=== PATIENT | female | born 1945 | race Caucasian/White ===

== ENCOUNTER 2019-12-26 11:50 | Outpatient (CLI) | payer MEDICARE, SELFPAY ==
[2019-12-26 12:04] LABS: Basophils Absolute Auto 0.02 K/mm3 (0.00-0.10); Basophils Percent Auto 0.3 % (0.0-1.0); Eosinophils Absolute Auto 0.33 K/mm3 (0.02-0.50); Eosinophils Percent Auto 4.8 % (1.0-6.0); Hematocrit 36.6 % (35.0-42.0); Hemoglobin 11.7 g/dL (11.7-13.8); Immature Granulocyte Absolute 0.02 K/mm3 (0.00-0.00); Immature Granulocyte Percent A 0.3 % (0.0-0.0); Lymphocytes Absolute Auto 1.74 K/mm3 (1.10-4.50); Lymphocytes Percent Auto 25.1 % (18.0-42.0); Mean Corpuscular Hemoglobin 29.4 pg (27.0-31.0); Mean Platelet Volume 10.2 fl (9.2-11.8); Monocytes Absolute Auto 0.65 K/mm3 (0.10-0.90); Monocytes Percent Auto 9.4 % (2.0-11.0); Neutrophils Absolute Auto 4.2 K/mm3 (1.7-7.2); Neutrophils Percent Auto 60.1 % (50.0-70.0); Platelet Count Result 249 K/mm3 (150-420); Red Blood Count 3.98 M/mm3 (4.20-5.40); Red Cell Distribution Width 13.6 % (11.6-14.4); White Blood Count 6.9 K/mm3 (4.8-10.8)
[2019-12-26 13:23] LABS: Alanine Aminotransferase 18 U/L (14-59); Albumin Level 3.4 g/dL (3.4-5.0); Alkaline Phosphatase 76 U/L (46-116); Anion Gap 11.9 mmol/L (7-16); Aspartate Amino Transferase 17 U/L (15-37); Bilirubin,Total 0.3 mg/dL (0.00-1.00); Blood Urea Nitrogen 20 mg/dL (7-18); Calcium 9.4 mg/dL (8.5-10.1); Carbon Dioxide 31 mmol/L (21-32); Chloride 98 mmol/L (98-108); Cholesterol 166 mg/dL (0-200); Estimated Glomerular Filt Rate 42; Free T4 Free Thyroxine 1.42 ng/dL (0.76-1.46); Glucose 280 mg/dL (70-99); HDL Direct 52 mg/dL (40-60); LDL Cholesterol Calculated 85 mg/dL (<130); Osmolality Calculated 294 mOsm/kg (285-295); Potassium 4.9 mmol/L (3.5-5.1); Sodium 136 mmol/L (136-145); Thyroid Stimulating Hormone 6.93 uIU/mL (0.36-3.74); Total Protein 7.1 g/dL (6.4-8.2); Triglycerides 146 mg/dL (0-150); Vitamin B12 1394 pg/mL (193-986)
[2019-12-26 14:54] LABS: Add Urine Microscopic? YES; Appearance Urine Cloudy (Clear); Bilirubin Urine Negative (Negative); Blood Urine Negative (Negative); Color Urine Yellow (Yellow); Glucose Urine UA Trace (Negative); Ketones Urine Negative (Negative); Leukocyte Esterase Ur 3+ LEU/UL (Negative); Nitrate Urine Negative (Negative); Protein Urine Negative (Negative); Urobilinogen Urine 0.2 mg/dL (0.2-1.0); pH Urine 6.5 (5.0-8.0)
[2019-12-26 15:02] LABS: Bacteria Urine 3+ /hpf; RBC Urine 0-2 /hpf (0-2); Squamous Epithelial Cell Urine Rare /hpf (Few); WBC Urine 51-75 /hpf (0-3)
[2019-12-29 10:33] LABS: Vitamin D 25 Hydroxy 30 ng/mL (30-100)
[2019-12-31 09:33] LABS: Hemoglobin A1C 13.5 % (<5.7)
== END 2019-12-26 11:51 | disposition home or self-care (01) ==
LOC: CHSLAB 11:53
PROVIDERS: PCP Internal Medicine; Visit Provider Internal Medicine
DX: E03.9 Hypothyroidism, unspecified (principal); E11.65 Type 2 diabetes mellitus with hyperglycemia; D51.9 Vitamin B12 deficiency anemia, unspecified; I10 Essential (primary) hypertension; M81.0 Age-related osteoporosis without current pathological fracture; R31.9 Hematuria, unspecified
CPT/HCPCS: 36415; 80053; 80061; 81001; 82306; 82607; 83036; 84439; 84443; 85025; 87077; 87086; 87088; 87186

== ENCOUNTER 2021-01-08 14:58 | Outpatient (CLI) | payer MEDICARE, SELFPAY ==
[2021-01-08 15:17] LABS: Basophils Absolute Auto 0.03 K/mm3 (0.00-0.10); Basophils Percent Auto 0.5 % (0.0-1.0); Eosinophils Absolute Auto 0.27 K/mm3 (0.02-0.50); Eosinophils Percent Auto 4.8 % (1.0-6.0); Hematocrit 35.2 % (35.0-42.0); Hemoglobin 11.5 g/dL (11.7-13.8); Immature Granulocyte Absolute 0.02 K/mm3 (0.00-0.00); Immature Granulocyte Percent A 0.4 % (0.0-0.0); Lymphocytes Absolute Auto 1.28 K/mm3 (1.10-4.50); Lymphocytes Percent Auto 22.6 % (18.0-42.0); Mean Corpuscular HGB Conc 32.7 g/dL (32.0-36.0); Mean Corpuscular Hemoglobin 31.1 pg (27.0-31.0); Mean Corpuscular Volume 95.1 fL (78.0-102.0); Mean Platelet Volume 9.8 fl (9.2-11.8); Monocytes Absolute Auto 0.49 K/mm3 (0.10-0.90); Monocytes Percent Auto 8.6 % (2.0-11.0); Neutrophils Absolute Auto 3.6 K/mm3 (1.7-7.2); Neutrophils Percent Auto 63.1 % (50.0-70.0); Platelet Count Result 257 K/mm3 (150-420); Red Cell Distribution Width 13.5 % (11.6-14.4); White Blood Count 5.7 K/mm3 (4.8-10.8)
[2021-01-08 15:33] LABS: Add Urine Microscopic? YES; Appearance Urine Cloudy (Clear); Bilirubin Urine Negative (Negative); Blood Urine 3+ (Negative); Color Urine Light Yellow (Yellow); Glucose Urine UA 3+ (Negative); Ketones Urine Trace (Negative); Leukocyte Esterase Ur Trace LEU/UL (Negative); Nitrate Urine Positive (Negative); Protein Urine Negative (Negative); Urobilinogen Urine 0.2 mg/dL (0.2-1.0); pH Urine 5.5 (5.0-8.0)
[2021-01-08 15:34] LABS: RBC Urine 21-50 /hpf (0-2); Squamous Epithelial Cell Urine Few /hpf (Few); WBC Urine >75 /hpf (0-3)
[2021-01-08 15:36] LABS: Bacteria Urine 4+ /hpf
[2021-01-08 15:45] LABS: Creatinine Urine 54.09 mg/dL (40-278); MALB Creatinine Ratio 25.3 mg/g (0-30); Microalbumin Urine Random 13.7 mg/L
[2021-01-08 15:47] LABS: Hemoglobin A1C 13.7 % (<5.7)
[2021-01-08 16:21] LABS: Alanine Aminotransferase 15 U/L (14-59); Alkaline Phosphatase 145 U/L (46-116); Anion Gap 12 mmol/L (8-16); Aspartate Amino Transferase 11 U/L (15-37); Bilirubin,Total 0.3 mg/dL (0.00-1.00); Blood Urea Nitrogen 21 mg/dL (7-18); Calcium 9.1 mg/dL (8.5-10.1); Carbon Dioxide 25 mmol/L (21-32); Chloride 100 mmol/L (98-108); Cholesterol 142 mg/dL (0-200); Estimated Glomerular Filt Rate 51; Glucose 356 mg/dL (70-99); HDL Direct 47 mg/dL (40-60); LDL Cholesterol Calculated 63 mg/dL (<130); Osmolality Calculated 301 mOsm/kg (285-295); Potassium 5.1 mmol/L (3.5-5.1); Sodium 137 mmol/L (136-145); Thyroid Stimulating Hormone 7.31 uIU/mL (0.36-3.74); Total Protein 6.5 g/dL (6.4-8.2); Triglycerides 159 mg/dL (0-150); Vitamin B12 1498 pg/mL (193-986)
[2021-01-12 09:13] LABS: T4 Thyroxine 8.1 mcg/dL (5.1-11.9)
== END 2021-01-08 14:59 | disposition home or self-care (01) ==
PROVIDERS: PCP Internal Medicine; Visit Provider Internal Medicine
DX: E03.9 Hypothyroidism, unspecified (principal); E11.65 Type 2 diabetes mellitus with hyperglycemia; D51.9 Vitamin B12 deficiency anemia, unspecified; E78.5 Hyperlipidemia, unspecified; R82.90 Unspecified abnormal findings in urine
CPT/HCPCS: 36415; 80053; 80061; 81001; 82043; 82607; 83036; 84436; 84443; 85025; 87086; 87186

== ENCOUNTER 2021-04-03 12:59 | Outpatient (CLI) | payer MEDICARE, SELFPAY ==
[2021-04-03 13:48] LABS: Anion Gap 8 mmol/L (8-16); Blood Urea Nitrogen 17 mg/dL (7-18); Carbon Dioxide 28 mmol/L (21-32); Chloride 103 mmol/L (98-108); Estimated Glomerular Filt Rate 49; Glucose 251 mg/dL (70-99); Osmolality Calculated 297 mOsm/kg (285-295); Potassium 4.6 mmol/L (3.5-5.1); Sodium 139 mmol/L (136-145)
== END 2021-04-03 13:00 | disposition home or self-care (01) ==
LOC: CHSLAB 13:03
PROVIDERS: PCP Internal Medicine; Visit Provider Anesthesiology
DX: E11.9 Type 2 diabetes mellitus without complications (principal)
CPT/HCPCS: 36415; 80048

== ENCOUNTER 2021-04-15 02:28 | Day surgery (SDC) | payer MEDICARE, SELFPAY ==
[2021-04-02 15:12] VITALS: BMI 41.2
--- NOTE | 2021-04-15 07:35 | WPDHPUPDATE1 ---
History and Physical Update Update Date/Time: 04/15/21 07:35 History and Physical has been reviewed, including an updated exam of the patient. There are NO changes in the patient's condition. Risks, benefits, and alternatives have been discussed and questions answered. Patient agrees to proceed with procedure.
--- NOTE | 2021-04-15 07:36 | WPDHPUPDATE1 ---
History and Physical Update Update Date/Time: 04/15/21 07:36 History and Physical has been reviewed, including an updated exam of the patient. There are NO changes in the patient's condition. Risks, benefits, and alternatives have been discussed and questions answered. Patient agrees to proceed with procedure.
--- NOTE | 2021-04-15 08:08 | WPDHPUPDATE1 ---
History and Physical Update Update Date/Time: 04/15/21 08:08 History and Physical has been reviewed, including an updated exam of the patient. There are NO changes in the patient's condition. Risks, benefits, and alternatives have been discussed and questions answered. Patient agrees to proceed with procedure.
--- NOTE | 2021-04-15 08:09 | WPDHPUPDATE1 ---
History and Physical Update Update Date/Time: 04/15/21 08:09 History and Physical has been reviewed, including an updated exam of the patient. There are NO changes in the patient's condition. Risks, benefits, and alternatives have been discussed and questions answered. Patient agrees to proceed with procedure.
[2021-04-15 08:47] VITALS: BP 149/77; PULSE 99; RESP 18; TEMP 36.4; O2SAT 96
[2021-04-15] MEDS: LACTATED RINGERS 1,000 ML 30 ML IV CONT (09:05)
[2021-04-15 09:08] LABS: Glucose Point of Care 242 mg/dl (65-105)
--- NOTE | 2021-04-15 09:34 | WPDANESEPPF ---
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 with Frozen Section and Complex Repair or Local Tissue Transfer or Full Thickness Skin Graft - Ariel Chase MD Date/Time: 04/15/21 09:34 Surgeon: Ariel Chase MD Pre Op Diagnosis: bcca right upper bridge of nose Patient Data Age: 75 Gender: F Height: 1.57 m Weight: 102.27 kg Last Vital Signs Temp 36.4 C L 04/15/21 08:47 Pulse 99 04/15/21 08:47 Resp 18 04/15/21 08:47 BP 149/77 H 04/15/21 08:47 Pulse Ox 96 04/15/21 08:47 Allergies Allergy/AdvReac Type Severity Reaction Status Date / Time Penicillins AdvReac Itching Verified 04/15/21 09:17 Home Medications Medication Instructions Recorded Confirmed Type acetaminophen [Tylenol Arthritis 650 mg PO Q12H 06/01/19 04/15/21 History Pain] aspirin 81 mg PO DAILY 06/01/19 04/15/21 History gabapentin See Rx Instructions .ROUTE .COMPLEX 06/01/19 04/15/21 History glimepiride 2 mg PO BID 06/01/19 04/15/21 History glucosamine-chondroitin [Osteo 2 tablet PO DAILY 06/01/19 04/15/21 History Bi-Flex] levothyroxine 125 mcg PO DAILY 06/01/19 04/15/21 History lisinopril 20 mg PO DAILY 06/01/19 04/15/21 History loratadine [Claritin] 10 mg PO DAILY 06/01/19 04/15/21 History metformin 1,000 mg PO BID 06/01/19 04/15/21 History sg-ld-vauj-FA-Ca carb-vit K 1 tablet PO DAILY 06/01/19 04/15/21 History [Women's Multivitamin] omega 6-mus-ept-fish oil [Fish Oil] 1 cap PO DAILY 06/01/19 04/15/21 History omeprazole 40 mg PO DAILY 06/01/19 04/15/21 History pioglitazone [Actos] 45 mg PO DAILY 06/01/19 04/15/21 History pravastatin 20 mg PO DAILY 06/01/19 04/15/21 History sitagliptin [Januvia] 100 mg PO DAILY 06/01/19 04/15/21 History venlafaxine [Effexor XR] 37.5 mg PO DAILY 06/01/19 04/15/21 History vitamin H70-solav acid 2 tablet PO DAILY 06/01/19 04/15/21 History solifenacin 10 mg PO DAILY 04/02/21 04/15/21 History tramadol 50 mg BID PRN 04/02/21 04/15/21 History Laboratory Tests 04/15/21 09:03 POC Capillary Glucose 242 mg/dl H mg/dl (65-105) Patient hx anesthesia problems: none Family hx anesthesia problems: none Results Review: All pre-operative results and documents have been reviewed as part of the pre-operative evaluation. [facility] Past Medical History Medical History Anxiety Arthritis B12 deficiency Chronic knee pain Diabetes mellitus Dyslipidemia GERD (gastroesophageal reflux disease) Hx of malignant neoplasm of breast Hypertension Hypothyroidism Surgical History Surgical History History of lumpectomy of left breast Social History Social History Smoking packs per day: 0.5 Smoking cigarettes per day: 10.0 Years smoked: 10 Smoking pack-years: 5.00 Smoking status: Former smoker Tobacco type: cigarettes Second hand tobacco smoke exposure: No Additional smoking assessment comments: STATES QUIT AGE 29 Alcohol intake: current Alcohol use details: seldom Substance use: never Substance use type: does not use Living arrangements: with family Spiritual care concerns: No Anes - Eval Final PreProcedure Day of Procedure 04/15/21 09:34 Patient weight: morbidly obese Heart: regular rate and rhythm Lungs: decreased breath sounds Airway: Mallampati scale class II Neurological: other (alert) Last oral intake: >/= 8 hours ASA classification: III Emergent: no Anesthetic plan: proceed Anesthesia type and monitoring: general LMA and standard monitoring Results Review: All pre-operative results and documents have been reviewed as part of the pre-operative evaluation. Informed Consent: The patient's anesthetic plan and its attendant risks and benefits were discussed with the patien
[2021-04-15] MEDS: BALANCED SALT SOLN OPHTH IRRIG 30 ML BTL EACH EYE (10:15)
[2021-04-15] MEDS: LIDO 1%/EPINEPHRINE 1:100,000 50 ML VIAL INFILTRATE (11:20)
--- NOTE | 2021-04-15 11:29 | P.OPB_ITS ---
Procedure Note - Brief Procedure Note - Brief Date of procedure: 04/15/21 Pre-op diagnosis: bcca right upper bridge of nose Post-op diagnosis: same Procedure performed: 1.2 cm excision of BCC right upper nasal bridge with FS x2 and complex repair 3 cm. Anesthesia: MAC Surgeon: Ariel Chase MD Customer Care Associate: Siri North Estimated blood loss (mL): 1 Drains: No Packing: No Pathology: yes Complications: No immediate complications Condition: stable Disposition: same day
[2021-04-15 11:40] VITALS: BP 101/55; PULSE 102; RESP 20; O2SAT 93
[2021-04-15 11:48] LABS: Glucose Point of Care 192 mg/dl (65-105)
--- NOTE | 2021-04-15 12:05 | W.PM.PROC2 ---
Procedure Note - Detailed Date of Procedure 04/15/21 Pre-op Diagnosis bcca right upper bridge of nose Post-op Diagnosis same Procedure Performed 1.2 cm excision of basal cell carcinoma right upper bridge of nose with frozen section x2 and complex repair for the 3 cm Surgeon Ariel Chase MD Assistant In Nursing [facility] Anesthesia MAC Indications Prior biopsy Description of Procedure The the site on the patient's upper nose was marked in the holding area. She was taken to the operating room placed supine on the operating table. A time-out was held and confirmed. She was given IV sedation the face was prepped and draped in usual fashion the site was carefully marked for excision estimating the periphery needed. This area was widely infiltrated with 1% lidocaine with epinephrine. The excision was carried out through the skin and into subcutaneous tissue. The specimen was sent to pathology with a suture marking the most superior aspect as 12 o'clock. A the pathologist reported that the 7-8 o'clock margin was positive. A 2nd specimen comprising the 6-9 o'clock margin about 4 mm in width was sent with a new 7:00 a.m. margin marked with a suture. Pathologist report indicates all margins were free. Wound closure was accomplished by widely undermining of the margins on both sides this somewhat longitudinal excision of the undermining was 1-1/2 cm to 2 cm. This allowed approximation of the wound margins and closure with intradermal 4-0 Vicryl and a running 5 0 nylon standing cones were removed at both ends to improve contour. The patient is discharged home with instructions in wound care and follow-up. She has tramadol at home and may also use Tylenol and ice packs for comfort. Estimated Blood Loss 1 Drains No Packing No Pathology yes Complications No immediate complications Condition stable Disposition same day
[2021-04-15 12:10] VITALS: BP 140/79; PULSE 76; RESP 20
== END 2021-04-15 12:57 | disposition home or self-care (01) ==
PROVIDERS: PCP Internal Medicine; Visit Provider Plastic Surgery
PROC: (CPT 11642; principal; 2021-04-15 10:15)
DX: C44.311 Basal cell carcinoma of skin of nose (principal); E11.9 Type 2 diabetes mellitus without complications; I10 Essential (primary) hypertension; E78.5 Hyperlipidemia, unspecified; E03.9 Hypothyroidism, unspecified; K21.9 Gastro-esophageal reflux disease without esophagitis; F41.9 Anxiety disorder, unspecified; E53.8 Deficiency of other specified B group vitamins; Z85.3 Personal history of malignant neoplasm of breast; Z87.891 Personal history of nicotine dependence; E66.01 Morbid (severe) obesity due to excess calories; Z68.41 Body mass index [BMI] 40.0-44.9, adult; Z79.82 Long term (current) use of aspirin; Z79.84 Long term (current) use of oral hypoglycemic drugs
CPT/HCPCS: 11642; 13152; 82948; 88305; 88331; J2250; J2405; J2704; J3010; J7120

== ENCOUNTER 2021-05-08 15:59 | Inpatient (IN) | payer MEDICARE, SELFPAY ==
[2021-05-08] VITALS (14 sets, daily range): BP systolic 116–173; BP diastolic 53–119; PULSE 105–137; RESP 25–32; TEMP 36.6–37.4; O2SAT 92–99
--- NOTE | ~2021-05-08 | CT_ITS ---
EXAMINATION: CTA brain DATE: 05/08/2021 17:06 INDICATION: Altered mental status. TECHNIQUE: Computed tomographic angiography (CTA) of the head was performed with 100 mL Omnipaque-350 intravenous contrast. Automated exposure control and iterative reconstruction technique were employe d. The dose-length product was 707.79 mGy-cm. Maximum intensity projection 3D reconstructions were c reated. Volume-rendered 3D reconstructions of the intracranial arteries were created by the technolog ist on a separate workstation. COMPARISON: Head CT 05/08/2021 FINDINGS: There is mild motion artifact. There is diffuse brain volume loss. There are scattered area s of low attenuation in the cerebral white matter, which is within normal limits for the patient's ag e. There is no intracranial hemorrhage, acute infarction, or abnormal intracranial mass lesion. The v entricles are normal in size. The orbits are normal. The paranasal sinuses are clear. The mastoid air cells are normal. Right vertebral artery is dominant. There is no significant stenosis of basilar ar rosalinda or the posterior cerebral arteries. There is mild stenosis of the intracranial internal carotid arteries. The posterior communicating arteries are normal. There is no significant stenosis of the an terior or middle cerebral arteries. Anterior communicating artery is normal. There is no aneurysm. IMPRESSION: 1. Normal aging brain. No aneurysm or significant intracranial arterial stenosis. Reviewed, dictated and finalized at location A. IMPRESSION: 1. Normal aging brain. No aneurysm or significant intracranial arterial stenosi s.
--- NOTE | ~2021-05-08 | CT_ITS ---
EXAMINATION: CT brain wo con DATE: 05/08/2021 16:09 INDICATION: Unresponsive. Confusion. TECHNIQUE: Computed tomography (CT) of the head was performed without intravenous contrast. The mA wa s adjusted according to patient size. Iterative reconstruction technique was employed. The dose-lengt h product was 681.00 mGy-cm. COMPARISON: None FINDINGS: There is mild motion artifact. There is diffuse brain volume loss. There are scattered area s of low attenuation in the cerebral white matter, which is within normal limits for the patient's ag e. There is no intracranial hemorrhage, acute infarction, or abnormal intracranial mass lesion. The v entricles are normal in size. The paranasal sinuses are clear. The orbits are normal. The mastoid air cells are normal. IMPRESSION: 1. Normal aging brain. I called this result to Dr. Gilman. Reviewed, dictated and finalized at location A.
--- NOTE | ~2021-05-08 | MR_ITS ---
EXAMINATION: MR brain/brain stem wo con EXAM DATE: 05/09/2021 12:34 INDICATION: Stroke Like Symptoms. TECHNIQUE: Magnetic resonance imaging (MRI) of the brain/brain stem obtained without contrast. Love brian T1, axial diffusion, gradient echo (T2*), T1, T2, FLAIR sequences obtained. Correlation is made t o CT from yesterday. FINDINGS: Study is significantly limited due to patient motion. No acute infarction suspected. No hyd rocephalus, evidence of extra-axial collection or acute intracranial findings. IMPRESSION: Limited exam without findings identified. Reviewed, dictated and finalized at location A.
--- NOTE | ~2021-05-08 | CT_ITS ---
EXAMINATION: CTA chest EXAM DATE: 05/09/2021 10:28 INDICATION: r/o PE, Possible new onset A fib R/O PE TECHNIQUE: Spiral CT of the chest following intravenous injection of 100 mL Omnipaque 350. Axial, co nick and sagittal images of the chest were reviewed. Coronal maximum intensity pixel images of ches t reviewed. The dose-length product (DLP) for this examination was 899.94 mGy-cm. The exposure was tailored according to patient size (auto mA exposure control), and iterative reconstruction (ASIR) wa s used as additional dose reduction technique. There is no prior study for comparison. FINDINGS: There is no thoracic aortic dissection. Probable right lower lobe posterior and lateral seg mental pulmonary emboli. There are small to moderate bilateral pleural effusions. There is multi segm ental bilateral lower lobe, segmental right middle lobe atelectasis. There is also right upper lobe p redominant airspace disease without volume loss, pneumonia. Small pericardial effusion. Mild to moder ate coronary artery calcification. No mediastinal lymphadenopathy. There is 2.4 x 1.4 cm pancreatic body cystic mass. The differential diagnosis includes pseudocyst, in traductal papillary mucinous neoplasm (IPMN), mucinous cystic neoplasm (MCN), and the less common ser ous cystadenoma and neuroendocrine tumor. Correlate for history of pancreatitis. There is 1.5 cm lef t adrenal lesion, indeterminate on this postcontrast study but statistically most likely adenoma. Mod erate thoracic spondylosis. Subacute chronic appearing left rib fractures. IMPRESSION: 1. Probable right lower lobe segmental pulmonary emboli, low clot burden. 2. Right upper lobe posterior segmental pneumonia. 3. Small to moderate pleural effusions, multi segmental basilar atelectasis. 4. Cystic pancreatic mass; recommend 4-6 month follow-up abdomen CT or MRI. 5. Indeterminate left adrenal lesion statistically likely adenoma. Reviewed, dictated and finalized at location A.
--- NOTE | ~2021-05-08 | XR_ITS ---
EXAMINATION: XR chest 1V portable EXAM DATE: 05/10/2021 11:40 INDICATION: CHF, comparison. TECHNIQUE: Portable AP frontal chest x-ray was obtained. Comparison is made to prior examination from 05/08. FINDINGS: Some progression of diffuse lower lung zone airspace disease likely layering moderate right , small to moderate left pleural effusions. There is adjacent atelectasis. Superimposed right upper l obe pneumonia was suspected on recent CT chest. No pneumothorax. The cardiac silhouette is enlarged. There is pulmonary vascular congestion. IMPRESSION: 1. Progressing pleural effusions, adjacent atelectasis. 2. Progressing right upper lobe opacity probably pneumonia or edema. Reviewed, dictated and finalized at location A.
--- NOTE | ~2021-05-08 | XR_ITS ---
XR chest 1V portable 05/08/2021 17:33 Indication: Shortness of breath. Procedure: AP portable chest Comparison: 08/30/2013 Findings: Cardiomegaly with mild interstitial edema. Small right pleural effusion. There is right bas ilar airspace consolidation, likely atelectasis. No pneumothorax identified. Impression: 1: Cardiomegaly with interstitial edema and small right pleural effusion. Reviewed, dictated and finalized at location A. Impression: 1: Cardiomegaly with interstitial edema and small right pleural effusion.
[2021-05-08 16:11] LABS: Basophils Absolute Auto 0.03 K/mm3 (0.00-0.10); Basophils Percent Auto 0.4 % (0.0-1.0); Eosinophils Absolute Auto 0.48 K/mm3 (0.02-0.50); Eosinophils Percent Auto 5.8 % (1.0-6.0); Hematocrit 35.7 % (35.0-42.0); Hemoglobin 11.3 g/dL (11.7-13.8); Immature Granulocyte Absolute 0.03 K/mm3 (0.00-0.00); Immature Granulocyte Percent A 0.4 % (0.0-0.0); Lymphocytes Absolute Auto 1.28 K/mm3 (1.10-4.50); Lymphocytes Percent Auto 15.4 % (18.0-42.0); Mean Corpuscular HGB Conc 31.7 g/dL (32.0-36.0); Mean Corpuscular Hemoglobin 29.2 pg (27.0-31.0); Mean Corpuscular Volume 92.2 fL (78.0-102.0); Mean Platelet Volume 10.3 fl (9.2-11.8); Monocytes Absolute Auto 0.82 K/mm3 (0.10-0.90); Monocytes Percent Auto 9.9 % (2.0-11.0); Neutrophils Absolute Auto 5.7 K/mm3 (1.7-7.2); Neutrophils Percent Auto 68.1 % (50.0-70.0); Platelet Count Result 223 K/mm3 (150-420); Red Blood Count 3.87 M/mm3 (4.20-5.40); Red Cell Distribution Width 14.3 % (11.6-14.4); White Blood Count 8.3 K/mm3 (4.8-10.8)
--- NOTE | 2021-05-08 16:14 | ECG_ITS ---
Measurements Intervals [place] Rate: 119 P: TN: 0 QRS: 44 QRSD: 85 T: 3 QT: 297 QTc: 419 Interpretive Statements ATRIAL FIBRILLATION WITH RAPID VENTRICULAR RESPONSE DELAYED PRECORDIAL R/S TRANSITION BORDERLINE T WAVE ABNORMALITY- INFERIOR LEADS BASELINE ARTIFACT- II, III, AVF, V1 ABNORMAL ECG Electronically Signed On 05-08-2021 16:54:07 CDT by Russell Velazquez D.O.
[2021-05-08 16:25] LABS: INR 1.1; Partial Thromboplastin Time 27.1 SEC (23.90-30.70); Prothrombin Time 11.9 Seconds (9.50-12.10)
[2021-05-08 16:37] LABS: Alanine Aminotransferase 24 U/L (14-59); Albumin Level 3.4 g/dL (3.4-5.0); Alkaline Phosphatase 74 U/L (46-116); Anion Gap 11 mmol/L (8-16); Aspartate Amino Transferase 20 U/L (15-37); Bilirubin,Total 0.5 mg/dL (0.00-1.00); Blood Urea Nitrogen 16 mg/dL (7-18); Calcium 8.8 mg/dL (8.5-10.1); Carbon Dioxide 27 mmol/L (21-32); Chloride 101 mmol/L (98-108); Creatine Kinase 46 U/L (26-192); Estimated Glomerular Filt Rate 45; Glucose 245 mg/dL (70-99); Osmolality Calculated 297 mOsm/kg (285-295); Potassium 4.4 mmol/L (3.5-5.1); Sodium 139 mmol/L (136-145); Total Protein 7.3 g/dL (6.4-8.2); Troponin I 29.8 ng/L (0.00-60.4)
[2021-05-08 16:47] LABS: Ethanol < 3 mg/dL (0-6)
[2021-05-08 16:54] LABS: Lactic Acid Reflex 2.1 mmol/L (0.4-2.0)
[2021-05-08] MEDS: METOPROLOL TARTRATE INJ 5 MG/5 ML VIAL 2.5 MG IV PUSH (17:08)
[2021-05-08] MEDS: ASPIRIN 300 MG SUPPOSITORY RECTAL (17:36)
[2021-05-08] MEDS: SODIUM CHLORIDE 0.9% IV 1,000 ML 150 ML IV CONT (17:36)
--- NOTE | 2021-05-08 17:59 | PC.NURSE ---
[address] [facility] 27 [id number] [facility] 17 SEE STAT HEAD PAPER WORK
[2021-05-08] MEDS: LORazepam INJ (*CRX) 2 MG/ML VIAL 1 MG IV PUSH (18:35)
[2021-05-08] MEDS: methylPREDNISolone SOD SUCC 125 MG VIAL IV PUSH (18:35)
[2021-05-08] MEDS: ALBUTEROL SULFATE (*SP) INHALER 2 PUFF INHALATION (18:35)
[2021-05-08] MEDS: ALBUTEROL SULFATE NEB 2.5 MG/3 ML INH (19:15)
[2021-05-08 19:39] LABS: Reflex Lactic Acid Yes or No Add Lactic
[2021-05-08 20:00] LABS: Appearance Urine Clear (Clear); Bilirubin Urine Negative (Negative); Color Urine Yellow (Yellow); Glucose Urine UA Trace (Negative); Ketones Urine Trace (Negative); Leukocyte Esterase Ur Negative (Negative); Nitrate Urine Negative (Negative); Protein Urine Trace (Negative); Specific Grav Ur >= 1.030 (1.010-1.020); Urobilinogen Urine 0.2 mg/dL (0.2-1.0)
[2021-05-08 20:07] LABS: Amphetamine Screen Urine Negative (Negative); Barbiturate Screen Urine Negative (Negative); Benzodiazepines Screen Urine Positive (Negative); Cannabinoid Screen Urine Negative (Negative); Cocaine Screen Urine Negative (Negative); Methadone Screen Urine Negative (Negative); Opiate Screen Urine Negative (Negative); Phencyclidine Screen Urine Negative (Negative)
[2021-05-08 20:24] LABS: Add Urine Microscopic? YES; Blood Urine Trace-Intact (Negative)
[2021-05-08 20:25] LABS: Bacteria Urine 4+ /hpf; Squamous Epithelial Cell Urine Few /hpf (Few); WBC Urine 0-3 /hpf (0-3)
--- NOTE | 2021-05-08 20:34 | ED.NEUROSD ---
HPI - Neuro Symptoms/Deficit General Chief Complaint: Suspected CVA Stated Complaint: AMB Time Seen by Provider: 05/08/21 16:01 Source: family, EMS and RN notes reviewed Mode of arrival: EMS Limitations: altered mental status and clinical condition History of Present Illness HPI Narrative: sudden LOC and breathing difficulty. Onset (ago): hour(s) (1) Last Observed Normal: 15:00 Timing confirmed by: family member Location: speech, left arm (no movement) and altered (no speaking or opening eyes.) History of same: No Severity: severe Quality: weak Relieving factors: none Exacerbating factors: none Context: sudden onset On Anticoagulants: Yes (daily aspirin) Associated symptoms: shortness of breath and weakness Treatments Prior to Arrival: oxygen Related Data Home Medications Medication Instructions Recorded Confirmed Januvia 100 mg PO DAILY 06/01/19 05/08/21 Women's Multivitamin 1 tablet PO DAILY 06/01/19 05/08/21 aspirin 81 mg PO DAILY 06/01/19 05/08/21 gabapentin 600 mg PO HS 06/01/19 05/08/21 glimepiride 2 mg PO BID 06/01/19 05/08/21 glucosamine-chondroitin [Osteo 2 tablet PO DAILY 06/01/19 05/08/21 Bi-Flex] levothyroxine 125 mcg PO DAILY 06/01/19 05/08/21 lisinopril 20 mg PO DAILY 06/01/19 05/08/21 loratadine [Claritin] 10 mg PO DAILY 06/01/19 05/08/21 metformin 1,000 mg PO BID 06/01/19 05/08/21 omega 9-toh-hao-fish oil [Fish Oil] 1 cap PO DAILY 06/01/19 05/08/21 omeprazole 40 mg PO DAILY 06/01/19 05/08/21 pioglitazone [Actos] 45 mg PO DAILY 06/01/19 05/08/21 pravastatin 20 mg PO DAILY 06/01/19 05/08/21 venlafaxine [Effexor XR] 37.5 mg PO DAILY 06/01/19 05/08/21 vitamin C37-czxfr acid 2 tablet PO DAILY 06/01/19 05/08/21 solifenacin 10 mg PO DAILY 04/02/21 05/08/21 tramadol 50 mg BID PRN 04/02/21 05/08/21 acetaminophen [Tylenol] 650 mg PO BID 05/08/21 05/08/21 Allergies Allergy/AdvReac Type Severity Reaction Status Date / Time Penicillins AdvReac Itching Verified 04/15/21 09:17 Review of Systems Review of Systems: ROS unobtainable: Yes unobtainable due to medical condition PMFSH Past Medical History Medical History Anxiety Arthritis B12 deficiency Chronic knee pain Diabetes mellitus Dyslipidemia GERD (gastroesophageal reflux disease) Hx of malignant neoplasm of breast Hypertension Hypothyroidism Surgical History Surgical History History of lumpectomy of left breast Social History Social History Smoking packs per day: 0.5 Smoking cigarettes per day: 10.0 Years smoked: 10 Smoking pack-years: 5.00 Smoking status: Former smoker Tobacco type: cigarettes Second hand tobacco smoke exposure: No Additional smoking assessment comments: STATES QUIT AGE 29 Alcohol intake: current Alcohol use details: seldom Substance use: never Substance use type: does not use Spiritual care concerns: No Exam Const: General: diaphoretic, ill appearing and patient obtunded (pt opened her eyes to command once. initially pt was able to move only th) Nutritional Appearance: obese Orientation/consciousness: patient obtunded Limitations: altered mental status HENMT: Head: normal to inspection, No palpable skull fracture present, normocephalic and atraumatic Ears: external ears normal and TM's normal bilaterally General nose exam: Normal external nose present and Normal nares present Face and sinus: normal facial exam Mouth: Yes Normal oral and palatal mucosa present, Yes lip normal, Yes tongue normal, Yes oropharynx normal and Yes moist mucous membranes Throat: posterior oropharynx normal Eyes: Eyelids: eyelids normal Conjunctivae: conjunctivae normal Sclera: sclerae normal Cornea: corneas normal Pupils: Dilated pupils Direct Ophthalmoscopy: normal light reflex Neck: Neck: normal visual inspection and full ROM Ches
[2021-05-08] MEDS: DEXTROSE 5%/0.9% SOD CHL 1,000 ML 100 ML IV CONT (22:25)
[2021-05-08 23:21] LABS: Lactic Acid 1.6 mmol/L (0.4-2.0)
[2021-05-08] MEDS: MORPHINE SULFATE (*CRX) 2 MG/ML INJ IV PUSH (23:28)
--- NOTE | 2021-05-08 23:50 | PC.NURSE ---
Patient non-responsive. Lung sounds coarse. Patient making unintelligble vocalizations. Abdominal breathing present
[2021-05-09] MEDS: LORazepam INJ (*CRX) 2 MG/ML VIAL 1 MG IV PUSH ×4 (00:03→18:46)
[2021-05-09 05:15] LABS: Basophils Absolute Auto 0.01 K/mm3 (0.00-0.10); Basophils Percent Auto 0.1 % (0.0-1.0); Hematocrit 33.8 % (35.0-42.0); Hemoglobin 10.5 g/dL (11.7-13.8); Immature Granulocyte Absolute 0.05 K/mm3 (0.00-0.00); Immature Granulocyte Percent A 0.5 % (0.0-0.0); Mean Corpuscular HGB Conc 31.1 g/dL (32.0-36.0); Mean Corpuscular Hemoglobin 29.5 pg (27.0-31.0); Mean Corpuscular Volume 94.9 fL (78.0-102.0); Mean Platelet Volume 10.3 fl (9.2-11.8); Monocytes Absolute Auto 0.44 K/mm3 (0.10-0.90); Monocytes Percent Auto 4.4 % (2.0-11.0); Neutrophils Absolute Auto 8.9 K/mm3 (1.7-7.2); Platelet Count Result 214 K/mm3 (150-420); Red Blood Count 3.56 M/mm3 (4.20-5.40); Red Cell Distribution Width 14.1 % (11.6-14.4); White Blood Count 9.9 K/mm3 (4.8-10.8)
[2021-05-09 05:26] LABS: Alanine Aminotransferase 30 U/L (14-59); Albumin Level 2.7 g/dL (3.4-5.0); Alkaline Phosphatase 64 U/L (46-116); Anion Gap 9 mmol/L (8-16); Aspartate Amino Transferase 22 U/L (15-37); Bilirubin,Total 0.3 mg/dL (0.00-1.00); Blood Urea Nitrogen 23 mg/dL (7-18); Calcium 7.7 mg/dL (8.5-10.1); Carbon Dioxide 26 mmol/L (21-32); Chloride 103 mmol/L (98-108); Estimated Glomerular Filt Rate 35; Osmolality Calculated 310 mOsm/kg (285-295); Potassium 5.6 mmol/L (3.5-5.1); Sodium 138 mmol/L (136-145); Total Protein 6.3 g/dL (6.4-8.2)
[2021-05-09 05:29] LABS: Glucose 482 mg/dL (70-99)
[2021-05-09 05:30] VITALS: O2SAT 96
[2021-05-09] MEDS: SODIUM CHLORIDE 0.9% IV 1,000 ML 100 ML IV CONT (05:44)
[2021-05-09] MEDS: INSULIN HUMAN REGULAR (*BKC) 100 UNITS/ML IV PUSH (05:46)
[2021-05-09 06:46] LABS: Glucose Point of Care 377 mg/dl (65-105)
[2021-05-09 07:42] LABS: Glucose Point of Care 355 mg/dl (65-105)
[2021-05-09 08:00] VITALS: BP 96/49; PULSE 102; RESP 24; TEMP 36.9; O2SAT 98
--- NOTE | 2021-05-09 09:44 | PM.IMHP ---
H&P: HPI History of Present Illness Date/Time: 05/09/21 09:44 Neris Fabian is a 75 year old female who has been admitted for Stroke like symptoms. The was available for more history. , Byron, states that his has had episodes like this in the past. Stating she does this when she is under a lot of stress. She will become non-verbal, not move, have some breathing issues and then 2-3 days later she is back to her normal self. Byron states that this episode started about 2 days ago. His was acting normal then she started to talk less and less over a day or so. She then got to the point where she was unable to move or communicate. She was starting to mumble like she has done during past similar episodes. Eventually she required assistance with getting to the restroom and was incontinent. And then she was slowly becoming unresponsive except to pain with minimal movement. Byron spoke with his daughter who shares POA with him and it was decided to make Neris a DNR but to do everything to support her, to find a cause, treat findings, but no CPR should her heart stop. He is ok with cardioversion if it is needed as well as intubation with sedation. Chief Complaint: Unresponsive Review of Systems Review of Systems: ROS unobtainable: Yes unobtainable due to medical condition PMFSH Past Medical History Medical History Anxiety Arthritis B12 deficiency Chronic knee pain Diabetes mellitus WELCH (dyspnea on exertion) Dyslipidemia GERD (gastroesophageal reflux disease) Hx of malignant neoplasm of breast Hypertension Hypothyroidism Systolic murmur Surgical History Surgical History History of lumpectomy of left breast Social History Social History Smoking packs per day: 0.5 Smoking cigarettes per day: 10.0 Years smoked: 10 Smoking pack-years: 5.00 Smoking status: Former smoker Tobacco type: cigarettes Second hand tobacco smoke exposure: No Additional smoking assessment comments: STATES QUIT AGE 29 Alcohol intake: current Alcohol use details: seldom Substance use: never Substance use type: does not use Spiritual care concerns: No Meds Home Medications and Allergies Home Medications Medication Instructions Recorded Confirmed Type Januvia 100 mg PO DAILY 06/01/19 05/08/21 History Women's Multivitamin 1 tablet PO DAILY 06/01/19 05/08/21 History aspirin 81 mg PO DAILY 06/01/19 05/08/21 History gabapentin 600 mg PO HS 06/01/19 05/08/21 History glimepiride 2 mg PO BID 06/01/19 05/08/21 History glucosamine-chondroitin [Osteo 2 tablet PO DAILY 06/01/19 05/08/21 History Bi-Flex] levothyroxine 125 mcg PO DAILY 06/01/19 05/08/21 History lisinopril 20 mg PO DAILY 06/01/19 05/08/21 History loratadine [Claritin] 10 mg PO DAILY 06/01/19 05/08/21 History metformin 1,000 mg PO BID 06/01/19 05/08/21 History omega 0-tuv-dgs-fish oil [Fish Oil] 1 cap PO DAILY 06/01/19 05/08/21 History omeprazole 40 mg PO DAILY 06/01/19 05/08/21 History pioglitazone [Actos] 45 mg PO DAILY 06/01/19 05/08/21 History pravastatin 20 mg PO DAILY 06/01/19 05/08/21 History venlafaxine [Effexor XR] 37.5 mg PO DAILY 06/01/19 05/08/21 History vitamin V25-wuejn acid 2 tablet PO DAILY 06/01/19 05/08/21 History solifenacin 10 mg PO DAILY 04/02/21 05/08/21 History tramadol 50 mg BID PRN 04/02/21 05/08/21 History acetaminophen [Tylenol] 650 mg PO BID 05/08/21 05/08/21 History Allergies Allergy/AdvReac Type Severity Reaction Status Date / Time Penicillins AdvReac Itching Verified 04/15/21 09:17 Vital Signs Vital Signs - 24 hr 05/08/21 16:00 05/08/21 17:08 05/08/21 17:15 Temperature 97.8 F Pulse Rate 119 H 120 H 105 H Respiratory Rate 32 H 28 H Blood Pressure 152/108 H 143/101 H Pulse Oximetry 98 98 05/08/21 17:30 05/08/21 18:00 05/08/21 18:30 Te
[2021-05-09 09:56] LABS: Anion Gap 9 mmol/L (8-16); Blood Urea Nitrogen 25 mg/dL (7-18); Calcium 7.9 mg/dL (8.5-10.1); Carbon Dioxide 27 mmol/L (21-32); Chloride 105 mmol/L (98-108); Estimated Glomerular Filt Rate 32; Glucose 336 mg/dL (70-99); Osmolality Calculated 309 mOsm/kg (285-295); Potassium 4.9 mmol/L (3.5-5.1); Sodium 141 mmol/L (136-145)
[2021-05-09 11:15] LABS: NT Pro B Type Natriuretic Pept 6531 pg/mL (0-450)
[2021-05-09] MEDS: MORPHINE SULFATE (*CRX) 2 MG/ML INJ IV PUSH ×2 (11:40→21:52)
[2021-05-09 12:00] VITALS: BP 88/46; PULSE 97; RESP 22; TEMP 36.3; O2SAT 100
[2021-05-09 12:44] LABS: Glucose Point of Care 281 mg/dl (65-105)
[2021-05-09] MEDS: ENOXAPARIN 30 MG/0.3 ML SYRINGE SUB-Q (13:17)
[2021-05-09] MEDS: ENOXAPARIN 100 MG/ML SYRINGE SUB-Q (13:17)
[2021-05-09] MEDS: FUROSEMIDE INJ 40 MG/4 ML VIAL IV PUSH (13:21)
--- NOTE | 2021-05-09 15:19 | PC.NURSE ---
Patient oxygen SATS stable, non-rebreather @ 15L removed and regular mask applied and O2 set @ 10L.
[2021-05-09] MEDS: PANTOPRAZOLE SODIUM IV 40 MG VIAL IV PUSH (15:34)
[2021-05-09 16:00] VITALS: BP 112/67; PULSE 100; RESP 22; TEMP 36.6; O2SAT 100
[2021-05-09 16:30] LABS: Glucose Point of Care 248 mg/dl (65-105)
[2021-05-09] MEDS: FUROSEMIDE INJ 40 MG/4 ML VIAL 20 MG IV PUSH (16:41)
--- NOTE | 2021-05-09 18:25 | PC.NURSE ---
Patient resting cont. unresponsive O2 SATS stable @ 6L face mask
--- NOTE | 2021-05-09 20:00 | PC.NURSE ---
Completed patient rounding. Patient was pulling on her dempsey, moaning, and attempting to lift herself up from the bed. Patient had pulled her dempsey most of the way out, including removing the statlock. The balloon was deflated, and the urinary catheter was completely removed. Dr. Charles was notified, and he determined that the urinary catheter should not be replaced. Patient continued to be agitated. Additional chux were placed under the patient, and an adult brief was put on the patient. Patient continued to be restless and agitated. It was determined that the patient appeared to be in pain, and morphine was given. Patient was then able to rest comfortably.
--- NOTE | 2021-05-09 20:12 | PC.NURSE ---
Pateint agitated and pulled dempsey catheter out with bulb still intact. Doctor Araceli notified with no new orders to replace. patient has a little blood in shira area from trauma of pulling dempsey catheter out.
[2021-05-09 20:39] VITALS: BP 107/57; PULSE 108; RESP 18; TEMP 37.4; O2SAT 100
[2021-05-09 21:00] LABS: Glucose Point of Care 203 mg/dl (65-105)
[2021-05-09 23:51] VITALS: BP 90/48; PULSE 113; RESP 18; TEMP 36.9; O2SAT 100
[2021-05-10] MEDS: ENOXAPARIN 30 MG/0.3 ML SYRINGE SUB-Q ×2 (00:07→12:31)
[2021-05-10] MEDS: ENOXAPARIN 100 MG/ML SYRINGE SUB-Q ×2 (00:08→12:31)
[2021-05-10] MEDS: LORazepam INJ (*CRX) 2 MG/ML VIAL 1 MG IV PUSH (01:26)
[2021-05-10 04:00] VITALS: BP 108/48; PULSE 111; RESP 18; TEMP 37.3; O2SAT 100
[2021-05-10] MEDS: MORPHINE SULFATE (*CRX) 2 MG/ML INJ IV PUSH (05:19)
[2021-05-10 05:46] VITALS: O2SAT 96
[2021-05-10 07:10] LABS: Hematocrit 32.6 % (35.0-42.0); Hemoglobin 9.7 g/dL (11.7-13.8); Mean Corpuscular HGB Conc 29.8 g/dL (32.0-36.0); Mean Corpuscular Hemoglobin 28.4 pg (27.0-31.0); Mean Corpuscular Volume 95.3 fL (78.0-102.0); Platelet Count Result 198 K/mm3 (150-420); Red Blood Count 3.42 M/mm3 (4.20-5.40); Red Cell Distribution Width 14.6 % (11.6-14.4); White Blood Count 9.7 K/mm3 (4.8-10.8)
[2021-05-10 07:34] LABS: Anion Gap 11 mmol/L (8-16); Blood Urea Nitrogen 35 mg/dL (7-18); Calcium 7.9 mg/dL (8.5-10.1); Carbon Dioxide 26 mmol/L (21-32); Chloride 105 mmol/L (98-108); Estimated Glomerular Filt Rate 21; Glucose 232 mg/dL (70-99); Osmolality Calculated 309 mOsm/kg (285-295); Potassium 4.8 mmol/L (3.5-5.1); Sodium 142 mmol/L (136-145)
[2021-05-10 07:48] LABS: NT Pro B Type Natriuretic Pept 8187 pg/mL (0-450)
[2021-05-10 07:51] LABS: Glucose Point of Care 221 mg/dl (65-105)
[2021-05-10 08:00] VITALS: BP 103/87; PULSE 103; RESP 20; TEMP 36.7; O2SAT 100
[2021-05-10] MEDS: FUROSEMIDE INJ 40 MG/4 ML VIAL 20 MG IV PUSH (08:51)
[2021-05-10] MEDS: PANTOPRAZOLE SODIUM IV 40 MG VIAL IV PUSH (08:51)
[2021-05-10 11:46] LABS: Glucose Point of Care 220 mg/dl (65-105)
[2021-05-10 12:00] VITALS: BP 117/75; PULSE 116; RESP 22; TEMP 37.3; O2SAT 98
--- NOTE | 2021-05-10 13:06 | PM.TDS ---
Transfer Discharge Sum: Prov Provider Date of admission: 05/08/21 20:14 <EDITH Escobar - Last Filed: 05/10/21 14:55> Primary care physician: Melodie Garcia MD <EDITH Escobar - Last Filed: 05/10/21 14:55> Admitting clinician: Guilherme Gilman MD <EDITH Escobar - Last Filed: 05/10/21 14:55> Consults: 05/08/21 Care Coordination Consult Routine Comment: Reason for Consult:: Hospice Referral 05/10/2021 , Byron, would like everything done for his at this time except CPR. He is ok with Cardioversion, Medications, Intubation, etc, just not CPR. <EDITH Escobar - Last Filed: 05/10/21 14:55> DS: Admitting Diagnosis Discharge Date 05/10/2021 <EDITH Escobar - Last Filed: 05/10/21 14:55> Admitting Diagnosis Possible CVA, PE, CHF, new onset A Fib, Pneumonia, ARF <EDITH Escobar - Last Filed: 05/10/21 14:55> DS: Discharge Diagnosis Discharge Diagnosis (1) CHF (congestive heart failure): Code(s): I50.9 - Heart failure, unspecified <EDITH Escobar - Last Filed: 05/10/21 14:55> Status: Acute <EDITH Escobar - Last Filed: 05/10/21 14:55> Assessment and Plan: P-BNP 6531, Will get repeat in AM, Lasix 20 mg BID, Lasix 40 mg once, monitor I&O, VSQ4H, Cardiac Monitoring with Continuous SpO2, Supplemental Oxygen NRB at 15L/min with SpO2 at 96% or better, Echocardiogram ordered 05/10/2021 BNP increased to 8187, images show worsening CHF: IMPRESSION: 1. Progressing pleural effusions, adjacent atelectasis. 2. Progressing right upper lobe opacity probably pneumonia or edema. Lungs more diminished and increased rales <EDITH Escobar - Last Filed: 05/10/21 14:55> (2) ARF (acute renal failure): Code(s): N17.9 - Acute kidney failure, unspecified <Keny Larsen CONVICT GUARD-C - Last Filed: 05/10/21 14:55> Status: Acute <Keny Larsen CONVICT GUARD-C - Last Filed: 05/10/21 14:55> Assessment and Plan: 05/10/2021 This Dx was inadvertently omitted yesterday. Cr 1.17 on admit, 1.45 on 05/09/21, and now 2.24 today, urine is darker in Ramirez bag prior to Pt pulling the catheter out. <Keny Larsen CONVICT GUARD-C - Last Filed: 05/10/21 14:55> (3) Atrial fibrillation, new onset: Code(s): I48.91 - Unspecified atrial fibrillation <Keny Larsen CONVICT GUARD-C - Last Filed: 05/10/21 14:55> Status: Acute <Keny Larsen CONVICT GUARD-C - Last Filed: 05/10/21 14:55> Assessment and Plan: Unable to start PO anticoagulation d/t medical condition, Pt has PE and started Lovenox at a therapeutic dose of 130 mg BID 05/10/2021 continue with SQ Lovenox as Pt is not taking PO at this time. HR is usually around 90-110s and as high as 130s. <Keny LarsenTOMASA-C - Last Filed: 05/10/21 14:55> (4) Acute pulmonary embolism: Qualifiers: Acute cor pulmonale presence: unspecified Pulmonary embolism type: other Qualified Code(s): I26.99 - Other pulmonary embolism without acute cor pulmonale <Keny Larsen CONVICT GUARD-C - Last Filed: 05/10/21 14:55> Code(s): I26.99 - Other pulmonary embolism without acute cor pulmonale <Keny Larsen CONVICT GUARD-C - Last Filed: 05/10/21 14:55> Status: Acute <Keny Larsen CONVICT GUARD-C - Last Filed: 05/10/21 14:55> Assessment and Plan: CTA chest: IMPRESSION: 1. Probable right lower lobe segmental pulmonary emboli, low clot burden. 2. Right upper lobe posterior segmental pneumonia. 3. Small to moderate pleural effusions, multi segmental basilar atelectasis. 4. Cystic pancreatic mass; recommend 4-6 month follow-up abdomen CT or MRI. 5. Indeterminate left adrenal lesion statistically likely adenoma. Started Therapeutic Lovenox 130mg BID, Pt is NPO at the moment, will transition to PO anticoagulation when and if Pt is more alert, This may be related to her A fib which seems to be a new onset A fib as I am unable to
--- NOTE | 2021-05-10 13:19 | PC.NURSE ---
emerald Romerolaundry housekeeping aide from [place] called with bed assignment, patient is accepted to room 345.
--- NOTE | 2021-05-10 13:53 | PC.NURSE ---
patient approved for transfer to [facility] room 345. Report given to Radha PRITCHETT. Family is aware of the transfer and has consented to the transfer. Dino BHAKTA called to provide transport.
--- NOTE | 2021-05-10 14:27 | SUR.OPER ---
[facility] arrived and is Enroute to [facility].
--- NOTE | 2021-05-10 14:31 | PC.NURSE ---
Patient discharged to [facility] and transported via [facility].
[2021-05-22 12:27] LABS: Glucose Point of Care 233 mg/dl (65-105)
== END 2021-05-10 14:30 | disposition short-term general hospital (02) | DRG 64 ==
LOC: CHSED 16:12 → CHS2ND 20:36
PROVIDERS: Nurse Practitioner Family; Admitting Provider Emergency Medicine; Emergency Provider Emergency Medicine; PCP Internal Medicine; Visit Provider Emergency Medicine
DX: I63.9 Cerebral infarction, unspecified (principal); I10 Essential (primary) hypertension; E53.8 Deficiency of other specified B group vitamins; E11.9 Type 2 diabetes mellitus without complications; E78.5 Hyperlipidemia, unspecified; E03.9 Hypothyroidism, unspecified; K21.9 Gastro-esophageal reflux disease without esophagitis; M19.90 Unspecified osteoarthritis, unspecified site; F41.9 Anxiety disorder, unspecified; Z85.3 Personal history of malignant neoplasm of breast; Z87.891 Personal history of nicotine dependence; Z79.899 Other long term (current) drug therapy; I26.99 Other pulmonary embolism without acute cor pulmonale; J18.9 Pneumonia, unspecified organism; N17.9 Acute kidney failure, unspecified; I11.0 Hypertensive heart disease with heart failure; I50.9 Heart failure, unspecified; I48.91 Unspecified atrial fibrillation; E87.5 Hyperkalemia; R01.1 Cardiac murmur, unspecified
CPT/HCPCS: 36415; 70450; 70496; 70551; 71045; 71275; 80048; 80053; 80307; 81001; 82550; 82553; 82948; 83605; 83880; 84484; 85025; 85027; 85610; 85730; 93005; 94640; 96361; 96374; 96375; 99285; A9270; C9113; J0456; J0696; J1650; J1815; J1940; J2060; J2270; J2930; J7030; J7042; Q9967

== ENCOUNTER 2021-05-10 17:21 | Inpatient (IN) | payer MEDICARE, SELFPAY ==
--- NOTE | ~2021-05-10 | CT_ITS ---
EXAMINATION: CT abdomen pelvis wo con DATE: 05/17/2021 12:52 INDICATION: Abdominal pain, chronic kidney failure TECHNIQUE: Computed tomography (CT) of the abdomen and pelvis was performed without intravenous contr ast. Automated exposure control and iterative reconstruction technique were employed. Exam dose: 136 1.67 mGy-cm total exam DLP. COMPARISON: 05/11/2021 bilateral renal ultrasound FINDINGS: There are is prominent dependent bilateral lower lobe consolidation with air bronchograms, right greater than left. Cardiomegaly. Aortic and mitral valve replacements are suggested. Minimal pericardial effusion. Small bilateral pleural effusions. The gallbladder is distended. No gallbladder wall thickening or pericholecystic fluid or fat strandin g is evident. No bile duct or pancreatic duct dilatation is detected. The liver, spleen are unremarkable. Approximately 1.3 x 2.4 cm lesion in the region of the body of pancreas with attenuation of -28 Houns field units. Normal morphology of the adrenal glands. Bilateral renal scarring, more prominent on the left, suggesting bilateral chronic pyelonephritis. No urinary tract calculus or hydroureteronephrosis is detected. The urinary bladder, uterus and adnexal areas are unremarkable. There is extensive calcification of the abdominal aorta and origins of the celiac and superior mesent jun and renal arteries. No abdominal aortic aneurysm. No intraperitoneal or retroperitoneal or pelvi c mass lesion or significantly enlarged lymph nodes are noted. Prominent rectosigmoid fecal impaction measuring up to 6.2 x 6.3 cm. There multiple diverticula of the sigmoid colon; no CT evidence of diverticulitis. There is retained barium in the colon, creating some artifact. Small fat-containing umbilical hernia. Probable old left rib fracture deformities. Diffuse idiopathic skeletal hyperostosis of the thoracic spine. Diffuse osteopenia. There is degenera tive change of the apophyseal joints with associated mild grade 1 anterolisthesis at L3-4 and L4-5. Bilateral hip osteoarthritis. IMPRESSION: Prominent bilateral lower lobe consolidation with air , Right greater than left Cardiomegaly Bilateral small pleural effusions 1.3 x 2.4 cm fatty lesion in the body of the pancreas, likely benign Probable bilateral chronic pyelonephritis Diverticulosis of the sigmoid colon; no CT evidence of diverticulitis Reviewed, dictated and finalized at [facility]. Reviewed, dictated and finalized at location [facility]. DIVER
--- NOTE | ~2021-05-10 | XR_ITS ---
EXAMINATION: XR chest 1V portable DATE: 05/15/2021 05:43 INDICATION: Increased fluid status TECHNIQUE: frontal view of the chest was obtained. COMPARISON: Chest radiograph dated 04/22/2021 FINDINGS: Airspace opacities throughout the right lung relatively sparing the apex and in the left mid to lower lung zone. Pulmonary vascular congestion and increasing superimposed increased interstitial pattern. Blunting at the costophrenic angles consistent with small left and [id number] right pleural e ffusions. No pneumothorax. Cardiomegaly. Severe thoracic spondylosis. IMPRESSION: 1. Pulmonary vascular congestion and increasing mild pulmonary edema. 2. Small to moderate right and small left pleural effusion with associated atelectasis and/or pneumon ia. 3. Cardiomegaly. Reviewed, dictated and finalized at location [facility]. IMPRESSION: 1. Pulmonary vascular congestion and increasing mild pulmonary edema. 2. Small to moderate right and small left pleural effusion with associated atel ectasis and/or pneumonia. 3. Cardiomegaly.
--- NOTE | ~2021-05-10 | US_ITS ---
EXAMINATION: US renal BI DATE: 05/11/2021 11:18 INDICATION: Acute kidney injury TECHNIQUE: Multiple grayscale and Doppler ultrasound images of the kidneys were obtained. COMPARISON: None. FINDINGS: The right kidney measures 8.3 x 4.9 x 4.9 cm. The left kidney measures 10.8 x 6.2 x 4.7 cm. The kidneys demonstrate normal parenchymal echogenicity. There is no hydronephrosis. The bladder is normal. IMPRESSION: 1. Mild atrophy of the kidneys. Reviewed, dictated and finalized at location B.
--- NOTE | ~2021-05-10 | US_ITS ---
EXAMINATION: US venous doppler [facility] DATE: 05/11/2021 11:17 INDICATION: Bilateral lower limb pain and swelling TECHNIQUE: Grayscale ultrasound images without and with compression and Doppler ultrasound images of the bilateral lower extremity veins were obtained. COMPARISON: None. FINDINGS: The visualized portions of right common femoral vein, profunda (deep) femoral vein, femoral vein, pop liteal vein, posterior tibial veins, peroneal veins, gastrocnemius vein and greater saphenous vein ou tflow are patent. 4.5 x 2.3 x 2.8 cm Alcocer cyst at the right popliteal fossa. The visualized portions of left common femoral vein, profunda femoral vein, femoral vein, popliteal v ein, posterior tibial veins, peroneal veins, gastrocnemius vein and greater saphenous vein outflow ar e patent. 6.4 x 2.6 x 1.4 Alcocer's cyst at the left popliteal fossa. IMPRESSION: 1. No deep venous thrombosis in either lower limb. 2. Bilateral Alcocer's cysts. Reviewed, dictated and finalized at location A.
--- NOTE | ~2021-05-10 | XR_ITS ---
EXAMINATION: XR barium swallow modified EXAM DATE: 05/13/2021 13:10 INDICATION: Dysphagia. TECHNIQUE: Modified barium esophagram was performed by speech pathologist with radiologist Dr. Mau Davis present to administered fluoroscopy. Speech pathologist administered barium in varying consis tencies as per speech pathologist documentation. This was recorded on tape. There was total fluorosc opic time of 2.9 minutes. The DAP for this procedure was 3.5 Gycm2. A total of 4 images sent to PAC S from the exam. FINDINGS: Oral stage: Delayed trigger. Premature spillage. Pharyngeal phase: Reduced laryngeal elevation. Sinus residual. Laryngeal penetration: Demonstrated. Aspiration: Not identified. Laryngeal sensitivity: Absent. IMPRESSION: Penetration demonstrated, absent laryngeal sensitivity; Please refer to speech pathologi st findings and specific feeding recommendations. Reviewed, dictated and finalized at location A. IMPRESSION: Penetration demonstrated, absent laryngeal sensitivity; Please ref er to speech pathologist findings and specific feeding recommendations.
[2021-05-10 16:09] VITALS: BMI 39.4
--- NOTE | 2021-05-10 16:14 | ADMGEN ---
This patient, Neris Fabian, was admitted to Medical Room 345-. Patient/family oriented to hospital policies and general routines including ID bracelet, bed and alarms, visiting hours, pain management, procedures, bathroom and other care routines, personal items, smoking policy, room service/diet, and visiting hours. Information on how to activate the Rapid Response Team has been discussed. Patient/Family are encouraged to report perceived risks to care and to ask questions if they do not understand what they are told or what they should do.
[2021-05-10 16:30] VITALS: O2SAT 94
--- NOTE | 2021-05-10 18:00 | PM.IMHP ---
H&P: HPI History of Present Illness Date/Time: 05/10/21 17:00 Chief Complaint: Altered mental status. Narrative: This is a 75-year-old female with history of hypertension, hypothyroidism, diabetes, chronic kidney disease, and anemia who is being directly admitted to the telemetry floor from the medical floor at the [facility] for further treatment and evaluation of altered mental status among others. Given her current clinical condition she is not able to provide a history and as such majority of the following is obtained via a review of her electronic medical records as well as discussions with staff and the patient's . She presented to the emergency department at the [facility] on 05/08/2021 with a suspected stroke (decreased responsiveness, left-sided weakness) and on arrival her NIHSS was 27 and 17 on reassessment. Her case was discussed with the stroke team at [facility] but due to her declared DNR status they did not feel transfer was appropriate and her agreed. It has been documented that she was admitted to the medical floor at their hospital with discussions for hospice care. 2 days prior to arrival to the emergency department, her Byron noticed that she was acting strangely with limited interaction, fatigue, and incontinence. Apparently she has had similar episodes in the past where she will become essentially nonverbal and unresponsive for a couple of days before returning back to her normal self, typically when she is under lot of stress. Interestingly brain CT, angiography, and MRI showed no evidence of stroke. A CT of the chest showed a probable right lower lobe segmental pulmonary emboli with right upper lobe posterior segmental pneumonia and small to moderate pleural effusions. She was started on IV fluids and antibiotics however she has not improved much cognitively and thus she is being transferred here for consultation with Neurology. At the time my evaluation she half opens her eyes to name and did nod her head yes when I asked if she knew where she was. She did not really follow any other commands nor did she answer any questions. Review of Systems Review of Systems: Unable to assess given current clinical condition as detailed above. [facility] Past Medical History Medical History (Updated 05/10/21 @ 20:45 by Payton Davis PA-C) Anxiety Arthritis B12 deficiency Basal cell carcinoma of nose Cancer of left breast Status post lumpectomy and radiation. Chronic kidney disease, stage 3 Chronic knee pain Diabetes mellitus Dyslipidemia Gastroesophageal reflux disease Hypertension Hypothyroidism Overactive bladder Surgical History Surgical History (Updated 05/10/21 @ 20:35 by Payton Davis PA-C) History of basal cell carcinoma excision History of lumpectomy of left breast Family History Family History Other Unknown family medical history Social History Social History (Updated 05/10/21 @ 20:36 by Payton Davis PA-C) Social History: Surrogate decision maker: Byron Fabian, . Code status: Smoking packs per day: 0.5 Smoking cigarettes per day: 10.0 Years smoked: 10 Smoking pack-years: 5.00 Smoking status: Former smoker Second hand tobacco smoke exposure: No Alcohol intake: unknown Substance use: unknown Additional living arrangements comments: The patient lives with her in [place]. Additional occupation/education comments: Retired. Meds Home Medications and Allergies Home Medications Medication Instructions Recorded Confirmed Type Women's Multivitamin 1 tablet PO DAILY 06/01/19 05/10/21 History gabapentin See Rx Instructions .ROUTE .COMPLEX 06/01/19 05/10/21 History glimepiride 4 mg PO BID 06/01/19 05/10/21 History glucosamine-chondroitin [Osteo 2 tablet PO DAILY 06/01/19 05/10/21 History Bi-Flex] levothyroxine 125 mcg PO DAILY
[2021-05-10 18:44] LABS: Alveolar/Arterial O2 Gradient 11.3 mmHg; Base Excess ABG -2.3 mEq/l (+/-2.0); Carboxyhemoglobin 0.2 % THb (0-2.0); Fractional Inspired Oxygen 21 %; HCO3 ABG 23.3 mEq/l (22.0-26.0); Methemoglobin ABG 0.2 %THb (0-1.5); Oxygen Content ABG 14.8 %vol (16.0-22.0); Oxyhemoglobin 95.3 % THb (90.0-100.0); PCO2 ABG 43.7 mmHg (35.0-45.0); PO2 ABG 86.1 mmHg (80.0-100.0); Reduced Hemoglobin 4.3 %THb (0-5.0); pH ABG 7.345 (7.350-7.450)
[2021-05-10 18:45] LABS: Device ROOM AIR; Modified Allen's Test Pass; Site Drawn RIGHT RADIAL
[2021-05-10 19:32] LABS: Basophils Absolute Auto 0.1 K/mm3 (0.0-0.1); Basophils Percent Auto 0.5 % (0.2-1.2); Eosinophils Absolute Auto 0.4 K/mm3 (0-0.3); Hematocrit 32.8 % (37.0-47.0); Hemoglobin 9.9 g/dL (12.0-15.0); Immature Granulocyte Absolute 0.03 K/mm3 (0.00-0.031); Immature Granulocyte Percent A 0.3 % (0-0.5); Lymphocytes Absolute Auto 0.85 K/mm3 (0.9-3.2); Lymphocytes Percent Auto 8.8 % (18.3-44.2); Mean Corpuscular HGB Conc 30.2 g/dl (32-36); Mean Corpuscular Hemoglobin 29.3 pg (26-34); Mean Platelet Volume 10.3 fl (7.4-10.4); Monocytes Absolute Auto 1.2 K/mm3 (0.1-0.6); Monocytes Percent Auto 12.5 % (2.6-8.5); Neutrophils Absolute Auto 7.1 K/mm3 (1.3-6.7); Neutrophils Percent Auto 73.9 % (45.5-73.1); Platelet Count Result 198 k/mm3 (150-375); Red Blood Count 3.38 M/mm3 (4.2-5.4); Red Cell Distribution Width 14.7 % (11.5-14.5); White Blood Count 9.7 K/mm3 (4.5-10.0)
[2021-05-10 19:43] LABS: Alanine Aminotransferase 17 U/L (4-35); Albumin Level 3.2 g/dL (3.5-5.1); Alkaline Phosphatase 61 U/L (38-126); Anion Gap 8 mmol/L (8-16); Aspartate Amino Transferase 23 U/L (14-36); Bilirubin,Total 0.5 mg/dL (0.2-1.3); Blood Urea Nitrogen 41 mg/dL (7-17); CRP 1.4 mg/dL (<1.0); Calcium 8.6 mg/dL (8.4-10.2); Carbon Dioxide 24 mmol/L (22-30); Chloride 105 mmol/L (98-107); Estimated CRCL calculation 21 ml/min; Estimated Glomerular Filt Rate 18; Glucose 172 mg/dL (65-110); Magnesium 1.6 mg/dL (1.6-2.3); Potassium 4.7 mmol/L (3.4-5.0); Sodium 137 mmol/L (137-145)
[2021-05-10 19:44] LABS: Iron 25 ug/dL (37-170)
[2021-05-10 19:45] LABS: Hemoglobin A1C 10.4 % (<5.7)
[2021-05-10 19:48] LABS: Add Urine Microscopic? YES; Appearance Urine Cloudy (Clear); Bacteria Urine 1+ /hpf; Bilirubin Urine Negative (Negative); Blood Urine 3+ (Negative); Color Urine Yellow (Yellow); Glucose Urine UA Negative (Negative); Ketones Urine Negative (Negative); Leukocyte Esterase Ur Negative LEU/UL (Negative); Mucus Urine Rare /lpf; Nitrate Urine Negative (Negative); Protein Urine 1+ mg/dL (Negative); RBC Urine >75 /hpf (0-2); Specific Grav Ur 1.027 (1.001-1.035); Squamous Epithelial Cell Urine Rare /hpf (Few); Urobilinogen Urine Negative mg/dL (<2.0)
[2021-05-10 19:50] LABS: NT Pro B Type Natriuretic Pept 10500 pg/mL (5-100)
[2021-05-10 19:54] LABS: Percent Iron Saturation 8 % (20-50)
[2021-05-10 20:00] VITALS: PULSE 120; O2SAT 94
[2021-05-10 20:03] LABS: Ammonia 13 umol/L (9-30)
[2021-05-10 20:17] LABS: Procalcitonin 5.3 ng/mL
[2021-05-10 20:20] LABS: Glucose Point of Care 180 mg/dl (65-105)
[2021-05-10 20:47] LABS: Folic Acid > 20.0 ng/mL (2.76->20); Vitamin B12 > 1000.0 pg/mL (239-931)
[2021-05-10] MEDS: ENOXAPARIN 120 MG/0.8 ML SYRINGE 110 MG SUB-Q (21:53)
[2021-05-10 22:00] VITALS: BP 125/97; PULSE 94; RESP 22; TEMP 37.6; O2SAT 94
[2021-05-11] VITALS (9 sets, daily range): BP systolic 115–141; BP diastolic 54–73; PULSE 93–120; RESP 18–22; TEMP 36.6–37; O2SAT 95–98
[2021-05-11] MEDS: LEVOTHYROXINE SODIUM INJ 100 MCG/5 ML VIAL 62.5 MCG IV PUSH (05:42)
[2021-05-11 08:08] LABS: Glucose Point of Care 260 mg/dl (65-105)
--- NOTE | 2021-05-11 10:02 | WPDNEUROLOGY ---
Neurology EEG Report General Information Date of Study: 05/11/21 TEST eeg DIAGNOSIS Change in the mental status CONDITION OF RECORDING awake and confused EEG NUMBER [id number] CLINICAL HISTORY EEG DESCRIPTION whole record consists of diffuse very poorly organized low to medium voltage 5 to 7 hertz per 2nd theta and continual muscle artifacts and movement artifacts .obviously hyperventilation not done, photic stimulation not done. IMPRESSION No significant abnormalities noted in this tracing which is compromised by the continual muscle artifacts and movement artifacts.
[2021-05-11] MEDS: PERFLUTREN LIPID MICROSPHERES 1.5 ML VIAL DILUTED TO 10 ML TOTAL VOLUME IV PUSH (12:00)
[2021-05-11 12:09] LABS: Glucose Point of Care 273 mg/dl (65-105)
--- NOTE | 2021-05-11 14:00 | PM.IMPN ---
Progress Note: A&P Assessment and Plan (1) Acute metabolic encephalopathy: Code(s): G93.41 - Metabolic encephalopathy Status: Acute Assessment and Plan: Became progressively more confused over the last 5 days, now minimally responsive and obtunded Could be from UTI, PNA, or worsening renal function will remain NPO for now as she is at risk for aspiration. Brain CT, CTA, and MRI were all unremarkable Ammonia 13, B12 >1000, and TSH 2.850 neurologic checks q.4 hours. Neurology has been consulted for their opinion. EEG ordered for a.m. (2) Pneumonia: Code(s): J18.9 - Pneumonia, unspecified organism Status: Acute Assessment and Plan: Chest x-ray today shows worsening right upper lobe pneumonia. Could be pulmonary edema started on azithromycin and ceftriaxone. Sputum to be attempted for culture. COVID-19 is felt to be less likely. Continue aspiration precautions. (3) Congestive heart failure: Code(s): I50.9 - Heart failure, unspecified Status: Acute Assessment and Plan: Imaging showed some pleural effusions worse on recent chest x-ray BNP has increased 30897 IV Lasix on hold for now due to renal failure Echocardiogram ejection fraction was 60 to 65% with diastolic dysfunction Strict I/O Urinary catheter Probably acute exacerbation of diastolic heart failure (4) Abnormal urinalysis: Code(s): R82.90 - Unspecified abnormal findings in urine Status: Acute Assessment and Plan: Urine has been sent for culture. UA showed cloudy yellow urine with 3+ blood, WBC 10-15, Ur. Bacteria 1+ On ceftriaxone currently for PNA (5) Pulmonary embolism: Code(s): I26.99 - Other pulmonary embolism without acute cor pulmonale Status: Acute Assessment and Plan: Continue therapeutic Lovenox given NPO status. Echocardiogram ejection fraction was 60 to 65% with diastolic dysfunction lower extremity venous Doppler ultrasounds Show no DVT in bilateral lower legs CTA from the shows PE She is Afib in the 100s, BP stable (6) Acute on chronic kidney failure: Code(s): N17.9 - Acute kidney failure, unspecified; N18.9 - Chronic kidney disease, unspecified Status: Acute Assessment and Plan: Secondary to over diuresis and poor oral intake. IV fluids on hold at this time given worsening pulmonary edema and pleural effusions. Avoid nephrotoxic agents. Urinary catheter Monitor I/O closely. Renal ultrasound unremarkable Could be from UTI (7) Type 2 diabetes mellitus with hyperglycemia: Code(s): E11.65 - Type 2 diabetes mellitus with hyperglycemia Status: Acute Assessment and Plan: Poorly controlled hemoglobin A1c greater than 10% continue with sliding scale insulin Consider initiation of basal insulin Trend glucose (8) Atrial fibrillation, new onset: Code(s): I48.91 - Unspecified atrial fibrillation Status: Acute Assessment and Plan: Rate is controlled Continue therapeutic Lovenox for now Will need to transition to oral anticoagulation when more awake. Echocardiogram ejection fraction was 60 to 65% with diastolic dysfunction TSH 2.850 (9) Hypothyroidism: Code(s): E03.9 - Hypothyroidism, unspecified Status: Acute Assessment and Plan: Transition levothyroxine to IV form while NPO. TSH 2.850 (10) Hypertension: Code(s): I10 - Essential (primary) hypertension Status: Acute Assessment and Plan: BP 141/73 Blood pressures were reviewed and they have been stable. blood pressures were soft upon admission Antihypertensives currently on hold. Trend BP Adjust medication as needed Time Spent With Patient Time with patient: Greater than 35 minutes Subjective Date/time seen: 05/11/21 14:00 Interval history: Date/Time: 05/10/21 17:00 Narrative: Th
--- NOTE | 2021-05-11 14:00 | P.PNIM_ITS ---
Progress Note: A&P Assessment and Plan (1) Acute metabolic encephalopathy: Code(s): G93.41 - Metabolic encephalopathy Status: Acute Assessment and Plan: * Became progressively more confused over the last 5 days, now minimally responsive and obtunded * Could be from UTI, PNA, or worsening renal function * will remain NPO for now as she is at risk for aspiration. * Brain CT, CTA, and MRI were all unremarkable * Ammonia 13, B12 >1000, and TSH 2.850 * neurologic checks q.4 hours. * Neurology has been consulted for their opinion. * EEG ordered for a.m. (2) Pneumonia: Code(s): J18.9 - Pneumonia, unspecified organism Status: Acute Assessment and Plan: * Chest x-ray today shows worsening right upper lobe pneumonia. * Could be pulmonary edema * started on azithromycin and ceftriaxone. * Sputum to be attempted for culture. * COVID-19 is felt to be less likely. * Continue aspiration precautions. (3) Congestive heart failure: Code(s): I50.9 - Heart failure, unspecified Status: Acute Assessment and Plan: * Imaging showed some pleural effusions worse on recent chest x-ray * BNP has increased 80011 * IV Lasix on hold for now due to renal failure * Echocardiogram ejection fraction was 60 to 65% with diastolic dysfunction * Strict I/O * Urinary catheter * Probably acute exacerbation of diastolic heart failure (4) Abnormal urinalysis: Code(s): R82.90 - Unspecified abnormal findings in urine Status: Acute Assessment and Plan: * Urine has been sent for culture. * UA showed cloudy yellow urine with 3+ blood, WBC 10-15, Ur. Bacteria 1+ * On ceftriaxone currently for PNA (5) Pulmonary embolism: Code(s): I26.99 - Other pulmonary embolism without acute cor pulmonale Status: Acute Assessment and Plan: * Continue therapeutic Lovenox given NPO status. * Echocardiogram ejection fraction was 60 to 65% with diastolic dysfunction * lower extremity venous Doppler ultrasounds Show no DVT in bilateral lower legs * CTA from the shows PE * She is Afib in the 100s, BP stable (6) Acute on chronic kidney failure: Code(s): N17.9 - Acute kidney failure, unspecified; N18.9 - Chronic kidney disease, unspecified Status: Acute Assessment and Plan: * Secondary to over diuresis and poor oral intake. * IV fluids on hold at this time given worsening pulmonary edema and pleural effusions. * Avoid nephrotoxic agents. * Urinary catheter * Monitor I/O closely. * Renal ultrasound unremarkable * Could be from UTI (7) Type 2 diabetes mellitus with hyperglycemia: Code(s): E11.65 - Type 2 diabetes mellitus with hyperglycemia Status: Acute Assessment and Plan: * Poorly controlled * hemoglobin A1c greater than 10% * continue with sliding scale insulin * Consider initiation of basal insulin * Trend glucose (8) Atrial fibrillation, new onset: Code(s): I48.91 - Unspecified atrial fibrillation Status: Acute Assessment and Plan: * Rate is controlled * Continue therapeutic Lovenox for now * Will need to transition to oral anticoagulation when more awake. * Echocardiogram ejection fraction was 60 to 65% with diastolic dysfunction * TSH 2.850 (9) Hypothyroidism: Code(s): E03.9 - Hypothyroidism, unspecified Status: Acute Assessment and Plan: * Transition levothyroxine to IV form while NPO. * TSH 2
--- NOTE | 2021-05-11 15:48 | WPDNEURCNPN ---
Assessment and Plan Additional Plan considering the history, the general status, and also normal EEG she needs to treatment for the medical problems but neurologically there is no further in intervention necessary if any question arises please do not hesitate to contact Consult date: 05/11/21 HPI: Neris Fabian is a 75 year old female has been admitted to the hospital for the complaints of change in the mental status in addition to the ongoing history of 1. Hypertension 2. Hypothyroidism 3. Diabetes mellitus 4 chronic renal disease and 5. Anemia patient was reportedly admitted to telemetry floor from the medical floor at the [facility] for the further treatment evaluation of change in the mental status she was unable to provide any further history to the initial physician information was obtained from the electronic records she presented to emergency department the [facility] on May 08, 2021 with suspected stroke that is decreased responsiveness, and left-sided weakness with NIH SS was 27 17 on reassessment case was discussed with the [facility] stroke team but due to her declared DNR status the a transfer was not done and agreed she was admitted to the hospital for the hospice care 2 days prior to this transfer or arrival to the emergency room she was acting strangely with limited interaction incontinence of urine and generalized fatigue and she had been unresponsive for couple of days before returning back to her normal self before a CT scan of the chest documented right lower lobe segmental pulmonary emboli with right upper lobe posterior segmental pneumonia and small to moderate pleural effusion he was started on IV fluids and antibiotics but she continued to have the impairment of cognition and was transferred here for further care, past history is consistent with the history of arthritis, B12 deficiency, cancer of the left breast for which she has undergone lumpectomy, his stage III chronic renal disease, is mellitus, GERD, hypertension, and neurogenic bladder, she has history of smoking half a pack per day for 10 years but at present she is a former smoker and pertinent investigations include the ultrasound of the kidneys bilaterally documenting only mild atrophy of the kidneys, no DVT of both lower , negative MRI of the brain the study is somewhat limited CTA of the chest documenting right lower lobe segmental pulmonary emboli with no clot burden right upper lobe posterior segmental pneumonia and small to moderate pleural effusion along with cystic pancreatic mass and adenoma of the left adrenal gland. EEG revealed no evidence of paroxysmal activity Review of Systems Review of Systems: All systems reviewed & are unremarkable except as noted in HPI and below PMFSH Past Medical History Medical History Anxiety Arthritis B12 deficiency Basal cell carcinoma of nose Cancer of left breast Status post lumpectomy and radiation. Chronic kidney disease, stage 3 Chronic knee pain Diabetes mellitus Dyslipidemia Gastroesophageal reflux disease Hypertension Hypothyroidism Overactive bladder Surgical History Surgical History History of basal cell carcinoma excision History of lumpectomy of left breast Family History Family History Other Unknown family medical history Social History Social History Social History: Surrogate decision maker: Byron Fabian, . Code status: Smoking packs per day: 0.5 Smoking cigarettes per day: 10.0 Years smoked: 10 Smoking pack-years: 5.00 Smoking status: Former smoker Second hand tobacco smoke exposure: No Alcohol intake: unknown Substance use: unknown Additional living arrangements comments: The patient lives with her in [place]. Addit
[2021-05-11 16:34] LABS: Glucose Point of Care 343 mg/dl (65-105)
[2021-05-11] MEDS: FUROSEMIDE INJ 40 MG/4 ML VIAL IV PUSH (16:53)
[2021-05-11] MEDS: INSULIN ASPART (*BKC) 100 UNITS/ML SUB-Q (17:15)
--- NOTE | 2021-05-11 18:04 | ECHO_ITS ---
Patient Info Name: Neris Fabian Age: 75 years : 1945 Gender: Female Ht: 65 in Wt: 237 lbs BSA: 2.27 m2 HR: 97 bpm BP: 127 / 54 mmHg Technical Quality: Poor Exam Date: 05/11/2021 11:21 AM Exam Location: [facility] Pulmonary Exam Room: 345 Patient Status: Inpatient Admit Date: 05/10/2021 Staff Ordering Physician: Payton Davis PA-C Atg Java Developer: Trinity Ramos RDCS Attending Provider: Leroy Harvey MD Referring Physician: Ryan KAM; Exam Type: CA echo dop color flow w con Study Info Indications - aftrial fibrillation htn Complete two-dimensional, color flow and Doppler transthoracic echocardiogram is performed with contrast to opacify the left ventricle and to improve the deliniation of the left ventricle endocardial borders. Contrast/Agitated Saline Contrast/Ag. Saline: Definity Amount: 1.00 ml Administered By: Rocael Boyd RN Existing IV Access: Yes IV Access Condition: patent with no signs of infiltration New IV Access: Right Reason for Poor Study: poor echocardiographic windows Summary 1. Left ventricular chamber dimension is normal. 2. Definity contrast administered improved wall motion interpretation. 3. Left ventricular systolic function is normal, estimated at 60-65%. 4. There is mildly increased left ventricular wall thickness. 5. The left ventricular diastolic function is abnormal. 6. E/e' 20 is elevated. 7. Left atrial chamber dimension is severely enlarged. 8. Right atrial chamber dimension is moderately enlarged. 9. There is severe aortic valve sclerosis. 10. There is critical aortic valve stenosis with a peak velocity of 463.69 cm/s, mean gradient of 50 mmHg, and aortic valve area of 0.62 cm2. 11. The mitral valve has moderately calcified leaflets and severely calcified annulus. 12. There is moderate tricuspid valve regurgitation. 13. Severe pulmonary hypertension, estimated pulmonary arterial systolic pressure is 60 mmHg. Left Ventricle E/e' 20 is elevated. Definity contrast administered improved wall motion interpretation. Left ventricular chamber dimension is normal. Left ventricular systolic function is normal, estimated at 60-65%. There is mildly increased left ventricular wall thickness. The left ventricular diastolic function is abnormal. Right Ventricle Right ventricular chamber dimension is normal. Right ventricular systolic function is normal. Left Atria Left atrial chamber dimension is severely enlarged. Right Atria Right atrial chamber dimension is moderately enlarged. Aortic Valve The aortic valve is trileaflet. There is severe aortic valve sclerosis. There is critical aortic valve stenosis with a peak velocity of 463.69 cm/s, mean gradient of 50 mmHg, and aortic valve area of 0.62 cm2. There is no aortic valve regurgitation. Pulmonic Valve There is no pulmonic regurgitation. Mitral Valve The mitral valve has moderately calcified leaflets and severely calcified annulus. There is no mitral valve stenosis. There is no mitral valve regurgitation. Tricuspid Valve There is moderate tricuspid valve regurgitation. Severe pulmonary hypertension, estimated pulmonary arterial systolic pressure is 60 mmHg. Pericardium/Pleural There is no pericardial effusion. Inferior Vena Cava Normal inferior vena cava with >50% collapse upon inspiration consistent with normal right atrial pressure, 5 mmHg. Aorta The aortic
[2021-05-11 19:50] LABS: Glucose Point of Care 250 mg/dl (65-105)
[2021-05-11] MEDS: MICONAZOLE NITRATE 2% CREAM 30 GM TUBE 1 APPLIC TOPICAL (20:16)
[2021-05-11] MEDS: ENOXAPARIN 120 MG/0.8 ML SYRINGE 110 MG SUB-Q (20:17)
[2021-05-12] VITALS (11 sets, daily range): BP systolic 112–136; BP diastolic 53–85; PULSE 83–102; RESP 16–21; TEMP 36.4–36.6; O2SAT 85–100
[2021-05-12] MEDS: LEVOTHYROXINE SODIUM INJ 100 MCG/5 ML VIAL 62.5 MCG IV PUSH (05:42)
[2021-05-12 05:48] LABS: Basophils Percent Auto 0.4 % (0.2-1.2); Eosinophils Absolute Auto 0.3 K/mm3 (0-0.3); Eosinophils Percent Auto 4.5 % (0-4.4); Hematocrit 28.8 % (37.0-47.0); Hemoglobin 9.3 g/dL (12.0-15.0); Immature Granulocyte Absolute 0.06 K/mm3 (0.00-0.031); Immature Granulocyte Percent A 0.8 % (0-0.5); Lymphocytes Absolute Auto 0.77 K/mm3 (0.9-3.2); Lymphocytes Percent Auto 10.2 % (18.3-44.2); Mean Corpuscular HGB Conc 32.3 g/dl (32-36); Mean Corpuscular Hemoglobin 30.2 pg (26-34); Mean Corpuscular Volume 93.5 fl (80-100); Mean Platelet Volume 10.4 fl (7.4-10.4); Monocytes Absolute Auto 0.9 K/mm3 (0.1-0.6); Monocytes Percent Auto 11.9 % (2.6-8.5); Neutrophils Absolute Auto 5.5 K/mm3 (1.3-6.7); Neutrophils Percent Auto 72.2 % (45.5-73.1); Platelet Count Result 186 k/mm3 (150-375); Red Blood Count 3.08 M/mm3 (4.2-5.4); Red Cell Distribution Width 14.5 % (11.5-14.5); White Blood Count 7.6 K/mm3 (4.5-10.0)
[2021-05-12 06:32] LABS: Alanine Aminotransferase 19 U/L (4-35); Albumin Level 2.9 g/dL (3.5-5.1); Alkaline Phosphatase 67 U/L (38-126); Anion Gap 13 mmol/L (8-16); Aspartate Amino Transferase 28 U/L (14-36); Bilirubin,Total 0.6 mg/dL (0.2-1.3); Blood Urea Nitrogen 57 mg/dL (7-17); Calcium 8.2 mg/dL (8.4-10.2); Carbon Dioxide 21 mmol/L (22-30); Chloride 104 mmol/L (98-107); Estimated CRCL calculation 13 ml/min; Estimated Glomerular Filt Rate 10; Glucose 247 mg/dL (65-110); Magnesium 1.9 mg/dL (1.6-2.3); Potassium 4.5 mmol/L (3.4-5.0); Sodium 138 mmol/L (137-145)
[2021-05-12 07:53] LABS: Glucose Point of Care 262 mg/dl (65-105)
[2021-05-12] MEDS: INSULIN ASPART (*BKC) 100 UNITS/ML SUB-Q ×3 (08:02→17:52)
[2021-05-12] MEDS: MICONAZOLE NITRATE 2% CREAM 30 GM TUBE 1 APPLIC TOPICAL ×2 (08:03→21:46)
[2021-05-12] MEDS: SODIUM CHLORIDE 0.45% 1,000 ML 75 ML IV CONT ×2 (10:03→22:11)
--- NOTE | 2021-05-12 11:52 | P.PNIM_ITS ---
Progress Note: A&P Assessment and Plan (1) Acute metabolic encephalopathy: Code(s): G93.41 - Metabolic encephalopathy Status: Acute Assessment and Plan: * Seems to be getting better. She was much more interactive * Became progressively more confused over the last 5 days, now minimally responsive and obtunded * Could be from PNA, or worsening renal function * Urine culture has no growth * will remain NPO for now as she is at risk for aspiration, speech consulted for swallow study * Brain CT, CTA, and MRI were all unremarkable * Ammonia 13, B12 >1000, and TSH 2.850 (05/10/21) * neurologic checks q.4 hours. * Neurology has been consulted but stated that there is no further recommendations (2) Pneumonia: Code(s): J18.9 - Pneumonia, unspecified organism Status: Acute Assessment and Plan: * Chest x-ray shows worsening right upper lobe pneumonia. (05/10/21) * Could be pulmonary edema, coarse crackles in bilateral lungs * started on azithromycin and ceftriaxone. * Sputum to be attempted for culture. * COVID-19 is felt to be less likely. * Continue aspiration precautions. (3) Congestive heart failure: Code(s): I50.9 - Heart failure, unspecified Status: Acute Assessment and Plan: * Imaging showed some pleural effusions worse on recent chest x-ray * BNP has increased 92462 (05/10/21) * IV Lasix on hold for now due to renal failure * Echocardiogram ejection fraction was 60 to 65% with diastolic dysfunction * Strict I/O * Urinary catheter * Probably acute exacerbation of diastolic heart failure (4) Abnormal urinalysis: Code(s): R82.90 - Unspecified abnormal findings in urine Status: Acute Assessment and Plan: * Culture shows no growth * UA showed cloudy yellow urine with 3+ blood, WBC 10-15, Ur. Bacteria 1+ * On ceftriaxone currently for PNA (5) Pulmonary embolism: Code(s): I26.99 - Other pulmonary embolism without acute cor pulmonale Status: Acute Assessment and Plan: * Continue therapeutic Lovenox given NPO status. * Echocardiogram ejection fraction was 60 to 65% with diastolic dysfunction * lower extremity venous Doppler ultrasounds Show no DVT in bilateral lower legs * CTA from the shows PE * Telemonitor showed SR at this time continue to monitor (6) Acute on chronic kidney failure: Code(s): N17.9 - Acute kidney failure, unspecified; N18.9 - Chronic kidney disease, unspecified Status: Acute Assessment and Plan: * BUN/Cr getting worse 57/4.30 * Secondary to over diuresis and poor oral intake. * IV fluids on hold at this time given worsening pulmonary edema and pleural effusions. * Avoid nephrotoxic agents. * Urinary catheter * Monitor I/O closely. * Renal ultrasound unremarkable * Could be from UTI * Nephrology consult thank you * CPK is slightly elevated at 235 (7) Type 2 diabetes mellitus with hyperglycemia: Code(s): E11.65 - Type 2 diabetes mellitus with hyperglycemia Status: Acute Assessment and Plan: * Poorly controlled * hemoglobin A1c greater than 10% * continue with sliding scale insulin * Consider initiation of basal insulin * Trend glucose (8) Atrial fibrillation, new onset: Code(s): I48.91 - Unspecified atrial fibrillation Status: Acute Assessment and Plan: * Rate is controlled * Continue therapeutic Lovenox for now * Will need to transition to oral anticoagulation when more awake.
--- NOTE | 2021-05-12 11:52 | PM.IMPN ---
Progress Note: A&P Assessment and Plan (1) Acute metabolic encephalopathy: Code(s): G93.41 - Metabolic encephalopathy Status: Acute Assessment and Plan: Seems to be getting better. She was much more interactive Became progressively more confused over the last 5 days, now minimally responsive and obtunded Could be from PNA, or worsening renal function Urine culture has no growth will remain NPO for now as she is at risk for aspiration, speech consulted for swallow study Brain CT, CTA, and MRI were all unremarkable Ammonia 13, B12 >1000, and TSH 2.850 (05/10/21) neurologic checks q.4 hours. Neurology has been consulted but stated that there is no further recommendations (2) Pneumonia: Code(s): J18.9 - Pneumonia, unspecified organism Status: Acute Assessment and Plan: Chest x-ray shows worsening right upper lobe pneumonia. (05/10/21) Could be pulmonary edema, coarse crackles in bilateral lungs started on azithromycin and ceftriaxone. Sputum to be attempted for culture. COVID-19 is felt to be less likely. Continue aspiration precautions. (3) Congestive heart failure: Code(s): I50.9 - Heart failure, unspecified Status: Acute Assessment and Plan: Imaging showed some pleural effusions worse on recent chest x-ray BNP has increased 28763 (05/10/21) IV Lasix on hold for now due to renal failure Echocardiogram ejection fraction was 60 to 65% with diastolic dysfunction Strict I/O Urinary catheter Probably acute exacerbation of diastolic heart failure (4) Abnormal urinalysis: Code(s): R82.90 - Unspecified abnormal findings in urine Status: Acute Assessment and Plan: Culture shows no growth UA showed cloudy yellow urine with 3+ blood, WBC 10-15, Ur. Bacteria 1+ On ceftriaxone currently for PNA (5) Pulmonary embolism: Code(s): I26.99 - Other pulmonary embolism without acute cor pulmonale Status: Acute Assessment and Plan: Continue therapeutic Lovenox given NPO status. Echocardiogram ejection fraction was 60 to 65% with diastolic dysfunction lower extremity venous Doppler ultrasounds Show no DVT in bilateral lower legs CTA from the shows PE Telemonitor showed SR at this time continue to monitor (6) Acute on chronic kidney failure: Code(s): N17.9 - Acute kidney failure, unspecified; N18.9 - Chronic kidney disease, unspecified Status: Acute Assessment and Plan: BUN/Cr getting worse 57/4.30 Secondary to over diuresis and poor oral intake. IV fluids on hold at this time given worsening pulmonary edema and pleural effusions. Avoid nephrotoxic agents. Urinary catheter Monitor I/O closely. Renal ultrasound unremarkable Could be from UTI Nephrology consult thank you CPK is slightly elevated at 235 (7) Type 2 diabetes mellitus with hyperglycemia: Code(s): E11.65 - Type 2 diabetes mellitus with hyperglycemia Status: Acute Assessment and Plan: Poorly controlled hemoglobin A1c greater than 10% continue with sliding scale insulin Consider initiation of basal insulin Trend glucose (8) Atrial fibrillation, new onset: Code(s): I48.91 - Unspecified atrial fibrillation Status: Acute Assessment and Plan: Rate is controlled Continue therapeutic Lovenox for now Will need to transition to oral anticoagulation when more awake. Echocardiogram ejection fraction was 60 to 65% with diastolic dysfunction TSH 2.850 (9) Hypothyroidism: Code(s): E03.9 - Hypothyroidism, unspecified Status: Acute Assessment and Plan: Transition levothyroxine to IV form while NPO. TSH 2.850 (10) Hypertension: Code(s): I10 - Essential (primary) hypertension Status: Acute Assessment and Plan: BP 136/85 Blood pressures were reviewed and they have been stable. blood press
[2021-05-12 12:08] LABS: Glucose Point of Care 258 mg/dl (65-105)
[2021-05-12 13:16] LABS: Creatine Kinase 225 U/L (30-135)
[2021-05-12 13:40] LABS: Complement C3 107 mg/dL (88-165)
[2021-05-12 14:22] LABS: Erythrocyte Sedimentation Rate > 140 mm/hr (0-20)
--- NOTE | 2021-05-12 14:52 | PCSTNOTE ---
Speech Therapist spoke with who stated he heard had a good breakfast but did not want to eat solid meat at lunch. also stated she has upper dentures/missing teeth that makes chewing difficult. He ordered softer foods for supper. Therapist spoke with about assisting with ordering and requesting softer foods at this time. Since patient was sleeping; bedside swallow evaluation will be completed tomorrow.
[2021-05-12 16:33] LABS: Glucose Point of Care 204 mg/dl (65-105)
[2021-05-12 17:59] LABS: Add Urine Microscopic? YES; Amorphous Sediment Urine Few; Appearance Urine Cloudy (Clear); Bacteria Urine Trace /hpf; Bilirubin Urine Negative (Negative); Blood Urine 2+ (Negative); Color Urine Yellow (Yellow); Glucose Urine UA Negative (Negative); Ketones Urine Negative (Negative); Leukocyte Esterase Ur Trace LEU/UL (Negative); Mucus Urine Rare /lpf; Nitrate Urine Negative (Negative); Protein Urine 2+ mg/dL (Negative); RBC Urine 21-50 /hpf (0-2); Specific Grav Ur 1.026 (1.001-1.035); Urobilinogen Urine Negative mg/dL (<2.0); WBC Urine 16-20 /hpf
[2021-05-12 18:25] LABS: Creatinine Urine 148.9 mg/dL
[2021-05-12 18:29] LABS: Sodium Urine Random 37 meq/L
[2021-05-12] MEDS: ENOXAPARIN 120 MG/0.8 ML SYRINGE 110 MG SUB-Q (21:43)
[2021-05-12 22:05] LABS: Glucose Point of Care 197 mg/dl (65-105)
[2021-05-13] VITALS (9 sets, daily range): BP systolic 130–139; BP diastolic 55–98; PULSE 73–107; RESP 16–21; TEMP 36.4–36.7; O2SAT 96–100
[2021-05-13 05:37] LABS: Basophils Percent Auto 0.4 % (0.2-1.2); Eosinophils Absolute Auto 0.5 K/mm3 (0-0.3); Hematocrit 32.7 % (37.0-47.0); Hemoglobin 9.5 g/dL (12.0-15.0); Immature Granulocyte Absolute 0.04 K/mm3 (0.00-0.031); Immature Granulocyte Percent A 0.5 % (0-0.5); Lymphocytes Absolute Auto 0.72 K/mm3 (0.9-3.2); Lymphocytes Percent Auto 9.7 % (18.3-44.2); Mean Corpuscular HGB Conc 29.1 g/dl (32-36); Mean Corpuscular Hemoglobin 29.6 pg (26-34); Mean Corpuscular Volume 101.9 fl (80-100); Mean Platelet Volume 10.1 fl (7.4-10.4); Monocytes Absolute Auto 1.1 K/mm3 (0.1-0.6); Monocytes Percent Auto 14.1 % (2.6-8.5); Neutrophils Absolute Auto 5.1 K/mm3 (1.3-6.7); Neutrophils Percent Auto 68.3 % (45.5-73.1); Platelet Count Result 201 k/mm3 (150-375); Red Blood Count 3.21 M/mm3 (4.2-5.4); Red Cell Distribution Width 14.8 % (11.5-14.5); White Blood Count 7.4 K/mm3 (4.5-10.0)
[2021-05-13] MEDS: LEVOTHYROXINE SODIUM INJ 100 MCG/5 ML VIAL 62.5 MCG IV PUSH (05:39)
[2021-05-13 05:49] LABS: Alanine Aminotransferase 20 U/L (4-35); Alkaline Phosphatase 68 U/L (38-126); Anion Gap 15 mmol/L (8-16); Aspartate Amino Transferase 30 U/L (14-36); Bilirubin,Total 0.5 mg/dL (0.2-1.3); Blood Urea Nitrogen 58 mg/dL (7-17); Calcium 8.6 mg/dL (8.4-10.2); Carbon Dioxide 19 mmol/L (22-30); Chloride 105 mmol/L (98-107); Estimated CRCL calculation 16 ml/min; Estimated Glomerular Filt Rate 13; Glucose 252 mg/dL (65-110); Magnesium 2.1 mg/dL (1.6-2.3); Potassium 4.6 mmol/L (3.4-5.0); Sodium 139 mmol/L (137-145)
[2021-05-13 08:08] LABS: Glucose Point of Care 264 mg/dl (65-105)
--- NOTE | 2021-05-13 08:31 | PM.PNNEP ---
Subjective Date/time seen: 05/13/21 08:31 Interval history: Neris is a very pleasant 75-year-old lady who lives at home with her . She has longstanding hypertension, diabetes, hyperlipidemia, GERD, hypothyroidism, OA be, arthritis, history of cancer of the left breast, basal cell carcinoma of the nose, B12 deficiency, chronic kidney disease stage 3, arthritis, and anxiety. The patient came into the hospital because of altered mental status. She was seen in the ER. She was diagnosed with encephalopathy, pneumonia, CHF, pulmonary embolism, and UTI. She also had AFib new onset. She was also found to have an elevated CPK. She was placed on anticoagulants and given antibiotics. Along the way she had an CT angio of the brain and also CT angio of the chest. The patient's mental status has improved. Her creatinine generally runs in the low 1s with a GFR between 45 and 50 giving her stage IIIA CKD. However when she was admitted her creatinine was 1.4. This has risen gradually to about 4 yesterday and then dropped to 3.4 today. Renal consultation was requested patient denies any visibly bloody urine, foamy urine, kidney stones, bladder infections, or painful urination. Review of Systems Cardiovascular: Cardiovascular: Reports no additional cardiovascular complaints Respiratory: Respiratory: Reports no additional respiratory complaints Gastrointestinal: Gastrointestinal: Reports no additional gastrointestinal complaints Genitourinary: Genitourinary: Reports no additional female genitourinary complaints Exam Narrative: WDWN in NAD skin no rash head ncat lungs clear cor reg no rub abd BS+ nontender and soft ext no edema. Objective Data Vital Signs Vital Signs: Vital Signs - 24 hr 05/12/21 08:56 05/12/21 08:59 05/12/21 12:00 Temperature Pulse Rate 98 Respiratory Rate Blood Pressure Pulse Oximetry 100 85 L 05/12/21 14:00 05/12/21 16:00 05/12/21 20:00 Temperature 36.5 C Pulse Rate 95 83 97 Respiratory Rate 16 Blood Pressure 135/64 Pulse Oximetry 99 05/12/21 22:00 05/13/21 00:00 05/13/21 04:00 Temperature 36.4 C L Pulse Rate 98 105 H 98 Respiratory Rate 21 H Blood Pressure 112/53 L Pulse Oximetry 100 05/13/21 06:00 Temperature 36.4 C Pulse Rate 96 Respiratory Rate 21 H Blood Pressure 130/67 Pulse Oximetry 100 Intake/Output Intake/Output: Intake & Output 05/10/21 05/11/21 05/12/21 05/13/21 23:59 23:59 23:59 23:59 Intake Total 330 643 4673 428 Output Total 100 200 600 650 Balance 315 961 0525 -222 Meds/Results Medications: Active Medications Generic Name Dose Route Start Last Admin Trade Name Freq PRN Reason Stop Dose Admin Acetaminophen 650 mg 05/10/21 22:00 Acetaminophen 650 Mg Suppository RECTAL Q6H PRN Mild Pain (1-3) or Fever Dextrose 12.5 gm 05/11/21 16:28 Dextrose 50% 25 Gm/50 Ml Syringe IV PUSH PRN PRN Hypoglycemia Protocol Enoxaparin Sodium 110 mg 05/10/21 21:00 05/12/21 21:43 Enoxaparin 120 Mg/0.8 Ml Syringe SUB-Q 110 mg Q24H NATI Administration Glucagon 1 mg 05/11/21 16:28 Glucagon For Inj 1 Mg Vial IM PRN PRN Hypoglycemia Protocol Glucose 15 gm 05/11/21 16:28 Glucose Oral Gel 15 Gm Of Glucse In 37.5 Gm Tube PO PRN PRN Hypoglycemia Protocol Ceftriaxone Sodium/Dextrose 1 gm in 50 mls @ 100 mls/hr 05/10/21 21:00 05/12/21 22:10 Rocephin 1 Gm/D5w 50 Ml IVPB Infused Q24H NATI Infusion Azithromycin 500 mg in 250 mls @ 250 mls/hr 05/10/21 21:00 05/12/21 23:53 Zithromax IVPB Infused Q24H NATI Infusion Dextrose 1,000 mls @ 100 mls/hr 05/11/21 16:28 Dextrose 5% 1,000 Ml IVPB PRN PRN Hypoglycemia Protocol Sodium Chloride 1,000 mls @ 75 mls/hr 05/12/21 07:10 05/13/21 05:40 Sodium Chloride 0.45% IV CONT 75 mls/hr .[id number] NATI Infusion Insulin Aspart 4 - 8 units 05/11/21 17:00
--- NOTE | 2021-05-13 08:38 | PM.CNNEP ---
Assessment and Plan Assessment and plan (1) Acute on chronic kidney failure: Code(s): N17.9 - Acute kidney failure, unspecified; N18.9 - Chronic kidney disease, unspecified Status: Acute Assessment and Plan: the patient has chronic kidney disease. This is most likely due to diabetes and hypertension. Vascular disease could also be playing a role. The small right kidney could be playing a role as well. The creatinine had been stable for a long period of time. The patient has acute kidney injury. Her renal ultrasound shows mild atrophy of the right kidney but normal-looking left kidney. Nothing acute here. Urinalysis shows blood protein and pyuria. All consistent with a UTI. She is getting treated for this. I am not sure why her culture came back negative. Perhaps she had had some antibiotics as an outpatient. Urine electrolytes look pre renal. The patient did receive contrast. Since her creatinine is better today I would suspect that this is most likely contrast nephropathy. She was probably a bit dehydrated when she came in because of her encephalopathy and that plus her underlying chronic kidney disease may have predisposed her to this. The tests of course were vital in her evaluation. This contrast nephropathy should resolve on its own. the patient has pre renal urine electrolytes. She does have volume overload. Her EF is good but she does have critical aortic valve stenosis and severe pulmonary hypertension with moderate tricuspid regurgitation. and so most likely the patient has poor cardiac output leading to poor renal perfusion adding to her problems. This would probably explain the volume overload with pre renal urine electrolytes. She of course also has pneumonia which could contribute to renal failure. In addition she had pulmonary emboli which also can lead to poor renal perfusion as well. (2) Acute metabolic encephalopathy: Code(s): G93.41 - Metabolic encephalopathy Status: Acute Assessment and Plan: This seems to be improved. Possibly due to infections. (3) Rhabdomyolysis: Code(s): M62.82 - Rhabdomyolysis Status: Acute Assessment and Plan: Her CPK is slightly elevated. Is probably not high enough to contribute to her kidney issues. (4) Pulmonary embolism: Code(s): I26.99 - Other pulmonary embolism without acute cor pulmonale Status: Acute Assessment and Plan: She is on Lovenox (5) Abnormal urinalysis: Code(s): R82.90 - Unspecified abnormal findings in urine Status: Acute Assessment and Plan: she is on antibiotic (6) Fluid overload, unspecified: Code(s): E87.70 - Fluid overload, unspecified Status: Acute Assessment and Plan: this hopefully will improve as the kidneys improved (7) Hyperkalemia: Code(s): E87.5 - Hyperkalemia Status: Acute Assessment and Plan: she had 1 high potassium but this has resolved. (8) GERD (gastroesophageal reflux disease): Code(s): K21.9 - Gastro-esophageal reflux disease without esophagitis Status: Acute (9) Type 2 diabetes mellitus with hyperglycemia: Code(s): E11.65 - Type 2 diabetes mellitus with hyperglycemia Status: Acute Assessment and Plan: She is on Accu-Cheks and sliding-scale insulin History of Present Illness Reason for Consult Consult date: 05/13/21 Chief Complaint Chief complaint: Altered mental status History of Present Illness Narrative: Neris is a very pleasant 75-year-old lady who lives at home with her . She has longstanding hypertension, diabetes, hyperlipidemia, GERD, hypothyroidism, OA be, arthritis, history of cancer of the left breast, basal cell carcinoma of the nose, B12 deficiency, chronic kidney disease stage 3, arthritis, and anxiety. The patient came into the hospital because of altered mental status. She was seen in the ER. She was diagnosed wi
--- NOTE | 2021-05-13 09:00 | PM.IMPN ---
Progress Note: A&P Assessment and Plan (1) Pneumonia: Code(s): J18.9 - Pneumonia, unspecified organism Status: Acute Assessment and Plan: Chest x-ray shows worsening right upper lobe pneumonia. (05/10/21) Could be pulmonary edema, coarse crackles in bilateral lungs started on azithromycin and ceftriaxone. Sputum to be attempted for culture. COVID-19 is felt to be less likely. Continue aspiration precautions. (2) Congestive heart failure: Code(s): I50.9 - Heart failure, unspecified Status: Acute Assessment and Plan: Imaging showed some pleural effusions worse on recent chest x-ray BNP has increased 41949 (05/10/21) IV Lasix on hold for now due to renal failure Echocardiogram ejection fraction was 60 to 65% with diastolic dysfunction Strict I/O Urinary catheter Probably acute exacerbation of diastolic heart failure (3) Abnormal urinalysis: Code(s): R82.90 - Unspecified abnormal findings in urine Status: Acute Assessment and Plan: UA repeated showed cloudy yellow urine with 2+ blood, WBC 16-20, Ur. Bacteria trace, leukocyte esterase trace Repeat urine culture pending On ceftriaxone currently for PNA (4) Pulmonary embolism: Code(s): I26.99 - Other pulmonary embolism without acute cor pulmonale Status: Acute Assessment and Plan: Continue therapeutic Lovenox given NPO status. Echocardiogram ejection fraction was 60 to 65% with diastolic dysfunction lower extremity venous Doppler ultrasounds Show no DVT in bilateral lower legs CTA from the 30 shows PE Telemonitor showed SR at this time continue to monitor (5) Acute on chronic kidney failure: Code(s): N17.9 - Acute kidney failure, unspecified; N18.9 - Chronic kidney disease, unspecified Status: Acute Assessment and Plan: BUN/Cr getting better today 58/3.40 Secondary to over diuresis and poor oral intake. IV fluids on hold at this time given worsening pulmonary edema and pleural effusions. Avoid nephrotoxic agents. Urinary catheter Monitor I/O closely. Renal ultrasound unremarkable Could be from UTI Nephrology consult thank you CPK is slightly elevated at 225 (6) Type 2 diabetes mellitus with hyperglycemia: Code(s): E11.65 - Type 2 diabetes mellitus with hyperglycemia Status: Acute Assessment and Plan: Current glucose 252 Accu checks AC/HS Poorly controlled hemoglobin A1c greater than 10% continue with sliding scale insulin Consider initiation of basal insulin Trend glucose (7) Atrial fibrillation, new onset: Code(s): I48.91 - Unspecified atrial fibrillation Status: Acute Assessment and Plan: Rate is controlled Continue tele monitor Continue therapeutic Lovenox for now Will need to transition to oral anticoagulation when more awake. Echocardiogram ejection fraction was 60 to 65% with diastolic dysfunction TSH 2.850 (8) Hypothyroidism: Code(s): E03.9 - Hypothyroidism, unspecified Status: Acute Assessment and Plan: Transition levothyroxine to IV form while NPO. TSH 2.850 (9) Hypertension: Code(s): I10 - Essential (primary) hypertension Status: Acute Assessment and Plan: BP 112/53 blood pressures were soft upon admission Antihypertensives currently on hold. Trend BP Adjust medication as needed (10) Rhabdomyolysis: Code(s): M62.82 - Rhabdomyolysis Status: Acute Assessment and Plan: this is probably irrelevant and a mute point CK is elevated at 225 Could be the cause for the renal failure 1/2NS at 75ml/hr Trend (11) Acute metabolic encephalopathy: Code(s): G93.41 - Metabolic encephalopathy Status: Acute Assessment and Plan: Seems to be resolved, she is much more interactive and alert
--- NOTE | 2021-05-13 09:00 | P.PNIM_ITS ---
Progress Note: A&P Assessment and Plan (1) Pneumonia: Code(s): J18.9 - Pneumonia, unspecified organism Status: Acute Assessment and Plan: * Chest x-ray shows worsening right upper lobe pneumonia. (05/10/21) * Could be pulmonary edema, coarse crackles in bilateral lungs * started on azithromycin and ceftriaxone. * Sputum to be attempted for culture. * COVID-19 is felt to be less likely. * Continue aspiration precautions. (2) Congestive heart failure: Code(s): I50.9 - Heart failure, unspecified Status: Acute Assessment and Plan: * Imaging showed some pleural effusions worse on recent chest x-ray * BNP has increased 88137 (05/10/21) * IV Lasix on hold for now due to renal failure * Echocardiogram ejection fraction was 60 to 65% with diastolic dysfunction * Strict I/O * Urinary catheter * Probably acute exacerbation of diastolic heart failure (3) Abnormal urinalysis: Code(s): R82.90 - Unspecified abnormal findings in urine Status: Acute Assessment and Plan: * UA repeated showed cloudy yellow urine with 2+ blood, WBC 16-20, Ur. Bacteria trace, leukocyte esterase trace * Repeat urine culture pending * On ceftriaxone currently for PNA (4) Pulmonary embolism: Code(s): I26.99 - Other pulmonary embolism without acute cor pulmonale Status: Acute Assessment and Plan: * Continue therapeutic Lovenox given NPO status. * Echocardiogram ejection fraction was 60 to 65% with diastolic dysfunction * lower extremity venous Doppler ultrasounds Show no DVT in bilateral lower legs * CTA from the 30 shows PE * Telemonitor showed SR at this time continue to monitor (5) Acute on chronic kidney failure: Code(s): N17.9 - Acute kidney failure, unspecified; N18.9 - Chronic kidney disease, unspecified Status: Acute Assessment and Plan: * BUN/Cr getting better today 58/3.40 * Secondary to over diuresis and poor oral intake. * IV fluids on hold at this time given worsening pulmonary edema and pleural effusions. * Avoid nephrotoxic agents. * Urinary catheter * Monitor I/O closely. * Renal ultrasound unremarkable * Could be from UTI * Nephrology consult thank you * CPK is slightly elevated at 225 (6) Type 2 diabetes mellitus with hyperglycemia: Code(s): E11.65 - Type 2 diabetes mellitus with hyperglycemia Status: Acute Assessment and Plan: * Current glucose 252 * Accu checks AC/HS * Poorly controlled * hemoglobin A1c greater than 10% * continue with sliding scale insulin * Consider initiation of basal insulin * Trend glucose (7) Atrial fibrillation, new onset: Code(s): I48.91 - Unspecified atrial fibrillation Status: Acute Assessment and Plan: * Rate is controlled * Continue tele monitor * Continue therapeutic Lovenox for now * Will need to transition to oral anticoagulation when more awake. * Echocardiogram ejection fraction was 60 to 65% with diastolic dysfunction * TSH 2.850 (8) Hypothyroidism: Code(s): E03.9 - Hypothyroidism, unspecified Status: Acute Assessment and Plan: * Transition levothyroxine to IV form while NPO. * TSH 2.850 (9) Hypertension: Code(s): I10 - Essential (primary) hypertension Status: Acute Assessment and Plan: * BP 112/53 * blood pressures were soft upo
[2021-05-13] MEDS: INSULIN ASPART (*BKC) 100 UNITS/ML SUB-Q ×3 (09:04→17:21)
[2021-05-13] MEDS: SODIUM CHLORIDE 0.45% 1,000 ML 75 ML IV CONT ×2 (09:10→17:21)
[2021-05-13] MEDS: MICONAZOLE NITRATE 2% CREAM 30 GM TUBE 1 APPLIC TOPICAL ×2 (09:10→20:35)
--- NOTE | 2021-05-13 09:29 | PCSTNOTE ---
Please refer to the Bedside Swallow Evaluation in the EMR. Please note, silent aspiration cannot be ruled out at bedside.
--- NOTE | 2021-05-13 11:44 | PCOTNOTE ---
Attempted to see for evaluation, pt. is away from room at swallow study. Will return later.
[2021-05-13 12:44] LABS: Glucose Point of Care 246 mg/dl (65-105)
[2021-05-13 16:37] LABS: Glucose Point of Care 229 mg/dl (65-105)
[2021-05-13] MEDS: ENOXAPARIN 120 MG/0.8 ML SYRINGE 110 MG SUB-Q (20:35)
[2021-05-13 21:06] LABS: Glucose Point of Care 234 mg/dl (65-105)
[2021-05-14] VITALS (11 sets, daily range): BP systolic 121–128; BP diastolic 63–73; PULSE 85–113; RESP 14–18; TEMP 36.2–36.6; O2SAT 91–100
[2021-05-14 06:15] LABS: Basophils Percent Auto 0.5 % (0.2-1.2); Eosinophils Absolute Auto 0.5 K/mm3 (0-0.3); Eosinophils Percent Auto 7.6 % (0-4.4); Hematocrit 27.7 % (37.0-47.0); Hemoglobin 8.6 g/dL (12.0-15.0); Immature Granulocyte Absolute 0.08 K/mm3 (0.00-0.031); Immature Granulocyte Percent A 1.2 % (0-0.5); Lymphocytes Absolute Auto 0.59 K/mm3 (0.9-3.2); Lymphocytes Percent Auto 9.2 % (18.3-44.2); Mean Corpuscular Hemoglobin 28.8 pg (26-34); Mean Corpuscular Volume 92.6 fl (80-100); Mean Platelet Volume 11.8 fl (7.4-10.4); Monocytes Absolute Auto 0.9 K/mm3 (0.1-0.6); Monocytes Percent Auto 14.2 % (2.6-8.5); Neutrophils Absolute Auto 4.3 K/mm3 (1.3-6.7); Neutrophils Percent Auto 67.3 % (45.5-73.1); Platelet Count Result 171 k/mm3 (150-375); Red Blood Count 2.99 M/mm3 (4.2-5.4); Red Cell Distribution Width 14.6 % (11.5-14.5); White Blood Count 6.4 K/mm3 (4.5-10.0)
[2021-05-14] MEDS: LEVOTHYROXINE SODIUM 125 MCG TABLET PO (06:24)
[2021-05-14 06:25] LABS: Alanine Aminotransferase 23 U/L (4-35); Albumin Level 2.9 g/dL (3.5-5.1); Alkaline Phosphatase 64 U/L (38-126); Anion Gap 11 mmol/L (8-16); Aspartate Amino Transferase 34 U/L (14-36); Bilirubin,Total 0.6 mg/dL (0.2-1.3); Blood Urea Nitrogen 49 mg/dL (7-17); Calcium 8.4 mg/dL (8.4-10.2); Carbon Dioxide 22 mmol/L (22-30); Chloride 104 mmol/L (98-107); Creatine Kinase 324 U/L (30-135); Estimated CRCL calculation 23 ml/min; Estimated Glomerular Filt Rate 21; Glucose 268 mg/dL (65-110); Magnesium 1.9 mg/dL (1.6-2.3); Phosphorus 3.7 mg/dL (2.5-4.5); Potassium 4.1 mmol/L (3.4-5.0); Sodium 137 mmol/L (137-145)
[2021-05-14] MEDS: INSULIN ASPART (*BKC) 100 UNITS/ML SUB-Q ×2 (08:02→12:08)
[2021-05-14] MEDS: MICONAZOLE NITRATE 2% CREAM 30 GM TUBE 1 APPLIC TOPICAL ×2 (08:03→20:00)
[2021-05-14 08:04] LABS: Glucose Point of Care 281 mg/dl (65-105)
[2021-05-14 08:37] LABS: NT Pro B Type Natriuretic Pept 8030 pg/mL (5-100)
--- NOTE | 2021-05-14 10:16 | PC.NURSE ---
pt had a swallow study yesterday 05/13/21 and was put on mildly thickened liquids and soft / bite size food. pt was observed to be coughing quite a bit on the mild thick liquids this morning. [facility], and [facility] Suther[facility], were both notified. [facility] is to come observe pt for lunch time today. Will continue to monitor
--- NOTE | 2021-05-14 11:05 | PCPTNOTE ---
Attempt made for PT treatment in the AM. Pt was sleeping and wouldn't keep her eyes open. Will check back with the pt after lunch.
[2021-05-14 11:56] LABS: Glucose Point of Care 247 mg/dl (65-105)
--- NOTE | 2021-05-14 12:30 | PM.IMPN ---
Progress Note: A&P Assessment and Plan (1) Pneumonia: Code(s): J18.9 - Pneumonia, unspecified organism Status: Acute Assessment and Plan: Repeat chest xray in the am to evaluate status Chest x-ray shows worsening right upper lobe pneumonia. (05/10/21) Could be pulmonary edema, coarse crackles in bilateral lungs started on azithromycin and ceftriaxone. Day 4 Sputum to be attempted for culture. COVID-19 is felt to be less likely. Continue aspiration precautions. (2) Congestive heart failure: Code(s): I50.9 - Heart failure, unspecified Status: Acute Assessment and Plan: Imaging showed some pleural effusions worse on recent chest x-ray BNP 8030 Give once dose of IV Lasix 40mg Echocardiogram ejection fraction was 60 to 65% with diastolic dysfunction Strict I/O Urinary catheter Probably acute exacerbation of diastolic heart failure, secondary to renal failure (3) Abnormal urinalysis: Code(s): R82.90 - Unspecified abnormal findings in urine Status: Acute Assessment and Plan: UA repeated showed cloudy yellow urine with 2+ blood, WBC 16-20, Ur. Bacteria trace, leukocyte esterase trace Repeat urine culture shows no growth On ceftriaxone currently for PNA (4) Pulmonary embolism: Code(s): I26.99 - Other pulmonary embolism without acute cor pulmonale Status: Acute Assessment and Plan: Continue therapeutic Lovenox Echocardiogram ejection fraction was 60 to 65% with diastolic dysfunction lower extremity venous Doppler ultrasounds Show no DVT in bilateral lower legs CTA from the 30 shows PE Telemonitor showed SR at this time continue to monitor (5) Acute on chronic kidney failure: Code(s): N17.9 - Acute kidney failure, unspecified; N18.9 - Chronic kidney disease, unspecified Status: Acute Assessment and Plan: BUN/Cr getting better 49/2.30 Secondary to over diuresis and poor oral intake. Discontinue IV fluids for now Avoid nephrotoxic agents. Urinary catheter Monitor I/O closely. Renal ultrasound unremarkable Nephrology consult thank you CK trending up 324 (6) Type 2 diabetes mellitus with hyperglycemia: Code(s): E11.65 - Type 2 diabetes mellitus with hyperglycemia Status: Acute Assessment and Plan: Current glucose 268 Accu checks AC/HS Poorly controlled hemoglobin A1c greater than 10% continue with sliding scale insulin Initiate 27 units Lantus at night NPH 16 units x 1 now Trend glucose (7) Atrial fibrillation, new onset: Code(s): I48.91 - Unspecified atrial fibrillation Status: Acute Assessment and Plan: Rate is controlled Continue tele monitor Continue therapeutic Lovenox for now Will need to transition to oral anticoagulation Echocardiogram ejection fraction was 60 to 65% with diastolic dysfunction TSH 2.850 (8) Hypothyroidism: Code(s): E03.9 - Hypothyroidism, unspecified Status: Acute Assessment and Plan: Transition levothyroxine back to PO TSH 2.850 (9) Hypertension: Code(s): I10 - Essential (primary) hypertension Status: Acute Assessment and Plan: BP 125/73 blood pressures were soft upon admission Antihypertensives currently on hold. Trend BP Adjust medication as needed (10) Rhabdomyolysis: Code(s): M62.82 - Rhabdomyolysis Status: Acute Assessment and Plan: this is probably irrelevant and a mute point CK is trending up and is 324 Could be the cause for the renal failure Trend (11) Acute metabolic encephalopathy: Code(s): G93.41 - Metabolic encephalopathy Status: Acute Assessment and Plan: Seems to be resolved, she is much more interactive and alert when talking to her Could be from PNA, or worsening renal function Urine cu
--- NOTE | 2021-05-14 12:30 | P.PNIM_ITS ---
Progress Note: A&P Assessment and Plan (1) Pneumonia: Code(s): J18.9 - Pneumonia, unspecified organism Status: Acute Assessment and Plan: * Repeat chest xray in the am to evaluate status * Chest x-ray shows worsening right upper lobe pneumonia. (05/10/21) * Could be pulmonary edema, coarse crackles in bilateral lungs * started on azithromycin and ceftriaxone. Day 4 * Sputum to be attempted for culture. * COVID-19 is felt to be less likely. * Continue aspiration precautions. (2) Congestive heart failure: Code(s): I50.9 - Heart failure, unspecified Status: Acute Assessment and Plan: * Imaging showed some pleural effusions worse on recent chest x-ray * BNP 8030 * Give once dose of IV Lasix 40mg * Echocardiogram ejection fraction was 60 to 65% with diastolic dysfunction * Strict I/O * Urinary catheter * Probably acute exacerbation of diastolic heart failure, secondary to renal failure (3) Abnormal urinalysis: Code(s): R82.90 - Unspecified abnormal findings in urine Status: Acute Assessment and Plan: * UA repeated showed cloudy yellow urine with 2+ blood, WBC 16-20, Ur. Bacteria trace, leukocyte esterase trace * Repeat urine culture shows no growth * On ceftriaxone currently for PNA (4) Pulmonary embolism: Code(s): I26.99 - Other pulmonary embolism without acute cor pulmonale Status: Acute Assessment and Plan: * Continue therapeutic Lovenox * Echocardiogram ejection fraction was 60 to 65% with diastolic dysfunction * lower extremity venous Doppler ultrasounds Show no DVT in bilateral lower legs * CTA from the 30 shows PE * Telemonitor showed SR at this time continue to monitor (5) Acute on chronic kidney failure: Code(s): N17.9 - Acute kidney failure, unspecified; N18.9 - Chronic kidney disease, unspecified Status: Acute Assessment and Plan: * BUN/Cr getting better 49/2.30 * Secondary to over diuresis and poor oral intake. * Discontinue IV fluids for now * Avoid nephrotoxic agents. * Urinary catheter * Monitor I/O closely. * Renal ultrasound unremarkable * Nephrology consult thank you * CK trending up 324 (6) Type 2 diabetes mellitus with hyperglycemia: Code(s): E11.65 - Type 2 diabetes mellitus with hyperglycemia Status: Acute Assessment and Plan: * Current glucose 268 * Accu checks AC/HS * Poorly controlled * hemoglobin A1c greater than 10% * continue with sliding scale insulin * Initiate 27 units Lantus at night * NPH 16 units x 1 now * Trend glucose (7) Atrial fibrillation, new onset: Code(s): I48.91 - Unspecified atrial fibrillation Status: Acute Assessment and Plan: * Rate is controlled * Continue tele monitor * Continue therapeutic Lovenox for now * Will need to transition to oral anticoagulation * Echocardiogram ejection fraction was 60 to 65% with diastolic dysfunction * TSH 2.850 (8) Hypothyroidism: Code(s): E03.9 - Hypothyroidism, unspecified Status: Acute Assessment and Plan: * Transition levothyroxine back to PO * TSH 2.850 (9) Hypertension: Code(s): I10 - Essential (primary) hypertension Status: Acute Assessment and Plan: * BP 125/73 * blood pressures were soft upon admission * Antihypertensives currently on hold
[2021-05-14] MEDS: INSULIN HUMAN NPH (*BKC) 100 UNITS/ML 16 UNITS SUB-Q (13:18)
[2021-05-14] MEDS: FUROSEMIDE INJ 40 MG/4 ML VIAL IV PUSH (13:19)
--- NOTE | 2021-05-14 14:02 | PM.PNNEP ---
Progress Note: A&P Assessment and Plan (1) Acute on chronic kidney failure: Code(s): N17.9 - Acute kidney failure, unspecified; N18.9 - Chronic kidney disease, unspecified Status: Acute Assessment and Plan: the patient has chronic kidney disease. This is most likely due to diabetes and hypertension. Vascular disease could also be playing a role. The small right kidney could be playing a role as well. The creatinine had been stable for a long period of time. Baseline creatinine seems to be about 1-1.2. The patient has acute kidney injury. Her renal ultrasound shows mild atrophy of the right kidney but normal-looking left kidney. Nothing acute here. Urinalysis shows blood protein and pyuria. All consistent with a UTI. She is getting treated for this. I am not sure why her culture came back negative. Perhaps she had had some antibiotics as an outpatient. Urine electrolytes look pre renal. CPK not impressively high. Most likely this is KENA from contrast and infection. Her creatinine is a little bit better again today. Continuing antibiotics. (2) Acute metabolic encephalopathy: Code(s): G93.41 - Metabolic encephalopathy Status: Acute Assessment and Plan: This seems to be improved. Possibly due to infections. (3) Rhabdomyolysis: Code(s): M62.82 - Rhabdomyolysis Status: Acute Assessment and Plan: Her CPK is slightly elevated. Is probably not high enough to contribute to her kidney issues. (4) Pulmonary embolism: Code(s): I26.99 - Other pulmonary embolism without acute cor pulmonale Status: Acute Assessment and Plan: She is on Lovenox (5) Abnormal urinalysis: Code(s): R82.90 - Unspecified abnormal findings in urine Status: Acute Assessment and Plan: she is on antibiotics Second culture was negative as well. (6) Fluid overload, unspecified: Code(s): E87.70 - Fluid overload, unspecified Status: Acute Assessment and Plan: this hopefully will improve as the kidneys improve Urine output overnight was much higher at 1525 (7) Hyperkalemia: Code(s): E87.5 - Hyperkalemia Status: Acute Assessment and Plan: she had 1 high potassium but this has resolved. (8) GERD (gastroesophageal reflux disease): Code(s): K21.9 - Gastro-esophageal reflux disease without esophagitis Status: Acute (9) Type 2 diabetes mellitus with hyperglycemia: Code(s): E11.65 - Type 2 diabetes mellitus with hyperglycemia Status: Acute Assessment and Plan: She is on Accu-Cheks and sliding-scale insulin Subjective Date/time seen: 05/14/21 14:02 Objective Data Vital Signs Vital Signs: Vital Signs - 24 hr 05/13/21 14:46 05/13/21 16:00 05/13/21 19:45 Temperature 36.7 C Pulse Rate 73 73 Respiratory Rate 16 Blood Pressure 139/98 H Pulse Oximetry 98 98 05/13/21 20:00 05/14/21 00:00 05/14/21 04:00 Temperature 36.6 C Pulse Rate 107 H 105 H 113 H Respiratory Rate 19 Blood Pressure 130/55 L Pulse Oximetry 98 05/14/21 04:55 05/14/21 06:35 05/14/21 08:00 Temperature 36.6 C Pulse Rate 85 100 Respiratory Rate 16 Blood Pressure 125/73 Pulse Oximetry 100 95 95 05/14/21 12:00 Temperature Pulse Rate 94 Respiratory Rate Blood Pressure Pulse Oximetry Intake/Output Intake/Output: Intake & Output 05/11/21 05/12/21 05/13/21 05/14/21 23:59 23:59 23:59 23:59 Intake Total 570 1690 2820 845 Output Total 397 458 0262 1525 Balance 370 1090 1620 -680 Meds/Results Medications: Active Medications Generic Name Dose Route Start Last Admin Trade Name Freq PRN Reason Stop Dose Admin Acetaminophen 650 mg 05/10/21 22:00 Acetaminophen 650 Mg Suppository RECTAL Q6H PRN Mild Pain (1-3) or Fever Dextrose 12.5 gm 05/11/21 16:28 Dextrose 50% 25 Gm/50 Ml Syringe IV PUSH PRN PRN Hypoglycemia
--- NOTE | 2021-05-14 16:02 | PCSTNOTE ---
therapist made several attempts to see patient who was with other caregivers.
[2021-05-14 16:38] LABS: Glucose Point of Care 193 mg/dl (65-105)
[2021-05-14 19:49] LABS: Glucose Point of Care 273 mg/dl (65-105)
[2021-05-14] MEDS: INSULIN GLARGINE (*BKC) 100 UNITS/ML 27 UNITS SUB-Q (20:00)
[2021-05-14] MEDS: ENOXAPARIN 120 MG/0.8 ML SYRINGE 110 MG SUB-Q (20:00)
[2021-05-14 22:03] LABS: Osmolality, Urine 380 mOsm/kg (50-1200)
[2021-05-15] VITALS (11 sets, daily range): BP systolic 125–132; BP diastolic 55–60; PULSE 86–101; RESP 16–17; TEMP 36.1–36.9; O2SAT 96–98
[2021-05-15] MEDS: LEVOTHYROXINE SODIUM 125 MCG TABLET PO (05:51)
[2021-05-15 05:54] LABS: Basophils Percent Auto 0.4 % (0.2-1.2); Eosinophils Absolute Auto 0.9 K/mm3 (0-0.3); Eosinophils Percent Auto 12.4 % (0-4.4); Hematocrit 30.3 % (37.0-47.0); Hemoglobin 9.5 g/dL (12.0-15.0); Immature Granulocyte Absolute 0.06 K/mm3 (0.00-0.031); Immature Granulocyte Percent A 0.8 % (0-0.5); Lymphocytes Absolute Auto 0.89 K/mm3 (0.9-3.2); Lymphocytes Percent Auto 11.9 % (18.3-44.2); Mean Corpuscular HGB Conc 31.4 g/dl (32-36); Mean Corpuscular Hemoglobin 29.6 pg (26-34); Mean Corpuscular Volume 94.4 fl (80-100); Mean Platelet Volume 10.1 fl (7.4-10.4); Monocytes Absolute Auto 1.2 K/mm3 (0.1-0.6); Monocytes Percent Auto 15.6 % (2.6-8.5); Neutrophils Absolute Auto 4.4 K/mm3 (1.3-6.7); Neutrophils Percent Auto 58.9 % (45.5-73.1); Platelet Count Result 241 k/mm3 (150-375); Red Blood Count 3.21 M/mm3 (4.2-5.4); Red Cell Distribution Width 14.8 % (11.5-14.5); White Blood Count 7.5 K/mm3 (4.5-10.0)
[2021-05-15 06:14] LABS: Alanine Aminotransferase 26 U/L (4-35); Albumin Level 3.2 g/dL (3.5-5.1); Alkaline Phosphatase 68 U/L (38-126); Anion Gap 6 mmol/L (8-16); Aspartate Amino Transferase 34 U/L (14-36); Bilirubin,Total 0.6 mg/dL (0.2-1.3); Blood Urea Nitrogen 35 mg/dL (7-17); Calcium 9.3 mg/dL (8.4-10.2); Carbon Dioxide 30 mmol/L (22-30); Chloride 105 mmol/L (98-107); Estimated CRCL calculation 33 ml/min; Estimated Glomerular Filt Rate 31; Glucose 169 mg/dL (65-110); Magnesium 1.9 mg/dL (1.6-2.3); Potassium 3.3 mmol/L (3.4-5.0); Sodium 141 mmol/L (137-145)
[2021-05-15 07:54] LABS: Glucose Point of Care 133 mg/dl (65-105)
[2021-05-15] MEDS: MICONAZOLE NITRATE 2% CREAM 30 GM TUBE 1 APPLIC TOPICAL ×2 (08:03→20:34)
[2021-05-15] MEDS: FUROSEMIDE INJ 40 MG/4 ML VIAL IV PUSH ×2 (08:03→16:40)
--- NOTE | 2021-05-15 11:20 | PM.IMPN ---
Progress Note: A&P Assessment and Plan (1) Pneumonia: Code(s): J18.9 - Pneumonia, unspecified organism Status: Acute Assessment and Plan: Repeat chest xray in the am shows pulmonary edema with vascular congestion with PNA Chest x-ray: Pulmonary vascular congestion and increasing mild pulmonary edema, Sm to Mod right and Sm left pleural effusion, and cardiomegaly started on azithromycin and ceftriaxone. Day 5 Sputum to be attempted for culture. COVID-19 is felt to be less likely. Continue aspiration precautions. (2) Congestive heart failure: Code(s): I50.9 - Heart failure, unspecified Status: Acute Assessment and Plan: Chest xray from 05/15/21 shows pulmonary congestion with increasing edema, and pleural effusions IV Lasix 40mg BID Echocardiogram ejection fraction was 60 to 65% with diastolic dysfunction Strict I/O Urinary catheter Probably acute exacerbation of diastolic heart failure, secondary to renal failure Daily weights (3) Abnormal urinalysis: Code(s): R82.90 - Unspecified abnormal findings in urine Status: Acute Assessment and Plan: UA repeated showed cloudy yellow urine with 2+ blood, WBC 16-20, Ur. Bacteria trace, leukocyte esterase trace Repeat urine culture shows no growth On ceftriaxone currently for PNA (4) Pulmonary embolism: Code(s): I26.99 - Other pulmonary embolism without acute cor pulmonale Status: Acute Assessment and Plan: Continue therapeutic Lovenox Echocardiogram ejection fraction was 60 to 65% with diastolic dysfunction lower extremity venous Doppler ultrasounds Show no DVT in bilateral lower legs CTA from the 30th shows PE Telemonitor showed SR at this time continue to monitor (5) Acute on chronic kidney failure: Code(s): N17.9 - Acute kidney failure, unspecified; N18.9 - Chronic kidney disease, unspecified Status: Acute Assessment and Plan: BUN/Cr getting better 35/1.60 Secondary to over diuresis and poor oral intake. Avoid nephrotoxic agents. Urinary catheter Monitor I/O closely. Renal ultrasound unremarkable Nephrology consult thank you (6) Type 2 diabetes mellitus with hyperglycemia: Code(s): E11.65 - Type 2 diabetes mellitus with hyperglycemia Status: Acute Assessment and Plan: Current glucose 169 Accu checks AC/HS Poorly controlled hemoglobin A1c greater than 10% continue with sliding scale insulin Initiate 27 units Lantus at night NPH 16 units x 1 now Trend glucose (7) Atrial fibrillation, new onset: Code(s): I48.91 - Unspecified atrial fibrillation Status: Acute Assessment and Plan: Rate is controlled Continue tele monitor Continue therapeutic Lovenox for now Will need to transition to oral anticoagulation Echocardiogram ejection fraction was 60 to 65% with diastolic dysfunction TSH 2.850 (8) Hypothyroidism: Code(s): E03.9 - Hypothyroidism, unspecified Status: Acute Assessment and Plan: Transition levothyroxine back to PO TSH 2.850 (9) Hypertension: Code(s): I10 - Essential (primary) hypertension Status: Acute Assessment and Plan: BP 132/60 blood pressures were soft upon admission Antihypertensives currently on hold. Trend BP Adjust medication as needed (10) Rhabdomyolysis: Code(s): M62.82 - Rhabdomyolysis Status: Acute Assessment and Plan: this is probably irrelevant and a mute point CK repeat in the am Could be the cause for the renal failure Trend (11) Acute metabolic encephalopathy: Code(s): G93.41 - Metabolic encephalopathy Status: Acute Assessment and Plan: Seems to be resolved, she is much more interactive and alert when talking to her Could be from PNA, or worsening renal function
--- NOTE | 2021-05-15 11:20 | P.PNIM_ITS ---
Progress Note: A&P Assessment and Plan (1) Pneumonia: Code(s): J18.9 - Pneumonia, unspecified organism Status: Acute Assessment and Plan: * Repeat chest xray in the am shows pulmonary edema with vascular congestion with PNA * Chest x-ray: Pulmonary vascular congestion and increasing mild pulmonary edema, Sm to Mod right and Sm left pleural effusion, and cardiomegaly * started on azithromycin and ceftriaxone. Day 5 * Sputum to be attempted for culture. * COVID-19 is felt to be less likely. * Continue aspiration precautions. (2) Congestive heart failure: Code(s): I50.9 - Heart failure, unspecified Status: Acute Assessment and Plan: * Chest xray from 05/15/21 shows pulmonary congestion with increasing edema, and pleural effusions * IV Lasix 40mg BID * Echocardiogram ejection fraction was 60 to 65% with diastolic dysfunction * Strict I/O * Urinary catheter * Probably acute exacerbation of diastolic heart failure, secondary to renal failure * Daily weights (3) Abnormal urinalysis: Code(s): R82.90 - Unspecified abnormal findings in urine Status: Acute Assessment and Plan: * UA repeated showed cloudy yellow urine with 2+ blood, WBC 16-20, Ur. Bacteria trace, leukocyte esterase trace * Repeat urine culture shows no growth * On ceftriaxone currently for PNA (4) Pulmonary embolism: Code(s): I26.99 - Other pulmonary embolism without acute cor pulmonale Status: Acute Assessment and Plan: * Continue therapeutic Lovenox * Echocardiogram ejection fraction was 60 to 65% with diastolic dysfunction * lower extremity venous Doppler ultrasounds Show no DVT in bilateral lower legs * CTA from the shows PE * Telemonitor showed SR at this time continue to monitor (5) Acute on chronic kidney failure: Code(s): N17.9 - Acute kidney failure, unspecified; N18.9 - Chronic kidney disease, unspecified Status: Acute Assessment and Plan: * BUN/Cr getting better 35/1.60 * Secondary to over diuresis and poor oral intake. * Avoid nephrotoxic agents. * Urinary catheter * Monitor I/O closely. * Renal ultrasound unremarkable * Nephrology consult thank you (6) Type 2 diabetes mellitus with hyperglycemia: Code(s): E11.65 - Type 2 diabetes mellitus with hyperglycemia Status: Acute Assessment and Plan: * Current glucose 169 * Accu checks AC/HS * Poorly controlled * hemoglobin A1c greater than 10% * continue with sliding scale insulin * Initiate 27 units Lantus at night * NPH 16 units x 1 now * Trend glucose (7) Atrial fibrillation, new onset: Code(s): I48.91 - Unspecified atrial fibrillation Status: Acute Assessment and Plan: * Rate is controlled * Continue tele monitor * Continue therapeutic Lovenox for now * Will need to transition to oral anticoagulation * Echocardiogram ejection fraction was 60 to 65% with diastolic dysfunction * TSH 2.850 (8) Hypothyroidism: Code(s): E03.9 - Hypothyroidism, unspecified Status: Acute Assessment and Plan: * Transition levothyroxine back to PO * TSH 2.850 (9) Hypertension: Code(s): I10 - Essential (primary) hypertension Status: Acute Assessment and Plan: * BP 132/60 * blood pressures were soft upon admission * Antihyperte
[2021-05-15 11:59] LABS: Glucose Point of Care 198 mg/dl (65-105)
[2021-05-15] MEDS: POTASSIUM CHLORIDE 20 MEQ PACKET (FOR LIQUID) 40 MEQ PO (16:40)
[2021-05-15] MEDS: INSULIN ASPART (*BKC) 100 UNITS/ML SUB-Q (16:40)
[2021-05-15 16:44] LABS: Glucose Point of Care 223 mg/dl (65-105)
[2021-05-15] MEDS: ENOXAPARIN 120 MG/0.8 ML SYRINGE 110 MG SUB-Q (20:32)
[2021-05-15] MEDS: INSULIN GLARGINE (*BKC) 100 UNITS/ML 27 UNITS SUB-Q (20:32)
[2021-05-15 21:45] LABS: Glucose Point of Care 305 mg/dl (65-105)
--- NOTE | 2021-05-15 22:00 | PM.PNNEP ---
Progress Note: A&P Assessment and Plan (1) Acute on chronic kidney failure: Code(s): N17.9 - Acute kidney failure, unspecified; N18.9 - Chronic kidney disease, unspecified Status: Acute Assessment and Plan: the patient has chronic kidney disease. This is most likely due to diabetes and hypertension. Vascular disease could also be playing a role. The small right kidney could be playing a role as well. The creatinine had been stable for a long period of time. Baseline creatinine seems to be about 1-1.2. The patient has acute kidney injury. Her renal ultrasound shows mild atrophy of the right kidney but normal-looking left kidney. Nothing acute here. Urinalysis shows blood protein and pyuria. All consistent with a UTI. She is getting treated for this. I am not sure why her culture came back negative. Perhaps she had had some antibiotics as an outpatient. Urine electrolytes look pre renal. CPK not impressively high. Most likely this is KENA from contrast and infection. Her creatinine is better yet, down to 1.6. Continuing antibiotics. (2) Acute metabolic encephalopathy: Code(s): G93.41 - Metabolic encephalopathy Status: Acute Assessment and Plan: This seems to be improved. Possibly due to infections. (3) Rhabdomyolysis: Code(s): M62.82 - Rhabdomyolysis Status: Acute Assessment and Plan: Her CPK is slightly elevated. Is probably not high enough to contribute to her kidney issues. (4) Pulmonary embolism: Code(s): I26.99 - Other pulmonary embolism without acute cor pulmonale Status: Acute Assessment and Plan: She is on Lovenox (5) Abnormal urinalysis: Code(s): R82.90 - Unspecified abnormal findings in urine Status: Acute Assessment and Plan: she is on antibiotics Second culture was negative as well. (6) Fluid overload, unspecified: Code(s): E87.70 - Fluid overload, unspecified Status: Acute Assessment and Plan: this hopefully will improve as the kidneys improve Urine output overnight was much higher at 1525 (7) Hyperkalemia: Code(s): E87.5 - Hyperkalemia Status: Acute Assessment and Plan: she had 1 high potassium but this has resolved. (8) GERD (gastroesophageal reflux disease): Code(s): K21.9 - Gastro-esophageal reflux disease without esophagitis Status: Acute (9) Type 2 diabetes mellitus with hyperglycemia: Code(s): E11.65 - Type 2 diabetes mellitus with hyperglycemia Status: Acute Assessment and Plan: She is on Accu-Cheks and sliding-scale insulin Subjective Date/time seen: 05/15/21 22:00 Interval history: patient feels better. no cp or sob. Review of Systems Cardiovascular: Cardiovascular: Reports no additional cardiovascular complaints Respiratory: Respiratory: Reports no additional respiratory complaints Gastrointestinal: Gastrointestinal: Reports no additional gastrointestinal complaints Genitourinary: Genitourinary: Reports no additional female genitourinary complaints Exam Narrative: WDWN in NAD skin no rash or sq nodules head ncat lungs clear bilaterally. cor reg no rub abd BS+ nontender and soft ext no edema or cyanosis. Objective Data Vital Signs Vital Signs: Vital Signs - 24 hr 05/15/21 00:00 05/15/21 00:35 05/15/21 04:00 Temperature Pulse Rate 95 88 Respiratory Rate Blood Pressure Pulse Oximetry 96 05/15/21 05:17 05/15/21 08:00 05/15/21 12:00 Temperature 36.4 C Pulse Rate 86 89 93 Respiratory Rate 17 Blood Pressure 132/60 Pulse Oximetry 97 97 05/15/21 14:00 05/15/21 16:00 05/15/21 17:25 Temperature 36.1 C L Pulse Rate 96 93 Respiratory Rate 16 Blood Pressure 127/55 L Pulse Oximetry 98 96 05/15/21 19:58 05/15/21 20:00 Temperature 36.9 C Pulse Rate 101 H 101 H Respiratory Rate 16 Blood Pressure 125/59 L Pulse Oximetry 96
[2021-05-16] VITALS (9 sets, daily range): BP systolic 108–123; BP diastolic 38–51; PULSE 92–99; RESP 16; TEMP 36.3–36.6; O2SAT 94–96
[2021-05-16] MEDS: LEVOTHYROXINE SODIUM 125 MCG TABLET PO (05:48)
[2021-05-16 06:04] LABS: Basophils Percent Auto 0.4 % (0.2-1.2); Eosinophils Absolute Auto 0.6 K/mm3 (0-0.3); Eosinophils Percent Auto 7.1 % (0-4.4); Hematocrit 31.7 % (37.0-47.0); Immature Granulocyte Absolute 0.14 K/mm3 (0.00-0.031); Immature Granulocyte Percent A 1.6 % (0-0.5); Lymphocytes Absolute Auto 1.07 K/mm3 (0.9-3.2); Mean Corpuscular HGB Conc 31.5 g/dl (32-36); Mean Corpuscular Hemoglobin 29.1 pg (26-34); Mean Corpuscular Volume 92.2 fl (80-100); Mean Platelet Volume 9.9 fl (7.4-10.4); Monocytes Absolute Auto 1.3 K/mm3 (0.1-0.6); Monocytes Percent Auto 14.8 % (2.6-8.5); Neutrophils Absolute Auto 5.7 K/mm3 (1.3-6.7); Neutrophils Percent Auto 64.1 % (45.5-73.1); Nucleated Red Blood Cells Absolute Auto 0.1 K/mm3 (0.0-0.012); Nucleated Red Blood Cells Perc 0.6 % (0.0-0.2); Platelet Count Result 287 k/mm3 (150-375); Red Blood Count 3.44 M/mm3 (4.2-5.4); Red Cell Distribution Width 15.2 % (11.5-14.5); White Blood Count 8.9 K/mm3 (4.5-10.0)
[2021-05-16 06:13] LABS: Alanine Aminotransferase 26 U/L (4-35); Albumin Level 3.4 g/dL (3.5-5.1); Alkaline Phosphatase 70 U/L (38-126); Anion Gap 6 mmol/L (8-16); Aspartate Amino Transferase 35 U/L (14-36); Bilirubin,Total 0.7 mg/dL (0.2-1.3); Blood Urea Nitrogen 25 mg/dL (7-17); Calcium 9.1 mg/dL (8.4-10.2); Carbon Dioxide 36 mmol/L (22-30); Chloride 98 mmol/L (98-107); Creatine Kinase 83 U/L (30-135); Estimated CRCL calculation 39 ml/min; Estimated Glomerular Filt Rate 40; Glucose 143 mg/dL (65-110); Magnesium 1.4 mg/dL (1.6-2.3); Phosphorus 1.4 mg/dL (2.5-4.5); Potassium 3.1 mmol/L (3.4-5.0); Sodium 140 mmol/L (137-145)
[2021-05-16] MEDS: MAGNESIUM SULF 4 GM/WATER100ML 4 GM/100 ML BAG IVPB (06:56)
[2021-05-16] MEDS: POTASSIUM CHLORIDE 20 MEQ PACKET (FOR LIQUID) 40 MEQ PO (06:58)
[2021-05-16 07:50] LABS: Glucose Point of Care 154 mg/dl (65-105)
[2021-05-16] MEDS: MICONAZOLE NITRATE 2% CREAM 30 GM TUBE 1 APPLIC TOPICAL ×2 (09:36→20:19)
[2021-05-16] MEDS: FUROSEMIDE INJ 40 MG/4 ML VIAL IV PUSH (09:36)
[2021-05-16] MEDS: POTASSIUM PHOS,M-BASIC-D-BASIC 40 MMOL in SODIUM CHLORIDE 0.9% IV 250 ML 43.89 MMOL IVPB (09:36)
--- NOTE | 2021-05-16 11:10 | PM.PNNEP ---
Progress Note: A&P Assessment and Plan (1) Acute on chronic kidney failure: Code(s): N17.9 - Acute kidney failure, unspecified; N18.9 - Chronic kidney disease, unspecified Status: Acute Assessment and Plan: the patient has chronic kidney disease. This is most likely due to diabetes and hypertension. Vascular disease could also be playing a role. The small right kidney could be playing a role as well. The creatinine had been stable for a long period of time. Baseline creatinine seems to be about 1-1.2. The patient has acute kidney injury. Her renal ultrasound shows mild atrophy of the right kidney but normal-looking left kidney. Nothing acute here. Urinalysis shows blood protein and pyuria. All consistent with a UTI. She is getting treated for this. I am not sure why her culture came back negative. Perhaps she had had some antibiotics as an outpatient. Urine electrolytes look pre renal. CPK not impressively high. Most likely this is KENA from contrast and infection. Her creatinine is better yet, down to 1.3 Continuing antibiotics. she seems to be recovering from her episode of KENA (2) Acute metabolic encephalopathy: Code(s): G93.41 - Metabolic encephalopathy Status: Acute Assessment and Plan: This seems to be improved. Possibly due to infections. (3) Rhabdomyolysis: Code(s): M62.82 - Rhabdomyolysis Status: Acute Assessment and Plan: Her CPK is slightly elevated. Is probably not high enough to contribute to her kidney issues. (4) Pulmonary embolism: Code(s): I26.99 - Other pulmonary embolism without acute cor pulmonale Status: Acute Assessment and Plan: She is on Lovenox (5) Abnormal urinalysis: Code(s): R82.90 - Unspecified abnormal findings in urine Status: Acute Assessment and Plan: culture negative (6) Fluid overload, unspecified: Code(s): E87.70 - Fluid overload, unspecified Status: Acute Assessment and Plan: this hopefully will improve as the kidneys improve urine output is good. She is breathing fine on room air. Will change diuretics to p.o. (7) Hyperkalemia: Code(s): E87.5 - Hyperkalemia Status: Acute Assessment and Plan: she had 1 high potassium but this has resolved. (8) GERD (gastroesophageal reflux disease): Code(s): K21.9 - Gastro-esophageal reflux disease without esophagitis Status: Acute (9) Type 2 diabetes mellitus with hyperglycemia: Code(s): E11.65 - Type 2 diabetes mellitus with hyperglycemia Status: Acute Assessment and Plan: She is on Accu-Cheks and sliding-scale insulin Subjective Date/time seen: 05/16/21 11:10 Interval history: Patient feels better. No chest pain or shortness of breath. Exam Narrative: WDWN in NAD skin no rash or sq nodules head ncat lungs clear bilaterally. cor reg no rub Or gallop abd BS+ nontender and soft ext no edema or cyanosis. Objective Data Vital Signs Vital Signs: Vital Signs - 24 hr 05/15/21 12:00 05/15/21 14:00 05/15/21 16:00 Temperature 36.1 C L Pulse Rate 93 96 93 Respiratory Rate 16 Blood Pressure 127/55 L Pulse Oximetry 98 05/15/21 17:25 05/15/21 19:58 05/15/21 20:00 Temperature 36.9 C Pulse Rate 101 H 101 H Respiratory Rate 16 Blood Pressure 125/59 L Pulse Oximetry 96 96 05/16/21 00:00 05/16/21 04:00 05/16/21 04:14 Temperature 36.3 C L Pulse Rate 99 92 93 Respiratory Rate 16 Blood Pressure 110/51 L Pulse Oximetry 96 Intake/Output Intake/Output: Intake & Output 05/13/21 05/14/21 05/15/21 05/16/21 23:59 23:59 23:59 23:59 Intake Total 2820 1385 1790 100 Output Total 1200 2925 5175 1200 Balance 1620 -1540 -3385 -1100 Meds/Results Medications: Active Medications Generic Name Dose Route Start Last Admin Trade Name Freq PRN Reason Stop Dose Admin Acetaminophen 65
[2021-05-16 11:59] LABS: Glucose Point of Care 188 mg/dl (65-105)
--- NOTE | 2021-05-16 12:20 | P.PNIM_ITS ---
Progress Note: A&P Assessment and Plan (1) Pneumonia: Code(s): J18.9 - Pneumonia, unspecified organism Status: Acute Assessment and Plan: * Repeat chest xray in the am shows pulmonary edema with vascular congestion with PNA * Chest x-ray: Pulmonary vascular congestion and increasing mild pulmonary edema, Sm to Mod right and Sm left pleural effusion, and cardiomegaly * started on azithromycin and ceftriaxone. Day 5 * Sputum to be attempted for culture. * COVID-19 is felt to be less likely. * Continue aspiration precautions. (2) Congestive heart failure: Code(s): I50.9 - Heart failure, unspecified Status: Acute Assessment and Plan: * Chest xray from 05/15/21 shows pulmonary congestion with increasing edema, and pleural effusions * IV Lasix 40mg BID * Echocardiogram ejection fraction was 60 to 65% with diastolic dysfunction * Strict I/O * Urinary catheter, DC and voiding trial * Probably acute exacerbation of diastolic heart failure, secondary to renal failure * Daily weights (3) Abnormal urinalysis: Code(s): R82.90 - Unspecified abnormal findings in urine Status: Acute Assessment and Plan: * UA repeated showed cloudy yellow urine with 2+ blood, WBC 16-20, Ur. Bacteria trace, leukocyte esterase trace * Repeat urine culture shows no growth * On ceftriaxone currently for PNA (4) Pulmonary embolism: Code(s): I26.99 - Other pulmonary embolism without acute cor pulmonale Status: Acute Assessment and Plan: * Continue therapeutic Lovenox * Echocardiogram ejection fraction was 60 to 65% with diastolic dysfunction * lower extremity venous Doppler ultrasounds Show no DVT in bilateral lower legs * CTA from the shows PE * Telemonitor showed SR at this time continue to monitor (5) Acute on chronic kidney failure: Code(s): N17.9 - Acute kidney failure, unspecified; N18.9 - Chronic kidney disease, unspecified Status: Acute Assessment and Plan: * BUN/Cr getting better 25/1.30 * Secondary to over diuresis and poor oral intake. * Avoid nephrotoxic agents. * Urinary catheter, DC * Monitor I/O closely. * Renal ultrasound unremarkable * Nephrology consult thank you (6) Type 2 diabetes mellitus with hyperglycemia: Code(s): E11.65 - Type 2 diabetes mellitus with hyperglycemia Status: Acute Assessment and Plan: * Current glucose 143 * Accu checks AC/HS * Poorly controlled * hemoglobin A1c greater than 10% * continue with sliding scale insulin * Initiate 27 units Lantus at night * NPH 16 units x 1 now * Trend glucose (7) Atrial fibrillation, new onset: Code(s): I48.91 - Unspecified atrial fibrillation Status: Acute Assessment and Plan: * Rate is controlled * Continue tele monitor * Continue therapeutic Lovenox for now * Will need to transition to oral anticoagulation * Echocardiogram ejection fraction was 60 to 65% with diastolic dysfunction * TSH 2.850 (8) Hypothyroidism: Code(s): E03.9 - Hypothyroidism, unspecified Status: Acute Assessment and Plan: * Transition levothyroxine back to PO * TSH 2.850 (9) Hypertension: Code(s): I10 - Essential (primary) hypertension Status: Acute Assessment and Plan: * BP 110/51 * blood pressures were soft upon ad
--- NOTE | 2021-05-16 12:20 | PM.IMPN ---
Progress Note: A&P Assessment and Plan (1) Pneumonia: Code(s): J18.9 - Pneumonia, unspecified organism Status: Acute Assessment and Plan: Repeat chest xray in the am shows pulmonary edema with vascular congestion with PNA Chest x-ray: Pulmonary vascular congestion and increasing mild pulmonary edema, Sm to Mod right and Sm left pleural effusion, and cardiomegaly started on azithromycin and ceftriaxone. Day 5 Sputum to be attempted for culture. COVID-19 is felt to be less likely. Continue aspiration precautions. (2) Congestive heart failure: Code(s): I50.9 - Heart failure, unspecified Status: Acute Assessment and Plan: Chest xray from 05/15/21 shows pulmonary congestion with increasing edema, and pleural effusions IV Lasix 40mg BID Echocardiogram ejection fraction was 60 to 65% with diastolic dysfunction Strict I/O Urinary catheter, DC and voiding trial Probably acute exacerbation of diastolic heart failure, secondary to renal failure Daily weights (3) Abnormal urinalysis: Code(s): R82.90 - Unspecified abnormal findings in urine Status: Acute Assessment and Plan: UA repeated showed cloudy yellow urine with 2+ blood, WBC 16-20, Ur. Bacteria trace, leukocyte esterase trace Repeat urine culture shows no growth On ceftriaxone currently for PNA (4) Pulmonary embolism: Code(s): I26.99 - Other pulmonary embolism without acute cor pulmonale Status: Acute Assessment and Plan: Continue therapeutic Lovenox Echocardiogram ejection fraction was 60 to 65% with diastolic dysfunction lower extremity venous Doppler ultrasounds Show no DVT in bilateral lower legs CTA from the 30th shows PE Telemonitor showed SR at this time continue to monitor (5) Acute on chronic kidney failure: Code(s): N17.9 - Acute kidney failure, unspecified; N18.9 - Chronic kidney disease, unspecified Status: Acute Assessment and Plan: BUN/Cr getting better 25/1.30 Secondary to over diuresis and poor oral intake. Avoid nephrotoxic agents. Urinary catheter, DC Monitor I/O closely. Renal ultrasound unremarkable Nephrology consult thank you (6) Type 2 diabetes mellitus with hyperglycemia: Code(s): E11.65 - Type 2 diabetes mellitus with hyperglycemia Status: Acute Assessment and Plan: Current glucose 143 Accu checks AC/HS Poorly controlled hemoglobin A1c greater than 10% continue with sliding scale insulin Initiate 27 units Lantus at night NPH 16 units x 1 now Trend glucose (7) Atrial fibrillation, new onset: Code(s): I48.91 - Unspecified atrial fibrillation Status: Acute Assessment and Plan: Rate is controlled Continue tele monitor Continue therapeutic Lovenox for now Will need to transition to oral anticoagulation Echocardiogram ejection fraction was 60 to 65% with diastolic dysfunction TSH 2.850 (8) Hypothyroidism: Code(s): E03.9 - Hypothyroidism, unspecified Status: Acute Assessment and Plan: Transition levothyroxine back to PO TSH 2.850 (9) Hypertension: Code(s): I10 - Essential (primary) hypertension Status: Acute Assessment and Plan: BP 110/51 blood pressures were soft upon admission Antihypertensives currently on hold. Trend BP Adjust medication as needed (10) Rhabdomyolysis: Code(s): M62.82 - Rhabdomyolysis Status: Acute Assessment and Plan: this is probably irrelevant and a mute point CK 83 today Could be the cause for the renal failure Trend (11) Acute metabolic encephalopathy: Code(s): G93.41 - Metabolic encephalopathy Status: Acute Assessment and Plan: Seems to be resolved, she is much more interactive and alert when talking to her Could be from PNA, or worsening
--- NOTE | 2021-05-16 12:50 | PC.NURSE ---
call to pharmacy to request that IV abx that were started today are staggered due to pt having only one IV access that was started under ultrasound
[2021-05-16 16:29] LABS: Glucose Point of Care 219 mg/dl (65-105)
[2021-05-16] MEDS: INSULIN ASPART (*BKC) 100 UNITS/ML SUB-Q (16:32)
--- NOTE | 2021-05-16 16:43 | PCPTNOTE ---
Attempted to see patient at 1530. Patient unable to follow any directions to participate with therapy at this time. RN notified.
[2021-05-16 20:10] LABS: Glucose Point of Care 268 mg/dl (65-105)
[2021-05-16] MEDS: INSULIN GLARGINE (*BKC) 100 UNITS/ML 27 UNITS SUB-Q (20:18)
[2021-05-16] MEDS: ENOXAPARIN 120 MG/0.8 ML SYRINGE 110 MG SUB-Q (20:19)
[2021-05-17] VITALS (10 sets, daily range): BP systolic 102–111; BP diastolic 46–56; PULSE 64–104; RESP 18–20; TEMP 36.6–37.7; O2SAT 91–97
--- NOTE | 2021-05-17 01:17 | PC.NURSE ---
Daylight Savings Time For Daylight Savings Time Ending in the Fall - Clocks are moved back. For Daylight Savings Time Beginning in the Spring - Clocks are moved ahead. For [facility], the time of change occurs at 0200 hrs. Time is taken from the windows server engineer. This entry on the patient's chart recognizes the change in time reflected during documentation. Example: 2 entries for vital signs may be charted for 0200 hrs.
[2021-05-17] MEDS: LEVOTHYROXINE SODIUM 125 MCG TABLET PO (05:49)
[2021-05-17 05:54] LABS: Glucose Point of Care 163 mg/dl (65-105)
[2021-05-17 05:59] LABS: Basophils Absolute Auto 0.1 K/mm3 (0.0-0.1); Basophils Percent Auto 0.5 % (0.2-1.2); Eosinophils Absolute Auto 0.4 K/mm3 (0-0.3); Eosinophils Percent Auto 4.8 % (0-4.4); Hematocrit 33.4 % (37.0-47.0); Hemoglobin 10.6 g/dL (12.0-15.0); Immature Granulocyte Absolute 0.17 K/mm3 (0.00-0.031); Immature Granulocyte Percent A 1.8 % (0-0.5); Lymphocytes Absolute Auto 1.17 K/mm3 (0.9-3.2); Lymphocytes Percent Auto 12.7 % (18.3-44.2); Mean Corpuscular HGB Conc 31.7 g/dl (32-36); Mean Corpuscular Hemoglobin 29.9 pg (26-34); Mean Corpuscular Volume 94.1 fl (80-100); Mean Platelet Volume 9.7 fl (7.4-10.4); Monocytes Absolute Auto 1.1 K/mm3 (0.1-0.6); Monocytes Percent Auto 12.3 % (2.6-8.5); Neutrophils Absolute Auto 6.2 K/mm3 (1.3-6.7); Neutrophils Percent Auto 67.9 % (45.5-73.1); Nucleated Red Blood Cells Absolute Auto 0.1 K/mm3 (0.0-0.012); Nucleated Red Blood Cells Perc 0.8 % (0.0-0.2); Platelet Count Result 280 k/mm3 (150-375); Red Blood Count 3.55 M/mm3 (4.2-5.4); Red Cell Distribution Width 15.9 % (11.5-14.5); White Blood Count 9.2 K/mm3 (4.5-10.0)
[2021-05-17 06:15] LABS: Alanine Aminotransferase 23 U/L (4-35); Albumin Level 3.5 g/dL (3.5-5.1); Alkaline Phosphatase 73 U/L (38-126); Anion Gap 6 mmol/L (8-16); Aspartate Amino Transferase 32 U/L (14-36); Bilirubin,Total 0.8 mg/dL (0.2-1.3); Blood Urea Nitrogen 21 mg/dL (7-17); Calcium 8.6 mg/dL (8.4-10.2); Carbon Dioxide 35 mmol/L (22-30); Chloride 96 mmol/L (98-107); Estimated CRCL calculation 46 ml/min; Estimated Glomerular Filt Rate 48; Glucose 163 mg/dL (65-110); Magnesium 1.6 mg/dL (1.6-2.3); Phosphorus 2.6 mg/dL (2.5-4.5); Potassium 3.7 mmol/L (3.4-5.0); Sodium 137 mmol/L (137-145)
[2021-05-17] MEDS: FUROSEMIDE 40 MG TABLET PO (07:54)
[2021-05-17] MEDS: MICONAZOLE NITRATE 2% CREAM 30 GM TUBE 1 APPLIC TOPICAL ×2 (07:54→20:24)
[2021-05-17 08:13] LABS: Glucose Point of Care 176 mg/dl (65-105)
--- NOTE | 2021-05-17 09:08 | PCPTNOTE ---
Attempted to see patient for Physical Therapy session. Upon entering patient's room, patient lying supine with eyes closed. Patient was asked to participate with therapy, and pt stated yeah however, patient was unable to answer any further questions and continued to keep her eyes closed and turned her head to the side. RN notified.
[2021-05-17] MEDS: ONDANSETRON INJ 4 MG/2 ML VIAL IV PUSH (10:19)
[2021-05-17] MEDS: MORPHINE SULFATE (*CRX) 2 MG/ML INJ 1 MG IV PUSH (11:22)
[2021-05-17 11:29] LABS: Glucose Point of Care 205 mg/dl (65-105)
--- NOTE | 2021-05-17 11:38 | PM.PNNEP ---
Progress Note: A&P Assessment and Plan (1) Acute on chronic kidney failure: Code(s): N17.9 - Acute kidney failure, unspecified; N18.9 - Chronic kidney disease, unspecified Status: Acute Assessment and Plan: the patient has chronic kidney disease. This is most likely due to diabetes and hypertension. Vascular disease could also be playing a role. The small right kidney could be playing a role as well. The creatinine had been stable for a long period of time. Baseline creatinine seems to be about 1-1.2. The patient has acute kidney injury. Her renal ultrasound shows mild atrophy of the right kidney but normal-looking left kidney. Nothing acute here. Urinalysis shows blood protein and pyuria. All consistent with a UTI. She is getting treated for this. I am not sure why her culture came back negative. Perhaps she had had some antibiotics as an outpatient. Urine electrolytes look pre renal. CPK not impressively high. Most likely this is KENA from contrast and infection. Her creatinine is down to 1.1. (2) Acute metabolic encephalopathy: Code(s): G93.41 - Metabolic encephalopathy Status: Acute Assessment and Plan: This seems Is worse again. (3) Rhabdomyolysis: Code(s): M62.82 - Rhabdomyolysis Status: Acute Assessment and Plan: Her CPK was high. Latest test was normal (4) Pulmonary embolism: Code(s): I26.99 - Other pulmonary embolism without acute cor pulmonale Status: Acute Assessment and Plan: She is on Lovenox (5) Abnormal urinalysis: Code(s): R82.90 - Unspecified abnormal findings in urine Status: Acute Assessment and Plan: culture negative (6) Fluid overload, unspecified: Code(s): E87.70 - Fluid overload, unspecified Status: Acute Assessment and Plan: this hopefully will improve as the kidneys improve urine output is good. She is breathing fine on room air. Will change diuretics to p.o. (7) Hyperkalemia: Code(s): E87.5 - Hyperkalemia Status: Acute Assessment and Plan: she had 1 high potassium but this has resolved. (8) GERD (gastroesophageal reflux disease): Code(s): K21.9 - Gastro-esophageal reflux disease without esophagitis Status: Acute (9) Type 2 diabetes mellitus with hyperglycemia: Code(s): E11.65 - Type 2 diabetes mellitus with hyperglycemia Status: Acute Assessment and Plan: She is on Accu-Cheks and sliding-scale insulin Subjective Date/time seen: 05/17/21 11:38 Interval history: Patient is confused today. Looking about, moaning, may answer yes no question briefly but always. in the room. Exam Narrative: WDWN in NAD skin no rash or sq nodules head ncat lungs clear bilaterally. cor reg no rub Or gallop abd BS+ nontender and soft ext no edema or cyanosis. Objective Data Vital Signs Vital Signs: Vital Signs - 24 hr 05/16/21 14:00 05/16/21 16:00 05/16/21 20:00 Temperature 36.3 C L Pulse Rate 95 95 96 Respiratory Rate 16 Blood Pressure 123/42 L Pulse Oximetry 96 05/16/21 20:03 05/17/21 00:00 05/17/21 04:00 Temperature 36.6 C Pulse Rate 96 94 96 Respiratory Rate 16 Blood Pressure 108/38 L Pulse Oximetry 94 05/17/21 04:25 05/17/21 04:36 05/17/21 08:00 Temperature 36.6 C Pulse Rate 64 98 Respiratory Rate 18 Blood Pressure 107/56 L Pulse Oximetry 97 Intake/Output Intake/Output: Intake & Output 05/14/21 05/15/21 05/16/21 05/17/21 23:59 23:59 23:59 22:59 Intake Total 1385 1790 1423.33 260 Output Total 2925 5175 2800 Balance -1540 -7625 -1376.67 260 Meds/Results Medications: Active Medications Generic Name Dose Route Start Last Admin Trade Name Freq PRN Reason Stop Dose Admin Acetaminophen 650 mg 05/10/21 22:00 Acetaminophen 650 Mg Suppository RECTAL Q6H PRN Mild Pain (1-3) or Fever
--- NOTE | 2021-05-17 12:00 | PM.IMPN ---
Progress Note: A&P Assessment and Plan (1) Pneumonia: Code(s): J18.9 - Pneumonia, unspecified organism Status: Acute Assessment and Plan: Repeat chest xray in the am shows pulmonary edema with vascular congestion with PNA Chest x-ray: Pulmonary vascular congestion and increasing mild pulmonary edema, Sm to Mod right and Sm left pleural effusion, and cardiomegaly started on azithromycin and ceftriaxone completed five days Sputum to be attempted for culture. COVID-19 is felt to be less likely. Continue aspiration precautions. (2) Congestive heart failure: Code(s): I50.9 - Heart failure, unspecified Status: Acute Assessment and Plan: Chest xray from 05/15/21 shows pulmonary congestion with increasing edema, and pleural effusions IV Lasix 40mg BID Echocardiogram ejection fraction was 60 to 65% with diastolic dysfunction Strict I/O Urinary catheter, DC and voiding trial Probably acute exacerbation of diastolic heart failure, secondary to renal failure Daily weights (3) Abnormal urinalysis: Code(s): R82.90 - Unspecified abnormal findings in urine Status: Acute Assessment and Plan: UA repeated showed cloudy yellow urine with 2+ blood, WBC 16-20, Ur. Bacteria trace, leukocyte esterase trace Repeat urine culture shows no growth On ceftriaxone currently for PNA (4) Pulmonary embolism: Code(s): I26.99 - Other pulmonary embolism without acute cor pulmonale Status: Acute Assessment and Plan: Continue therapeutic Lovenox Echocardiogram ejection fraction was 60 to 65% with diastolic dysfunction lower extremity venous Doppler ultrasounds Show no DVT in bilateral lower legs CTA from the 30th shows PE Telemonitor showed SR at this time continue to monitor (5) Acute on chronic kidney failure: Code(s): N17.9 - Acute kidney failure, unspecified; N18.9 - Chronic kidney disease, unspecified Status: Acute Assessment and Plan: BUN/Cr getting better 21/1.10 Secondary to over diuresis and poor oral intake. Avoid nephrotoxic agents. Monitor I/O closely. Renal ultrasound unremarkable Nephrology consult thank you (6) Type 2 diabetes mellitus with hyperglycemia: Code(s): E11.65 - Type 2 diabetes mellitus with hyperglycemia Status: Acute Assessment and Plan: Current glucose 163 Accu checks AC/HS Poorly controlled hemoglobin A1c greater than 10% continue with sliding scale insulin Initiate 27 units Lantus at night NPH 16 units x 1 now Trend glucose (7) Atrial fibrillation, new onset: Code(s): I48.91 - Unspecified atrial fibrillation Status: Acute Assessment and Plan: Rate is controlled Continue tele monitor Continue therapeutic Lovenox for now Will need to transition to oral anticoagulation Echocardiogram ejection fraction was 60 to 65% with diastolic dysfunction TSH 2.850 (8) Hypothyroidism: Code(s): E03.9 - Hypothyroidism, unspecified Status: Acute Assessment and Plan: Transition levothyroxine back to PO TSH 2.850 (9) Hypertension: Code(s): I10 - Essential (primary) hypertension Status: Acute Assessment and Plan: BP 107/56 blood pressures were soft upon admission Antihypertensives currently on hold. Trend BP Adjust medication as needed (10) Rhabdomyolysis: Code(s): M62.82 - Rhabdomyolysis Status: Acute Assessment and Plan: Resolved at this time this is probably irrelevant and a mute point CK 83 today Could be the cause for the renal failure Trend (11) Acute metabolic encephalopathy: Code(s): G93.41 - Metabolic encephalopathy Status: Acute Assessment and Plan: Seems to be resolved, she is much more interactive and alert when talking to her Could be from PNA,
--- NOTE | 2021-05-17 12:00 | P.PNIM_ITS ---
Progress Note: A&P Assessment and Plan (1) Pneumonia: Code(s): J18.9 - Pneumonia, unspecified organism Status: Acute Assessment and Plan: * Repeat chest xray in the am shows pulmonary edema with vascular congestion with PNA * Chest x-ray: Pulmonary vascular congestion and increasing mild pulmonary edema, Sm to Mod right and Sm left pleural effusion, and cardiomegaly * started on azithromycin and ceftriaxone completed five days * Sputum to be attempted for culture. * COVID-19 is felt to be less likely. * Continue aspiration precautions. (2) Congestive heart failure: Code(s): I50.9 - Heart failure, unspecified Status: Acute Assessment and Plan: * Chest xray from 05/15/21 shows pulmonary congestion with increasing edema, and pleural effusions * IV Lasix 40mg BID * Echocardiogram ejection fraction was 60 to 65% with diastolic dysfunction * Strict I/O * Urinary catheter, DC and voiding trial * Probably acute exacerbation of diastolic heart failure, secondary to renal failure * Daily weights (3) Abnormal urinalysis: Code(s): R82.90 - Unspecified abnormal findings in urine Status: Acute Assessment and Plan: * UA repeated showed cloudy yellow urine with 2+ blood, WBC 16-20, Ur. Bacteria trace, leukocyte esterase trace * Repeat urine culture shows no growth * On ceftriaxone currently for PNA (4) Pulmonary embolism: Code(s): I26.99 - Other pulmonary embolism without acute cor pulmonale Status: Acute Assessment and Plan: * Continue therapeutic Lovenox * Echocardiogram ejection fraction was 60 to 65% with diastolic dysfunction * lower extremity venous Doppler ultrasounds Show no DVT in bilateral lower legs * CTA from the shows PE * Telemonitor showed SR at this time continue to monitor (5) Acute on chronic kidney failure: Code(s): N17.9 - Acute kidney failure, unspecified; N18.9 - Chronic kidney disease, unspecified Status: Acute Assessment and Plan: * BUN/Cr getting better 31/07. * Secondary to over diuresis and poor oral intake. * Avoid nephrotoxic agents. * Monitor I/O closely. * Renal ultrasound unremarkable * Nephrology consult thank you (6) Type 2 diabetes mellitus with hyperglycemia: Code(s): E11.65 - Type 2 diabetes mellitus with hyperglycemia Status: Acute Assessment and Plan: * Current glucose 163 * Accu checks AC/HS * Poorly controlled * hemoglobin A1c greater than 10% * continue with sliding scale insulin * Initiate 27 units Lantus at night * NPH 16 units x 1 now * Trend glucose (7) Atrial fibrillation, new onset: Code(s): I48.91 - Unspecified atrial fibrillation Status: Acute Assessment and Plan: * Rate is controlled * Continue tele monitor * Continue therapeutic Lovenox for now * Will need to transition to oral anticoagulation * Echocardiogram ejection fraction was 60 to 65% with diastolic dysfunction * TSH 2.850 (8) Hypothyroidism: Code(s): E03.9 - Hypothyroidism, unspecified Status: Acute Assessment and Plan: * Transition levothyroxine back to PO * TSH 2.850 (9) Hypertension: Code(s): I10 - Essential (primary) hypertension Status: Acute Assessment and Plan: * BP 107/56 * blood pressures were soft upon admission * A
[2021-05-17] MEDS: MAGNESIUM SULF 2 GM/WATER 50ML 2 GM/50 ML BAG IVPB (12:20)
[2021-05-17] MEDS: INSULIN ASPART (*BKC) 100 UNITS/ML SUB-Q ×2 (13:02→17:08)
[2021-05-17] MEDS: BISACODYL 10 MG SUPPOSITORY RECTAL (14:24)
[2021-05-17] MEDS: BISACODYL 5 MG TABLET EC 10 MG PO (16:25)
[2021-05-17 16:40] LABS: Glucose Point of Care 222 mg/dl (65-105)
[2021-05-17] MEDS: ENOXAPARIN 120 MG/0.8 ML SYRINGE 110 MG SUB-Q (20:23)
[2021-05-17] MEDS: INSULIN GLARGINE (*BKC) 100 UNITS/ML 27 UNITS SUB-Q (20:23)
[2021-05-17 20:32] LABS: Glucose Point of Care 225 mg/dl (65-105)
[2021-05-18] VITALS: PULSE 88
[2021-05-18 04:00] VITALS: PULSE 86
[2021-05-18 05:02] VITALS: BP 113/48; PULSE 92; RESP 18; TEMP 36.6; O2SAT 91
[2021-05-18] MEDS: LEVOTHYROXINE SODIUM 125 MCG TABLET PO (06:37)
[2021-05-18 07:09] LABS: Basophils Absolute Auto 0.1 K/mm3 (0.0-0.1); Basophils Percent Auto 0.5 % (0.2-1.2); Eosinophils Absolute Auto 0.4 K/mm3 (0-0.3); Eosinophils Percent Auto 4.6 % (0-4.4); Hematocrit 33.3 % (37.0-47.0); Hemoglobin 10.1 g/dL (12.0-15.0); Immature Granulocyte Absolute 0.11 K/mm3 (0.00-0.031); Immature Granulocyte Percent A 1.2 % (0-0.5); Lymphocytes Absolute Auto 1.25 K/mm3 (0.9-3.2); Lymphocytes Percent Auto 13.6 % (18.3-44.2); Mean Corpuscular HGB Conc 30.3 g/dl (32-36); Mean Corpuscular Hemoglobin 29.5 pg (26-34); Mean Corpuscular Volume 97.4 fl (80-100); Monocytes Absolute Auto 1.3 K/mm3 (0.1-0.6); Monocytes Percent Auto 13.9 % (2.6-8.5); Neutrophils Absolute Auto 6.1 K/mm3 (1.3-6.7); Neutrophils Percent Auto 66.2 % (45.5-73.1); Nucleated Red Blood Cells Perc 0.3 % (0.0-0.2); Platelet Count Result 211 k/mm3 (150-375); Red Blood Count 3.42 M/mm3 (4.2-5.4); Red Cell Distribution Width 16.5 % (11.5-14.5); White Blood Count 9.2 K/mm3 (4.5-10.0)
[2021-05-18 07:20] LABS: Alanine Aminotransferase 19 U/L (4-35); Albumin Level 3.2 g/dL (3.5-5.1); Alkaline Phosphatase 60 U/L (38-126); Anion Gap 2 mmol/L (8-16); Aspartate Amino Transferase 32 U/L (14-36); Bilirubin,Total 0.9 mg/dL (0.2-1.3); Blood Urea Nitrogen 23 mg/dL (7-17); Calcium 8.4 mg/dL (8.4-10.2); Carbon Dioxide 36 mmol/L (22-30); Chloride 93 mmol/L (98-107); Estimated CRCL calculation 50 ml/min; Estimated Glomerular Filt Rate 54; Glucose 179 mg/dL (65-110); Magnesium 2.1 mg/dL (1.6-2.3); Phosphorus 3.1 mg/dL (2.5-4.5); Potassium 3.7 mmol/L (3.4-5.0); Sodium 131 mmol/L (137-145)
[2021-05-18 07:35] LABS: Glucose Point of Care 143 mg/dl (65-105)
[2021-05-18 08:00] VITALS: PULSE 90
[2021-05-18] MEDS: MICONAZOLE NITRATE 2% CREAM 30 GM TUBE 1 APPLIC TOPICAL (08:09)
[2021-05-18] MEDS: FUROSEMIDE 40 MG TABLET PO (08:09)
--- NOTE | 2021-05-18 08:40 | PM.DS ---
DS: Admitting Diagnosis Discharge Date Date of service 05/18/2021 at 8:40 a.m. Admitting Diagnosis KENA/CHF/pneumonia DS: Discharge Diagnosis Discharge Diagnosis (1) Pneumonia: Code(s): J18.9 - Pneumonia, unspecified organism Status: Acute Assessment and Plan: Repeat chest xray in the am shows pulmonary edema with vascular congestion with PNA Chest x-ray: Pulmonary vascular congestion and increasing mild pulmonary edema, Sm to Mod right and Sm left pleural effusion, and cardiomegaly started on azithromycin and ceftriaxone completed five days Sputum to be attempted for culture. COVID-19 is felt to be less likely. Continue aspiration precautions. (2) Congestive heart failure: Code(s): I50.9 - Heart failure, unspecified Status: Acute Assessment and Plan: Chest xray from 05/15/21 shows pulmonary congestion with increasing edema, and pleural effusions IV Lasix 40mg BID Echocardiogram ejection fraction was 60 to 65% with diastolic dysfunction Strict I/O Urinary catheter, DC and voiding trial Probably acute exacerbation of diastolic heart failure, secondary to renal failure Daily weights (3) Abnormal urinalysis: Code(s): R82.90 - Unspecified abnormal findings in urine Status: Acute Assessment and Plan: UA repeated showed cloudy yellow urine with 2+ blood, WBC 16-20, Ur. Bacteria trace, leukocyte esterase trace Repeat urine culture shows no growth On ceftriaxone currently for PNA (4) Pulmonary embolism: Code(s): I26.99 - Other pulmonary embolism without acute cor pulmonale Status: Acute Assessment and Plan: Continue therapeutic Lovenox Echocardiogram ejection fraction was 60 to 65% with diastolic dysfunction lower extremity venous Doppler ultrasounds Show no DVT in bilateral lower legs CTA from the shows PE Telemonitor showed SR at this time continue to monitor (5) Acute on chronic kidney failure: Code(s): N17.9 - Acute kidney failure, unspecified; N18.9 - Chronic kidney disease, unspecified Status: Acute Assessment and Plan: BUN/Cr getting better 23/1.00 Secondary to over diuresis and poor oral intake. Avoid nephrotoxic agents. Monitor I/O closely. Renal ultrasound unremarkable Nephrology consult thank you (6) Type 2 diabetes mellitus with hyperglycemia: Code(s): E11.65 - Type 2 diabetes mellitus with hyperglycemia Status: Acute Assessment and Plan: Current glucose 179 Accu checks AC/HS Poorly controlled hemoglobin A1c greater than 10% continue with sliding scale insulin Initiate 27 units Lantus at night NPH 16 units x 1 now Trend glucose (7) Atrial fibrillation, new onset: Code(s): I48.91 - Unspecified atrial fibrillation Status: Acute Assessment and Plan: Rate is controlled Continue tele monitor Continue therapeutic Lovenox for now Will need to transition to oral anticoagulation Echocardiogram ejection fraction was 60 to 65% with diastolic dysfunction TSH 2.850 (8) Hypothyroidism: Code(s): E03.9 - Hypothyroidism, unspecified Status: Acute Assessment and Plan: Transition levothyroxine back to PO TSH 2.850 (9) Hypertension: Code(s): I10 - Essential (primary) hypertension Status: Acute Assessment and Plan: BP 113/48 blood pressures were soft upon admission Antihypertensives currently on hold. Trend BP Adjust medication as needed (10) Rhabdomyolysis: Code(s): M62.82 - Rhabdomyolysis Status: Acute Assessment and Plan: Resolved at this time this is probably irrelevant and a mute point CK 83 today Could be the cause for the renal failure Trend (11) Acute metabolic encephalopathy: Code(s): G93.41 - Metabolic encephalopathy Status: Acute
--- NOTE | 2021-05-18 08:40 | P.DS_ITS ---
DS: Admitting Diagnosis Discharge Date Date of service 05/18/2021 at 8:40 a.m. Admitting Diagnosis KENA/CHF/pneumonia DS: Discharge Diagnosis Discharge Diagnosis (1) Pneumonia: Code(s): J18.9 - Pneumonia, unspecified organism Status: Acute Assessment and Plan: * Repeat chest xray in the am shows pulmonary edema with vascular congestion with PNA * Chest x-ray: Pulmonary vascular congestion and increasing mild pulmonary edema, Sm to Mod right and Sm left pleural effusion, and cardiomegaly * started on azithromycin and ceftriaxone completed five days * Sputum to be attempted for culture. * COVID-19 is felt to be less likely. * Continue aspiration precautions. (2) Congestive heart failure: Code(s): I50.9 - Heart failure, unspecified Status: Acute Assessment and Plan: * Chest xray from 05/15/21 shows pulmonary congestion with increasing edema, and pleural effusions * IV Lasix 40mg BID * Echocardiogram ejection fraction was 60 to 65% with diastolic dysfunction * Strict I/O * Urinary catheter, DC and voiding trial * Probably acute exacerbation of diastolic heart failure, secondary to renal failure * Daily weights (3) Abnormal urinalysis: Code(s): R82.90 - Unspecified abnormal findings in urine Status: Acute Assessment and Plan: * UA repeated showed cloudy yellow urine with 2+ blood, WBC 16-20, Ur. Bacteria trace, leukocyte esterase trace * Repeat urine culture shows no growth * On ceftriaxone currently for PNA (4) Pulmonary embolism: Code(s): I26.99 - Other pulmonary embolism without acute cor pulmonale Status: Acute Assessment and Plan: * Continue therapeutic Lovenox * Echocardiogram ejection fraction was 60 to 65% with diastolic dysfunction * lower extremity venous Doppler ultrasounds Show no DVT in bilateral lower legs * CTA from the shows PE * Telemonitor showed SR at this time continue to monitor (5) Acute on chronic kidney failure: Code(s): N17.9 - Acute kidney failure, unspecified; N18.9 - Chronic kidney disease, unspecified Status: Acute Assessment and Plan: * BUN/Cr getting better 23/1.00 * Secondary to over diuresis and poor oral intake. * Avoid nephrotoxic agents. * Monitor I/O closely. * Renal ultrasound unremarkable * Nephrology consult thank you (6) Type 2 diabetes mellitus with hyperglycemia: Code(s): E11.65 - Type 2 diabetes mellitus with hyperglycemia Status: Acute Assessment and Plan: * Current glucose 179 * Accu checks AC/HS * Poorly controlled * hemoglobin A1c greater than 10% * continue with sliding scale insulin * Initiate 27 units Lantus at night * NPH 16 units x 1 now * Trend glucose (7) Atrial fibrillation, new onset: Code(s): I48.91 - Unspecified atrial fibrillation Status: Acute Assessment and Plan: * Rate is controlled * Continue tele monitor * Continue therapeutic Lovenox for now * Will need to transition to oral anticoagulation * Echocardiogram ejection fraction was 60 to 65% with diastolic dysfunction * TSH 2.850 (8) Hypothyroidism: Code(s): E03.9 - Hypothyroidism, unspecified Status: Acute Assessment and Plan: * Transition levothyroxine back to PO * TSH 2.850 (9) Hypertension: Code(s): I10 - Essential (
[2021-05-18 09:30] VITALS: BMI 10.0
[2021-05-18] MEDS: INSULIN ASPART (*BKC) 100 UNITS/ML SUB-Q (11:38)
[2021-05-18 11:56] LABS: Glucose Point of Care 219 mg/dl (65-105)
[2021-05-18 12:00] VITALS: PULSE 90
[2021-05-18] MEDS: ACETAMINOPHEN 650 MG SUPPOSITORY RECTAL (13:32)
--- NOTE | 2021-05-18 14:22 | PCNWS ---
Weekly nutritional screen. Patient is tolerating current diet of DBCC/Soft and bite sized, Level 6/Moderately Thick, Level 3. 11/3-MBS performed. Plans for discharge today. No nutritional needs at this time.
[2021-05-18 14:50] LABS: EDCOVIDSCREEN Negative (Negative)
[2021-05-18 16:00] VITALS: PULSE 88
== END 2021-05-18 16:45 | DRG 193 ==
PROVIDERS: Physician Assistant; Admitting Provider Family Medicine; PCP Internal Medicine; Visit Provider Nurse Practitioner
DX: J18.9 Pneumonia, unspecified organism (principal); I26.99 Other pulmonary embolism without acute cor pulmonale; G93.41 Metabolic encephalopathy; I50.31 Acute diastolic (congestive) heart failure; I13.0 Hypertensive heart and chronic kidney disease with heart failure and stage 1 through stage 4 chronic kidney disease, or unspecified chronic kidney disease; N17.9 Acute kidney failure, unspecified; M62.82 Rhabdomyolysis; L03.115 Cellulitis of right lower limb; R47.01 Aphasia; Z20.822 Contact with and (suspected) exposure to COVID-19; I12.9 Hypertensive chronic kidney disease with stage 1 through stage 4 chronic kidney disease, or unspecified chronic kidney disease; E11.22 Type 2 diabetes mellitus with diabetic chronic kidney disease; N18.30 Chronic kidney disease, stage 3 unspecified; E11.65 Type 2 diabetes mellitus with hyperglycemia; E03.9 Hypothyroidism, unspecified; D64.9 Anemia, unspecified; E87.5 Hyperkalemia; I48.91 Unspecified atrial fibrillation; K21.9 Gastro-esophageal reflux disease without esophagitis; N32.81 Overactive bladder; E78.5 Hyperlipidemia, unspecified; E53.8 Deficiency of other specified B group vitamins; M19.90 Unspecified osteoarthritis, unspecified site; Z85.828 Personal history of other malignant neoplasm of skin; Z85.3 Personal history of malignant neoplasm of breast; Z87.891 Personal history of nicotine dependence
CPT/HCPCS: 36415; 36600; 71045; 74176; 76775; 80053; 81001; 82140; 82375; 82550; 82570; 82607; 82728; 82746; 82805; 82948; 83036; 83050; 83540; 83550; 83735; 83880; 83935; 84100; 84145; 84300; 84443; 85025; 85652; 86140; 86160; 87040; 87086; 87426; 92526; 92610; 92611; 93970; 95816; 97110; 97161; 97166; 97530; 97535; A9270; C8929; C9803; J0456; J0696; J0743; J1650; J1815; J1940; J2270; J2405; J3370; J3475; J7050; Q9957

== ENCOUNTER 2021-09-28 16:38 | Outpatient (CLI) | payer MEDICARE, SELFPAY ==
[2021-09-28 17:04] LABS: Basophils Absolute Auto 0.04 K/mm3 (0.00-0.10); Basophils Percent Auto 0.6 % (0.0-1.0); Eosinophils Percent Auto 6.3 % (1.0-6.0); Hemoglobin 10.9 g/dL (11.7-13.8); Immature Granulocyte Absolute 0.01 K/mm3 (0.00-0.00); Immature Granulocyte Percent A 0.2 % (0.0-0.0); Lymphocytes Absolute Auto 1.53 K/mm3 (1.10-4.50); Lymphocytes Percent Auto 23.9 % (18.0-42.0); Mean Corpuscular HGB Conc 31.1 g/dL (32.0-36.0); Mean Corpuscular Volume 99.4 fL (78.0-102.0); Mean Platelet Volume 11.9 fl (9.2-11.8); Monocytes Absolute Auto 0.63 K/mm3 (0.10-0.90); Monocytes Percent Auto 9.9 % (2.0-11.0); Neutrophils Absolute Auto 3.8 K/mm3 (1.7-7.2); Neutrophils Percent Auto 59.1 % (50.0-70.0); Platelet Count Result 120 K/mm3 (150-420); Red Blood Count 3.52 M/mm3 (4.20-5.40); Red Cell Distribution Width 14.3 % (11.6-14.4); White Blood Count 6.4 K/mm3 (4.8-10.8)
[2021-09-28 17:23] LABS: Add Urine Microscopic? YES; Appearance Urine Clear (Clear); Bilirubin Urine Negative (Negative); Blood Urine Negative (Negative); Color Urine Light Yellow (Yellow); Glucose Urine UA Negative (Negative); Ketones Urine Negative (Negative); Leukocyte Esterase Ur 1+ LEU/UL (Negative); Nitrate Urine Negative (Negative); Protein Urine Negative (Negative); Urobilinogen Urine 0.2 mg/dL (0.2-1.0); pH Urine 7.5 (5.0-8.0)
[2021-09-28 17:51] LABS: Bacteria Urine 3+ /hpf; RBC Urine 0-2 /hpf (0-2); Squamous Epithelial Cell Urine Occasional /hpf (Few)
[2021-09-28 17:55] LABS: Hemoglobin A1C 8.9 % (<5.7)
[2021-09-28 18:11] LABS: Creatinine Urine 61.97 mg/dL (40-278); MALB Creatinine Ratio 20.9 mg/g (0-30); Microalbumin Urine Random < 13.0 mg/L
[2021-09-28 18:36] LABS: Alanine Aminotransferase 18 U/L (14-59); Albumin Level 3.3 g/dL (3.4-5.0); Alkaline Phosphatase 56 U/L (46-116); Anion Gap 9 mmol/L (8-16); Aspartate Amino Transferase 24 U/L (15-37); Bilirubin,Total 0.4 mg/dL (0.00-1.00); Blood Urea Nitrogen 31 mg/dL (7-18); Calcium 9.3 mg/dL (8.5-10.1); Carbon Dioxide 25 mmol/L (21-32); Chloride 100 mmol/L (98-108); Cholesterol 158 mg/dL (0-200); Creatine Kinase 69 U/L (26-192); Estimated Glomerular Filt Rate 41; Glucose 137 mg/dL (70-99); HDL Direct 46 mg/dL (40-60); LDL Cholesterol Calculated 90 mg/dL (<130); Osmolality Calculated 286 mOsm/kg (285-295); Potassium 5.3 mmol/L (3.5-5.1); Sodium 134 mmol/L (136-145); Total Protein 6.8 g/dL (6.4-8.2); Triglycerides 110 mg/dL (0-150); Vitamin B12 1687 pg/mL (193-986)
== END 2021-09-28 16:39 | disposition home or self-care (01) ==
LOC: CHSLAB 16:41
PROVIDERS: PCP Internal Medicine; Visit Provider Internal Medicine
DX: E78.5 Hyperlipidemia, unspecified (principal); I10 Essential (primary) hypertension; E53.8 Deficiency of other specified B group vitamins; M81.0 Age-related osteoporosis without current pathological fracture; E11.65 Type 2 diabetes mellitus with hyperglycemia; N39.0 Urinary tract infection, site not specified
CPT/HCPCS: 36415; 80053; 80061; 81001; 82043; 82306; 82550; 82607; 83036; 85025; 87077; 87086; 87088; 87186

== ENCOUNTER 2021-10-03 10:10 | Outpatient (CLI) | payer MEDICARE, SELFPAY ==
[2021-10-06 20:13] LABS: Vitamin D 25 Hydroxy 35 ng/mL (30-100)
== END 2021-10-03 10:11 | disposition home or self-care (01) ==
LOC: CHSLAB 10:12
PROVIDERS: PCP Internal Medicine; Visit Provider Internal Medicine
DX: E78.5 Hyperlipidemia, unspecified (principal); I10 Essential (primary) hypertension; E53.8 Deficiency of other specified B group vitamins; M81.0 Age-related osteoporosis without current pathological fracture; E11.65 Type 2 diabetes mellitus with hyperglycemia; N39.0 Urinary tract infection, site not specified
CPT/HCPCS: 36415; 82306

== ENCOUNTER 2021-11-30 10:22 | Outpatient (CLI) | payer MEDICARE, SELFPAY ==
[2021-11-30 10:52] LABS: Basophils Absolute Auto 0.02 K/mm3 (0.00-0.10); Basophils Percent Auto 0.3 % (0.0-1.0); Eosinophils Absolute Auto 0.46 K/mm3 (0.02-0.50); Eosinophils Percent Auto 7.2 % (1.0-6.0); Hematocrit 32.8 % (35.0-42.0); Hemoglobin 10.6 g/dL (11.7-13.8); Immature Granulocyte Absolute 0.01 K/mm3 (0.00-0.00); Immature Granulocyte Percent A 0.2 % (0.0-0.0); Lymphocytes Absolute Auto 1.01 K/mm3 (1.10-4.50); Lymphocytes Percent Auto 15.9 % (18.0-42.0); Mean Corpuscular HGB Conc 32.3 g/dL (32.0-36.0); Mean Corpuscular Hemoglobin 30.5 pg (27.0-31.0); Mean Corpuscular Volume 94.5 fL (78.0-102.0); Mean Platelet Volume 9.9 fl (9.2-11.8); Monocytes Absolute Auto 0.64 K/mm3 (0.10-0.90); Monocytes Percent Auto 10.1 % (2.0-11.0); Neutrophils Absolute Auto 4.2 K/mm3 (1.7-7.2); Neutrophils Percent Auto 66.3 % (50.0-70.0); Platelet Count Result 222 K/mm3 (150-420); Red Blood Count 3.47 M/mm3 (4.20-5.40); Red Cell Distribution Width 13.4 % (11.6-14.4); White Blood Count 6.4 K/mm3 (4.8-10.8)
== END 2021-11-30 10:23 | disposition home or self-care (01) ==
LOC: CHSLAB 10:29
PROVIDERS: PCP Internal Medicine; Visit Provider Internal Medicine
DX: D69.6 Thrombocytopenia, unspecified (principal)
CPT/HCPCS: 36415; 85025

== ENCOUNTER 2021-12-04 09:55 | Outpatient (CLI) | payer MEDICARE, SELFPAY ==
--- NOTE | ~2021-12-04 | CT_ITS ---
EXAMINATION: CTA chest PE protocol DATE: 12/04/2021 11:06 INDICATION: Pulmonary embolism TECHNIQUE: Computed tomography (CT) pulmonary angiogram of the chest was performed with 100 mL Omnipa que-350 intravenous contrast. Additional 3D reconstructions utilizing coronal maximum intensity proje ction (MIP) were performed. Automated exposure control and iterative reconstruction technique were em ployed. The dose-length product was 765.88 mGy-cm. COMPARISON: 05/09/2021 FINDINGS: Excellent contrast opacification of the pulmonary arteries. There is mild streak artifact from dense contrast in the superior vena cava and right atrium. Mild motion artifact at the lung bases which mil dly decreases sensitivity in some of the smaller basilar subsegmental pulmonary arteries. No pulmonar y embolism identified. Mild bibasilar atelectasis. No pneumonia, pulmonary edema, pleural effusion or pneumothorax. Mild cardiomegaly . Minimal change in a small pericardial effusion. Atherosclerotic co ronary artery calcifications. Aortic valve calcification. Thoracic aorta is normal in caliber with no dissection. Mild likely reactive mediastinal lymphadenopathy with largest lymph node at the AP windo w measuring 1.0 cm in maximal short axis diameter. There is also mild right hilar lymphadenopathy wit h 1.9 x 1.4 cm lymph node/lymph nodes. Surgical clips at the left breast. Mild thoracic dextroscolios is with moderate spondylosis. Consider multiple old left rib fractures. Severe right glenohumeral ost eoarthritis. IMPRESSION: 1. No pulmonary embolism or other acute cardiopulmonary disease. 2. Cardiomegaly with unchanged small pericardial effusion. Reviewed, dictated and finalized at location B.
[2021-12-04 10:23] LABS: Estimated Glomerular Filt Rate 46
== END 2021-12-04 09:56 | disposition home or self-care (01) ==
LOC: CHSIMG 09:56
PROVIDERS: PCP Internal Medicine; Visit Provider Internal Medicine
DX: Z09 Encounter for follow-up examination after completed treatment for conditions other than malignant neoplasm (principal); I26.99 Other pulmonary embolism without acute cor pulmonale
CPT/HCPCS: 71275; Q9967

== ENCOUNTER 2022-03-05 10:14 | Outpatient (CLI) | payer MEDICARE, SELFPAY ==
[2022-03-05 10:54] LABS: Basophils Absolute Auto 0.02 K/mm3 (0.00-0.10); Basophils Percent Auto 0.3 % (0.0-1.0); Eosinophils Absolute Auto 0.27 K/mm3 (0.02-0.50); Eosinophils Percent Auto 4.4 % (1.0-6.0); Hematocrit 31.8 % (35.0-42.0); Hemoglobin 9.9 g/dL (11.7-13.8); Immature Granulocyte Absolute 0.02 K/mm3 (0.00-0.00); Immature Granulocyte Percent A 0.3 % (0.0-0.0); Lymphocytes Absolute Auto 0.84 K/mm3 (1.10-4.50); Lymphocytes Percent Auto 13.6 % (18.0-42.0); Mean Corpuscular HGB Conc 31.1 g/dL (32.0-36.0); Mean Corpuscular Hemoglobin 29.6 pg (27.0-31.0); Mean Corpuscular Volume 95.2 fL (78.0-102.0); Mean Platelet Volume 10.6 fl (9.2-11.8); Monocytes Absolute Auto 0.69 K/mm3 (0.10-0.90); Monocytes Percent Auto 11.2 % (2.0-11.0); Neutrophils Absolute Auto 4.3 K/mm3 (1.7-7.2); Neutrophils Percent Auto 70.2 % (50.0-70.0); Platelet Count Result 223 K/mm3 (150-420); Red Blood Count 3.34 M/mm3 (4.20-5.40); White Blood Count 6.2 K/mm3 (4.8-10.8)
[2022-03-05 11:04] LABS: Appearance Urine Cloudy (Clear); Bilirubin Urine Negative (Negative); Color Urine Light Yellow (Yellow); Glucose Urine UA Negative (Negative); Ketones Urine Trace (Negative); Leukocyte Esterase Ur 2+ (Negative); Nitrate Urine Negative (Negative); Protein Urine Trace (Negative); Specific Grav Ur 1.015 (1.010-1.020); pH Urine 6.5 (5.0-8.0)
[2022-03-05 11:10] LABS: Hemoglobin A1C 8.5 % (<5.7)
[2022-03-05 11:12] LABS: Add Urine Microscopic? YES; Bacteria Urine 4+ /hpf; Blood Urine Trace-lysed (Negative); RBC Urine 0-2 /hpf (0-2); Squamous Epithelial Cell Urine Few /hpf (Few); WBC Urine 31-50 /hpf (0-3)
[2022-03-05 11:41] LABS: Creatinine Urine 96.69 mg/dL (40-278); MALB Creatinine Ratio 88.3 mg/g (0-30); Microalbumin Urine Random 85.4 mg/L
[2022-03-05 11:51] LABS: Alanine Aminotransferase 21 U/L (14-59); Albumin Level 3.3 g/dL (3.4-5.0); Alkaline Phosphatase 72 U/L (46-116); Anion Gap 6 mmol/L (8-16); Aspartate Amino Transferase 21 U/L (15-37); Bilirubin,Total 0.4 mg/dL (0.00-1.00); Blood Urea Nitrogen 25 mg/dL (7-18); Carbon Dioxide 30 mmol/L (21-32); Chloride 97 mmol/L (98-108); Cholesterol 115 mg/dL (0-200); Creatine Kinase 73 U/L (26-192); Estimated Glomerular Filt Rate 40; Ferritin 36 ng/mL (8-252); Free T4 Free Thyroxine 1.41 ng/dL (0.76-1.46); Glucose 184 mg/dL (70-99); HDL Direct 43 mg/dL (40-60); Iron 38 ug/dL (50-170); LDL Cholesterol Calculated 53 mg/dL (<130); Osmolality Calculated 285 mOsm/kg (285-295); Percent Iron Saturation 9 % (12-57); Potassium 4.3 mmol/L (3.5-5.1); Sodium 133 mmol/L (136-145); Thyroid Stimulating Hormone 5.87 uIU/mL (0.36-3.74); Total Protein 6.6 g/dL (6.4-8.2); Triglycerides 96 mg/dL (0-150)
== END 2022-03-05 10:15 | disposition home or self-care (01) ==
LOC: CHSLAB 10:17
PROVIDERS: PCP Internal Medicine; Visit Provider Internal Medicine
DX: E78.2 Mixed hyperlipidemia (principal); E11.65 Type 2 diabetes mellitus with hyperglycemia; N18.2 Chronic kidney disease, stage 2 (mild); D64.9 Anemia, unspecified; E53.8 Deficiency of other specified B group vitamins; E03.4 Atrophy of thyroid (acquired); N39.0 Urinary tract infection, site not specified
CPT/HCPCS: 36415; 80053; 80061; 81001; 82043; 82550; 82728; 83036; 83540; 83550; 84439; 84443; 84550; 85025; 87077; 87086; 87088; 87186